=== PATIENT | male | born 1940 | race Caucasian/White ===

== ENCOUNTER 2017-04-09 17:08 | Inpatient (IN) | payer MEDICARE, OTHER ==
[~2017-04-09] VITALS: Ht 165.1 cm; Wt 52.4 kg
[~2017-04-09 17:08] MED LIST: ASPI1TAB7 PO; DONE10TA14 PO; NAME10SO PO; OMEP40CA2 PO; PRAV10 PO; TAMS0.4C4 PO
--- NOTE | 2017-04-09 17:52 | PD ---
HPI Chief Complaint: Thompson Act Time Seen by Provider: 17:32 Travel History International Travel<30 days: No Contact w/Intl Traveler<30days: No Traveled to known affect area: No History of Present Illness HPI This is a 76-year-old male with a history of dementia with acute agitation and aggressive behavior, who presents under Thompson act from the detention facility. Per daughter is at the bedside, the facility has been trying to increase his antipsychotic meds to no avail. He continues to have episodes of acute agitation and violence towards the fellow patients and staff. Patient's daughter states that they called her to the facility to help calm him down. She states that when she got there, he was much more calm and not his aggressive. He presents here today under the Thompson act with the above complaints. PFSH Past Medical History High Cholesterol: Yes Social History Alcohol Use: No Tobacco Use: No Substance Use: No Allergies-Medications (Allergen,Severity, Reaction): Coded Allergies: No Known Allergies (Unverified , 05/10/16) Reported Meds & Prescriptions Reported Meds & Active Scripts Active Review of Systems ROS Limitations: Clinical Condition, Other: (dementia) Except as stated in HPI: all other systems reviewed are Neg (review of systems Limited secondary to patient's demented status.) General / Constitutional: No: Fever, Chills HENT: No: Headaches, Neck Pain Cardiovascular: No: Chest Pain or Discomfort, Palpitations Respiratory: No: Cough, Shortness of Breath Gastrointestinal: No: Nausea, Vomiting, Abdominal Pain Musculoskeletal: No: Weakness, Pain Neurologic: Positive: Other (agitation and aggressive behavior), No: Headache Physical Exam Narrative GENERAL: Well-developed well-nourished gentleman in no acute respiratory distress. SKIN: Focused skin assessment warm/dry. HEAD: Atraumatic. Normocephalic. EYES: No scleral icterus. No injection or drainage. ENT: No nasal bleeding or discharge. Mucous membranes pink and moist. NECK: Trachea midline. No JVD. CARDIOVASCULAR: Regular rate and rhythm. No murmur appreciated. RESPIRATORY: No accessory muscle use. Clear to auscultation. Breath sounds equal bilaterally. GASTROINTESTINAL: Abdomen soft, non-tender, nondistended. Hepatic and splenic margins not palpable. MUSCULOSKELETAL: No obvious deformities. No clubbing. No cyanosis. No edema. NEUROLOGICAL: Awake and alert. No obvious cranial nerve deficits. Motor grossly within normal limits. Normal speech. PSYCHIATRIC: Appropriate mood and affect; insight and judgment normal. Data Data Last Documented VS Vital Signs Date Time Temp Pulse Resp B/P Pulse Ox O2 Delivery O2 Flow Rate FiO2 04/09/17 17:56 97.9 88 18 134/75 98 Orders Complete Blood Count With Diff (04/09/17 17:33) Comprehensive Metabolic Panel (04/09/17 17:33) Thyroid Stimulating Hormone (04/09/17 17:33) Urinalysis - C+S If Indicated (04/09/17 17:33) Psych Screen (04/09/17 17:33) Drug Screen, Random Urine (04/09/17 17:33) Ct Brain W/O Iv Contrast(Rout) (04/09/17 17:33) Chest, Single Ap (04/09/17 17:33) Labs Laboratory Tests Test 04/09/17 04/09/17 17:45 18:30 White Blood Count 9.8 TH/MM3 Red Blood Count 5.38 MIL/MM3 Hemoglobin 15.1 GM/DL Hematocrit 44.9 % Mean Corpuscular Volume 83.4 FL Mean Corpuscular Hemoglobin 28.0 PG Mean Corpuscular Hemoglobin 33.5 % Concent Red Cell Distribution Width 14.1 % Platelet Count 137 TH/MM3 Mean Platelet Volume 9.6 FL Neutrophils (%) (Auto) 80.5 % Lymphocytes (%) (Auto) 12.6 % Monocytes (%) (Auto) 5.9 % Eosinophils (%) (Auto) 0.3 % Basophils (%) (Auto) 0.7 % Neutrophils # (Auto) 7.9 TH/MM3 Lymphocytes # (Auto) 1.2 TH/MM3 Monocytes # (Auto) 0.6 TH/MM3 Eosinophils # (Auto) 0.0 TH/MM3 Basophils # (Auto) 0.1 TH/MM3 CBC Comment DIFF FINAL Differential Comment Sodium Level 142 MEQ/L Potassium Level 3.7 MEQ/L Chloride Level 109 MEQ/L Carbon Dioxide Level 24.2 MEQ/L Anion Gap 9 MEQ/L Blood Urea Nitrogen 34 MG/DL Creatinine 1.15 MG/DL Estimat Glomerular Filtration 62 ML/MIN Rate Random Glucose 113 MG/DL Calcium Level 9.1 MG/DL Total Bilirubin 0.8 MG/DL Aspartate Amino Transf 22 U/L (AST/SGOT) Alanine Aminotransferase 24 U/L (ALT/SGPT) Alkaline Phosphatase 99 U/L Total Protein 7.4 GM/DL Albumin 4.2 GM/DL Thyroid Stimulating Hormone 0.938 uIU/ML 3rd Gen Urine Color YELLOW Urine Turbidity CLEAR Urine pH 6.5 Urine Specific [place] 1.027 Urine Protein TRACE mg/dL Urine Glucose (UA) NEG mg/dL Urine Ketones TRACE mg/dL Urine Occult Blood NEG Urine Nitrite NEG Urine Bilirubin NEG Urine Urobilinogen 2.0 MG/DL Urine Leukocyte Esterase NEG Urine RBC 1 /hpf Urine WBC 1 /hpf Urine Mucus FEW /lpf Microscopic Urinalysis Comment CULT NOT INDICATED MDM Medical Decision Making Medical Screen Exam Complete: Yes Emergency Medical Condition: Yes Differential Diagnosis Psychosis versus metabolic derangement versus worsening dementia. Narrative Course 76-year-old male brought in under a Thompson act for psychotic behavior at his correction. The patient has a history of dementia. Apparently according to the daughter, they've been trying to stabilize his mood with Seroquel. They've been unsuccessful and had a Thompson acted. The patient is awake and cooperative here. Daughter states that he can get psychotic at any time. He is cooperative and in no acute distress. He'll be medically clear for psychiatric admission. He does have some mild ketones in his urine. He'll also be given by mouth fluids. Diagnosis Primary Impression: paroxysmal psychoses. Additional Impressions: Mild dehydration History of dementia medically cleared Franklyn Joy MD Apr 09, 2017 17:52
[2017-04-09 17:56] VITALS: BP 134/75; PULSE 88; RESP 18; TEMP 97.9; O2SAT 98
[2017-04-09 17:59] LABS: AUTOMATED NEUTROPHIL # 7.9 TH/MM3 (1.8-7.7); BASOPHIL # 0.1 TH/MM3 (0-0.2); BASOPHIL % 0.7 % (0.0-2.0); EOSINOPHIL % 0.3 % (0.0-4.0); HEMATOCRIT 44.9 % (39.0-51.0); HEMO FLAGS DIFF FINAL; LYMPH % 12.6 % (9.0-44.0); LYMPHOCYTE # 1.2 TH/MM3 (1.0-4.8); MEAN CELL VOLUME 83.4 FL (80.0-100.0); MEAN CORPUSCULAR HGB CONC 33.5 % (32.0-36.0); MONO % 5.9 % (0.0-8.0); NEUT % 80.5 % (16.0-70.0); PLATELET COUNT 137 TH/MM3 (150-450); RED BLOOD COUNT 5.38 MIL/MM3 (4.50-5.90); RED CELL DISTRIBUTION WIDTH 14.1 % (11.6-17.2); WHITE BLOOD COUNT 9.8 TH/MM3 (4.0-11.0)
--- NOTE | 2017-04-09 18:02 | RADRPT ---
EXAM DATE/TIME: 04/09/2017 17:42 [facility] COMPARISON: No previous studies available for comparison. INDICATIONS : Altered mental status. MEDICAL HISTORY : None. SURGICAL HISTORY : None. ENCOUNTER: Initial ACUITY: 1 day PAIN SCORE: 0/10 LOCATION: chest FINDINGS: A single view of the chest demonstrates the lungs to be symmetrically aerated without evidence of mas s, infiltrate or effusion. Calcifications are present in the aorta. The cardiomediastinal contours a re unremarkable. Osseous structures are intact. CONCLUSION: No acute disease. Chago Jara MD on April 09, 2017 at 17:59 Board Certified Radiologist. This report was verified electronically.
[2017-04-09 18:08] LABS: ANION GAP 9 MEQ/L (5-15); BICARBONATE 24.2 MEQ/L (21.0-32.0); BLOOD UREA NITROGEN 34 MG/DL (7-18); CHLORIDE 109 MEQ/L (98-107); GLOMERULAR FILTRATION RATE 62 ML/MIN (>89); POTASSIUM 3.7 MEQ/L (3.5-5.1); SODIUM (NA) 142 MEQ/L (136-145)
[2017-04-09 18:09] LABS: ALT (GPT) 24 U/L (12-78); AST (GOT) 22 U/L (15-37)
[2017-04-09 18:19] LABS: ALKALINE PHOSPHATASE 99 U/L (45-117); TOTAL BILIRUBIN ADULT 0.8 MG/DL (0.2-1.0)
--- NOTE | 2017-04-09 18:32 | RADRPT ---
EXAM DATE/TIME: 04/09/2017 18:11 [facility] COMPARISON: No previous studies available for comparison. INDICATIONS : Altered mental status. RADIATION DOSE: 49.86 CTDIvol (mGy) MEDICAL HISTORY : Non-responsive. SURGICAL HISTORY : Non-responsive. ENCOUNTER: Initial ACUITY: 1 day PAIN SCALE: 0/10 LOCATION: cranial TECHNIQUE: Multiple contiguous axial images were obtained of the head. Using automated exposure control and adj ustment of the mA and/or kV according to patient size, radiation dose was kept as low as reasonably a chievable to obtain optimal diagnostic quality images. DICOM format image data is available electro nically for review and comparison. FINDINGS: CEREBRUM: The ventricles are normal for age. No evidence of midline shift, mass lesion, hemorrhage or acute in farction. No extra-axial fluid collections are seen. POSTERIOR FOSSA: The cerebellum and brainstem are intact. The 4th ventricle is midline. The cerebellopontine angle i s unremarkable. EXTRACRANIAL: The visualized portion of the orbits is intact. SKULL: The calvaria is intact. No evidence of skull fracture. CONCLUSION: Negative noncontrast CT. Chago Jara MD on April 09, 2017 at 18:29 Board Certified Radiologist. This report was verified electronically.
[2017-04-09 18:41] LABS: BLOOD, URINE NEG (NEG); COMMENT (UR) CULT NOT INDICATED; CULTURE IF INDICATED CULT NOT INDICATED; GLUCOSE,URINE NEG (NEG); KETONE, URINE TRACE mg/dL (NEG); MUCUS URINE FEW /lpf (OCC); NITRITE,URINE NEG (NEG); PH, URINE 6.5 (5.0-8.5); URINE COLOR YELLOW (YELLW/STRAW)
[2017-04-09 19:11] VITALS: BP 123/59; PULSE 57; RESP 18; O2SAT 97
[2017-04-09] MEDS ORDERED: ABH GEL TOPICAL (19:23)
[2017-04-09] MEDS ORDERED: MEMA28CA PO (19:25)
[2017-04-09] MEDS ORDERED: TRAZ50TA12 PO (19:27)
[2017-04-09] MEDS ORDERED: TRAM50TA PO (19:36)
[2017-04-09] MEDS ORDERED: ATEN100T PO (19:36)
[2017-04-09] MEDS ORDERED: LORA1TAB12 PO ×2 (19:36)
[2017-04-09] MEDS ORDERED: PRAV20TA2 PO (19:36)
[2017-04-09] MEDS ORDERED: OMEP20TA PO (19:36)
[2017-04-09] MEDS ORDERED: TAMS0.4C4 PO (19:36)
[2017-04-09] MEDS ORDERED: ASPI-110 PO (19:36)
[2017-04-09] MEDS ORDERED: DONE10TA7 PO (19:36)
[2017-04-09] MEDS ORDERED: SERO300T PO (19:36)
[2017-04-09 21:42] LABS: AMPHETAMINE, URINE NEG (NEG); BARBITURATES, URINE NEG (NEG); COCAINE, URINE NEG (NEG)
[2017-04-10] VITALS (9 sets, daily range): BP systolic 109–187; BP diastolic 62–110; PULSE 53–88; RESP 18–20; TEMP 96.5–98.7; O2SAT 93–100
[2017-04-10] MEDS ORDERED: LORazepam 2 MG/ML VIAL IM ONE ×4 (05:30→18:30)
[2017-04-10] MEDS: HALOPERIDOL LACTATE 5 MG/ML AMP ONE ×2 (11:23→18:18)
--- NOTE | 2017-04-10 11:40 | PD ---
History of Present Illness Chief Complaint: Psychiatric Symptoms Time Seen by Provider: 11:00 Travel History International Travel<30 Days: No Contact w/Intl Traveler<30days: No Known affected area: No Legal Status Legal Status: Donna Act Thompson Act Signed By: Donna Act Comment: Dr. Aleks Ma History of Present Illness: History of Present Illness HPI This is a 76-year-old male with a history of dementia, resident of [facility] a [facility] who is under a BA .The reports states that " patient believes he is 16 years old. Seeing and talking to people. Undressing in hallways . Physically abusive with staff and other patient's." Per daughter who was at the bedside when the patient arrived to ED , the facility has been trying to increase his antipsychotic medications to no avail over the past 2 weeks and he continues to have episodes of acute agitation and violence towards the fellow patients and staff. EMR is reviewed. The patient was last evaluated by psychiatry in 2016. The patient has required ETO since he has been in Ed due to agitation, wandering behavior, not accepting verbal redirection. Patient is seen in J pod. Sitter is present. He is wandering, attempting to grab at staff, grabbing at housekeeping equipment as well. He responds to his name. demonstrates poor attention, poor concentration. Unable to focus and unable to answer questions posed to him. He tells me " You don 't like to work. You like to stay home and have sex". No other clinical information is obtained due to his degree of cognitive impairment [facility] Past Medical History High Cholesterol: Yes Diminished Hearing: No Tetanus Vaccination: < 5 Years Influenza Vaccination: Yes Psychiatric History Psychiatric History Hx Psychiatric Treatment: HX: ALZHEIMER'S DEMENTIA History of Inpatient Treatment: No Guns or firearms in home: No Social History Resident of [facility]. Born in [place] Hx Alcohol Use: No Hx Tobacco Use: No Hx Substance Use: No Hx of Substance Use Treatment: No Family Psychiatric History Unknown Allergies-Medications (Allergen,Severity, Reaction): Coded Allergies: No Known Allergies (Unverified , 05/10/16) Reported Meds & Prescriptions Reported Meds & Active Scripts Active Reported Aspirin 81 (Aspirin) 81 Mg Tabdr 81 Mg PO DAILY Atenolol 100 Mg Tab 100 Mg PO DAILY Tamsulosin (Tamsulosin HCl) 0.4 Mg Cap 0.4 Mg PO HS Donepezil 10 Mg Tab 10 Mg PO HS Pravastatin 20 Mg Tab 20 Mg PO HS Tramadol (Tramadol HCl) 50 Mg Tab 50 Mg PO TID Seroquel (Quetiapine Fumarate) 300 Mg Tab 150 Mg PO BID Lorazepam 1 Mg Tab 1 Mg PO Q6H PRN Lorazepam 1 Mg Tab 1 Mg PO BID Omeprazole 20 Mg Tab 20 Mg PO DAILY Trazodone (Trazodone HCl) 50 Mg Tab 25 Mg PO HS Namenda Xr (Memantine) 28 Mg Caper 28 Mg PO DAILY [Abh Gel ] 1 Ml TOPICAL Q4HR Review of Systems ROS Limitations: Combative, Poor Historian Exam Alert: Yes [place]: Person (only) Mood: Agitated Affect: Other (labile) Speech: Clear, Illogical Eye Contact: Normal Memory Intact: Comment (poor/ Impaired) Hallucinations: Other (does not appear to be responding tointernal s timuli) Delusions: No Suicidal: Ideation (unable to determine) Homicidal: Ideation (unable to determine) Insight/Judgement Poor. Impaired. MDM Medical Decision Making Medical Record Reviewed: Yes Assessment/Plan 76 year old male with hx of dementia who has increase in agitation, aggression as well as other behaviors for the past 2 weeks. Recent medication changes have been ineffective and the patient requires inpatient treatment in order to maintain his safety as well as the safety of others and to adjust medications in a safe and controlled environment. Admit to inpatient unit Orders Complete Blood Count With Diff (04/09/17 17:33) Comprehensive Metabolic Panel (04/09/17 17:33) Thyroid Stimulating Hormone (04/09/17 17:33) Urinalysis - C+S If Indicated (04/09/17 17:33) Psych Screen (04/09/17 17:33) Drug Screen, Random Urine (04/09/17 17:33) Ct Brain W/O Iv Contrast(Rout) (04/09/17 17:33) Chest, Single Ap (04/09/17 17:33) Haloperidol Inj (Haldol Inj) (04/10/17 00:00) Lorazepam Inj (Ativan Inj) (04/10/17 00:00) Restraints Non-Violent RAMA.Q3H (04/09/17 23:53) Lorazepam Inj (Ativan Inj) (04/10/17 05:30) Diet Regular Basic (04/10/17 Breakfast) Diet Regular Basic (04/10/17 Lunch) Haloperidol Inj (Haldol Inj) (04/10/17 11:23) Results Vital Signs Date Time Temp Pulse Resp B/P Pulse Ox O2 Delivery O2 Flow Rate FiO2 04/10/17 10:05 75 18 145/84 Room Air 04/10/17 06:00 80 20 117/62 93 Room Air 04/10/17 04:20 55 18 160/72 04/10/17 00:07 88 18 187/110 100 Room Air 04/09/17 19:11 57 18 123/59 97 Room Air 04/09/17 17:56 97.9 88 18 134/75 98 Laboratory Tests Test 04/09/17 04/09/17 17:45 18:30 White Blood Count 9.8 Red Blood Count 5.38 Hemoglobin 15.1 Hematocrit 44.9 Mean Corpuscular Volume 83.4 Mean Corpuscular Hemoglobin 28.0 Mean Corpuscular Hemoglobin 33.5 Concent Red Cell Distribution Width 14.1 Platelet Count 137 Mean Platelet Volume 9.6 Neutrophils (%) (Auto) 80.5 Lymphocytes (%) (Auto) 12.6 Monocytes (%) (Auto) 5.9 Eosinophils (%) (Auto) 0.3 Basophils (%) (Auto) 0.7 Neutrophils # (Auto) 7.9 Lymphocytes # (Auto) 1.2 Monocytes # (Auto) 0.6 Eosinophils # (Auto) 0.0 Basophils # (Auto) 0.1 CBC Comment DIFF FINAL Differential Comment Sodium Level 142 Potassium Level 3.7 Chloride Level 109 Carbon Dioxide Level 24.2 Anion Gap 9 Blood Urea Nitrogen 34 Creatinine 1.15 Estimat Glomerular Filtration 62 Rate Random Glucose 113 Calcium Level 9.1 Total Bilirubin 0.8 Aspartate Amino Transf 22 (AST/SGOT) Alanine Aminotransferase 24 (ALT/SGPT) Alkaline Phosphatase 99 Total Protein 7.4 Albumin 4.2 Thyroid Stimulating Hormone 0.938 3rd Gen Urine Color YELLOW Urine Turbidity CLEAR Urine pH 6.5 Urine Specific [place] 1.027 Urine Protein TRACE Urine Glucose (UA) NEG Urine Ketones TRACE Urine Occult Blood NEG Urine Nitrite NEG Urine Bilirubin NEG Urine Urobilinogen 2.0 Urine Leukocyte Esterase NEG Urine RBC 1 Urine WBC 1 Urine Mucus FEW Microscopic Urinalysis Comment CULT NOT INDICATED Urine Opiates Screen NEG Urine Barbiturates Screen NEG Urine Amphetamines Screen NEG Urine Benzodiazepines Screen NEG Urine Cocaine Screen NEG Urine Cannabinoids Screen NEG Diagnosis Primary Impression: Dementia with behavioral disturbance Additional Impression: Mild dehydration Admitting Information Admitting Physician Requests: Admit Problem Qualifiers Primary Impression: Dementia with behavioral disturbance Qualified Code: G30.8 - Alzheimer's dementia with behavioral disturbance, unspecified timing of dementia onset Chiara Bond [facility] Apr 10, 2017 11:40
[2017-04-10] MEDS ORDERED: ALUMINUM/MAGNESIUM/SIMETH 30 ML CUP PO PRN (11:45)
[2017-04-10] MEDS ORDERED: HALOPERIDOL LACTATE 5 MG/ML AMP IM ONE ×3 (11:45→18:00)
[2017-04-10] MEDS ORDERED: MAGNESIUM HYDROXIDE SUSP 30 ML CUP PO PRN (11:45)
[2017-04-10] MEDS ORDERED: ACETAMINOPHEN 325 MG TAB PO PRN (11:45)
[2017-04-11 06:00] VITALS: BP 133/80; PULSE 79; RESP 16; TEMP 97.8; O2SAT 94
[2017-04-11 10:53] LABS: ANION GAP 5 MEQ/L (5-15); BICARBONATE 29.6 MEQ/L (21.0-32.0); BLOOD UREA NITROGEN 32 MG/DL (7-18); CHLORIDE 109 MEQ/L (98-107); GLOMERULAR FILTRATION RATE 68 ML/MIN (>89); POTASSIUM 4.1 MEQ/L (3.5-5.1); SODIUM (NA) 144 MEQ/L (136-145)
[2017-04-11 10:56] LABS: HDL CHOLESTEROL 53.7 MG/DL (40.0-60.0); LDL CHOLESTEROL 113 MG/DL (0-99)
[2017-04-11] MEDS: MEMANTINE HCL 10 MG TAB PO SCH ×2 (11:00→21:32)
[2017-04-11] MEDS: ASPIRIN EC 81 MG TABEC PO SCH (11:00)
[2017-04-11] MEDS: PANTOPRAZOLE SOD 20 MG DELAYED RELEASE TAB PO SCH (11:00)
[2017-04-11] MEDS: QUEtiapine FUMARATE 300 MG TAB PO SCH ×2 (11:00→21:00)
--- NOTE | 2017-04-11 11:10 | HHI.HP ---
Provisional Diagnosis Admission Date Apr 10, 2017 at 11:33 [place] I. Dementia with behavioral disturbances [place] II. Deferred [place] III. BPH, HTN [place] IV. Advanced dementia [place] V. 35 Certification of Person's Competence To Provide Express and Informed Consent I have personally examined Arturo GarnettJr , a person being served at [facility] on, Apr 11, 2017 10:45. Express and informed consent means consent voluntarily given in writing, by a competent person, after sufficient explanation and disclosure of the subject matter involved to enable the person to make a knowing and willful decision without any element of force, fraud, deceit, duress, or other form of constraint or coercion. This person is 18 years of age or older, is not now known to be incompetent to consent to treatment with a guardian advocate, and does not have a health care surrogate or proxy currently making medical treatment decisions. I have found this person to be one of the following: [] Competent to provide express and informed consent, as defined above, for voluntary admission to this facility and is competent to provide express and informed consent for treatment. He/she has the consistent capacity to make well reasoned, willful, and knowing decisions concerning his or her medical or mental health treatment. The person fully and consistently understands the purpose of the admission for examination/placement and is fully capable of personally exercising all rights assured [place] [X] Incompetent to provide express and informed consent to voluntary admission, and this is incompetent to provide express and informed consent to treatment. The person must be transferred to involuntary status and a petition for a guardian advocate filed with the Circuit Court. [] Refusing to provide express and informed consent to voluntary admission but is competent to provide express and informed consent for treatment. The person must be discharged or transferred to involuntary status. Form shall be completed within 24 hours of a person's arrival at the receiving facility and filed in the clinical record of each person: 1. Admitted on a voluntary basis 2. Permitted to provide express and informed consent to his/her own treatment 3. Allowed to transfer from involuntary to voluntary status 4. Prior to permitting a person to consent to his or her own treatment after having been previously found incompetent to consent to treatment. History of Present Illness Capacity: Lacks Capacity HPI The patient is a is a 76-year-old man resident of [facility] a SNF, with psychiatric history of dementia, he is on Aricept 10 mg, Namenda 10 mg , Seroquel 150 minute 2 twice a day, trazodone 50 mg, medical history of BPH, HTN, who came to the ER under a BA . The reports states that "patient believes he is 16 years old. Seeing and talking to people. Undressing in hallways. Physically abusive with staff and other patient's." Per daughter on initial evaluation in the ER was at the bedside when the patient arrived to ED , she says that the facility has been trying to increase his antipsychotic medications over the past 2 weeks and he continues to have episodes of acute agitation and violence towards the fellow patients and staff. As per EMR is reviewed. The patient was last evaluated by psychiatry in 2016. The patient has required ETO since he has been in Ed due to agitation, wandering behavior, not accepting verbal redirection. As per Chiara Bond assessment yesterday Patient is seen in J pod. Sitter is present. He is wandering, attempting to grab at staff, grabbing at housekeeping equipment as well. He responds to his name. Demonstrates poor attention, poor concentration. Unable to focus and unable to answer questions posed to him. He tells me You dont like to work. You like to stay home and have sex". No other clinical information is obtained due to his degree of cognitive impairment. Today on psychiatric evaluation patient is found eating his breakfast, he seems to be calm, superficially cooperative, he is definitely confused and disorganized, he says that he is happy to be "here in this hotel". He described his mood as "very happy", he says that he lives somewhere in [place], but is unable to specify. He says that we are in September 1991, the cosmetics counter manager is Suman Brice. Patient does not know the reason of his hospitalization. He denies suicidal ideation, homicidal ideation, he denies visual and auditory hallucinations. Nurse in charge, Radha, is states that the patient has been on and off agitated in the unit, this morning he was running naked in the hallway, difficult to de-escalate verbally, hostile, alternating with periods of tranquility and good behavior. Review of Systems Constitutional: DENIES: Diaphoretic episodes, Fatigue, Fever, Weight gain, Weight loss, Chills, Dizziness, Change in appetite, Night Sweats Endocrine: DENIES: Heat/cold intolerance, Polydipsia, Polyuria, Polyphagia Eyes: DENIES: Blurred vision, Diplopia, Eye inflammation, Eye pain, Vision loss , Photosensitivity, Double Vision Respiratory: DENIES: Apneas, Cough, Snoring, Wheezing, Hemoptysis, Sputum production, Shortness of breath Cardiovascular: DENIES: Chest pain, Palpitations, Syncope, Dyspnea on Exertion , PND, Lower Extremity Edema, Orthopnea, Claudication Gastrointestinal: DENIES: Abdominal pain, Black stools, Bloody stools, Constipation, Diarrhea, Nausea, Vomiting, Difficulty Swallowing, Anorexia Genitourinary: DENIES: Sexual dysfunction, Urinary frequency, Urinary incontinence, Urgency, Hematuria, Dysuria, Nocturia, Penile Discharge, Testicular Pain, Testicular Swelling Musculoskeletal: DENIES: Joint pain, Muscle aches, Stiffness, Joint Swelling, Back pain, Neck pain Integumentary: DENIES: Abnormal pigmentation, Nail changes, Pruritus, Rash Hematologic/lymphatic: DENIES: Bruising, Lymphadenopathy Neurologic: COMPLAINS OF: Tremor Psychiatric: COMPLAINS OF: Agitation, Delusions Past Psych History Violence risk - others (6 mos) Increased Substance Abuse History Drugs/Alcohol past 12 months Unknown history of alcohol and drugs Past Family Social History Coded Allergies: No Known Allergies (Unverified , 05/10/16) Reported Medications Aspirin DR (Aspirin 81)81 Mg Tabdr81 Mg PO DAILY Ref 0 04/09/17 Atenolol 100 Mg Gaw717 Mg PO DAILY #60 TAB Ref 0 04/09/17 Tamsulosin 0.4 Mg Cap0.4 Mg PO HS #30 CAP Ref 0 04/09/17 Donepezil 10 Mg Tab10 Mg PO HS #30 TAB Ref 0 04/09/17 Pravastatin 20 Mg Tab20 Mg PO HS #30 TAB Ref 0 04/09/17 Tramadol 50 Mg Tab50 Mg PO TID Ref 0 04/09/17 Quetiapine (Seroquel)300 Mg [id number] Mg PO BID #60 TAB Ref 0 04/09/17 Lorazepam 1 Mg Tab1 Mg PO Q6H PRN (ANXIETY) Ref 0 04/09/17 Lorazepam 1 Mg Tab1 Mg PO BID Ref 0 04/09/17 Omeprazole 20 Mg Tab20 Mg PO DAILY #30 TAB Ref 0 04/09/17 Trazodone 50 Mg Tab25 Mg PO HS #30 TAB Ref 0 04/09/17 Memantine Er (Namenda Xr)28 Mg Caper28 Mg PO DAILY #30 CAP Ref 0 04/09/17 [Abh Gel ] No Conflict Check1 Ml TOPICAL Q4HR 04/09/17 Current Medications Medications (Trade) Dose Ordered Sig/Janine Route Start Time Stop Time Status Last Admin (Tylenol) 650 mg Q4H PRN PO 04/10/17 11:45 (Milk Of Magnesia Liq) 30 ml DAILY PRN PO 04/10/17 11:45 (Mag-Al Plus Susp Liq) 30 ml Q6H PRN PO 04/10/17 11:45 (Ecotrin Ec) 81 mg DAILY PO 04/11/17 11:00 (Tenormin) 100 mg DAILY PO 04/11/17 12:00 (Aricept) 10 mg HS PO 04/11/17 21:00 (Pravachol) 20 mg HS PO 04/11/17 21:00 UNV (SEROquel) 150 mg BID PO 04/11/17 10:30 UNV (Flomax) 0.4 mg HS PO 04/11/17 21:00 (Desyrel) 25 mg HS PO 04/11/17 21:00 Non-Formulary Medication 28 mg DAILY PO 04/11/17 10:30 UNV (Protonix) 20 mg DAILY PO 04/11/17 11:00 Family History Patient denies family psychiatric history Social History Patient lives in a LONGTERM. Physical Exam On physical examination patient has bilateral intention tremor, but no EPS, no withdrawal, not stiffness, present, no significant gait disturbance, Vital Signs Vital Signs Date Time Temp Pulse Resp B/P Pulse Ox O2 Delivery O2 Flow Rate FiO2 04/11/17 06:00 97.8 79 16 133/80 94 04/10/17 12:30 Room Air I/O 04/10/17 04/10/17 04/11/17 08:00 16:00 00:00 Intake Total 240 ml Balance 240 ml Lab Results Laboratory Tests Test 04/09/17 04/09/17 17:45 18:30 White Blood Count 9.8 Red Blood Count 5.38 Hemoglobin 15.1 Hematocrit 44.9 Mean Corpuscular Volume 83.4 Mean Corpuscular Hemoglobin 28.0 Mean Corpuscular Hemoglobin 33.5 Concent Red Cell Distribution Width 14.1 Platelet Count 137 Mean Platelet Volume 9.6 Neutrophils (%) (Auto) 80.5 Lymphocytes (%) (Auto) 12.6 Monocytes (%) (Auto) 5.9 Eosinophils (%) (Auto) 0.3 Basophils (%) (Auto) 0.7 Neutrophils # (Auto) 7.9 Lymphocytes # (Auto) 1.2 Monocytes # (Auto) 0.6 Eosinophils # (Auto) 0.0 Basophils # (Auto) 0.1 CBC Comment DIFF FINAL Differential Comment Sodium Level 142 Potassium Level 3.7 Chloride Level 109 Carbon Dioxide Level 24.2 Anion Gap 9 Blood Urea Nitrogen 34 Creatinine 1.15 Estimat Glomerular Filtration 62 Rate Random Glucose 113 Calcium Level 9.1 Total Bilirubin 0.8 Aspartate Amino Transf 22 (AST/SGOT) Alanine Aminotransferase 24 (ALT/SGPT) Alkaline Phosphatase 99 Total Protein 7.4 Albumin 4.2 Thyroid Stimulating Hormone 0.938 3rd Gen Urine Color YELLOW Urine Turbidity CLEAR Urine pH 6.5 Urine Specific [place] 1.027 Urine Protein TRACE Urine Glucose (UA) NEG Urine Ketones TRACE Urine Occult Blood NEG Urine Nitrite NEG Urine Bilirubin NEG Urine Urobilinogen 2.0 Urine Leukocyte Esterase NEG Urine RBC 1 Urine WBC 1 Urine Mucus FEW Microscopic Urinalysis Comment CULT NOT INDICATED Urine Opiates Screen NEG Urine Barbiturates Screen NEG Urine Amphetamines Screen NEG Urine Benzodiazepines Screen NEG Urine Cocaine Screen NEG Urine Cannabinoids Screen NEG Mental Status Examination Appearance Elderly man, in hospital [facility], age appearing, he is now calm, superficially cooperative Speech: Hesitant Orientation: Person Memory: Impaired (describe) Thought Process: Loose Association, Tangential Thought Content: Derealization Hallucination Type: None Attention and Concentration: Abnormal Suicidal Ideation: No Previous Suicide Attempts: No Homicidal Ideation: No Previous Homicide Attempts: No Insight: Poor Judgment: Poor Affect: Irritable Mood: Appropriate Motor Activity: Normal gait Assessment & Plan Problem List: (1) Dementia with behavioral disturbance Assessment & Plan: Patient with severe dementia, presents with periods of agitation, aggressive behavior, hostility, disorganization that has been difficult to manage in a LONGTERM with current psychotropic regimen. When patient is agitated and aggressive he seems to be difficult to be verbally de-escalate periods, patient can become a potential risk of danger to self and others. Patient needs continue psychiatric hospitalization for stabilization. Will restart his psychotropic and medical medications: Aspirin 81 (Aspirin) 81 Mg Tabdr 81 Mg PO DAILYAtenolol 100 Mg Tab 100 Mg PO DAILY Tamsulosin (Tamsulosin HCl) 0.4 Mg Cap 0.4 Mg PO HS Donepezil 10 Mg Tab 10 Mg PO HS Pravastatin 20 Mg Tab 20 Mg PO HS Tramadol (Tramadol HCl) 50 Mg Tab 50 Mg PO TID Seroquel ( Quetiapine Fumarate) 300 Mg Tab 150 Mg PO BID Omeprazole 20 Mg Tab 20 Mg PO DAILY Trazodone (Trazodone HCl) 50 Mg Tab 25 Mg PO HS Namenda Xr (Memantine) 28 Mg Caper 28 Mg PO DAILY. Will consult psychiatric for second opinion, will consult hospitalist for management of underlying medical conditions. Will place patient in one-to-one observation for safety. hand worker intervention for collateral information, also for psychosocial assessment, discharge planning , individual and group therapy. ICD Code: F03.91 Assessment & Plan Estimated LOS: days Problem Qualifiers (1) Dementia with behavioral disturbance: Qualified Code: G30.8 - Alzheimer's dementia with behavioral disturbance, unspecified timing of dementia onset Pepe Coto MD Apr 11, 2017 11:10
[2017-04-11] MEDS: ATENOLOL 100 MG TAB PO SCH (12:00)
[2017-04-11 18:00] VITALS: BP 92/63; PULSE 73; TEMP 98.6; O2SAT 97
[2017-04-11] MEDS: traZODone HCL 50 MG TAB PO SCH (21:30)
[2017-04-11] MEDS: DONEPEZIL HCL 5 MG TAB PO SCH (21:30)
[2017-04-11] MEDS: TAMSULOSIN HCL 0.4 MG CAP PO SCH (21:30)
[2017-04-11] MEDS: PRAVASTATIN SOD 20 MG TAB PO SCH (21:31)
[2017-04-12 05:39] VITALS: BP 127/57; PULSE 56; RESP 18; TEMP 97.4
[2017-04-12] MEDS: QUEtiapine FUMARATE 300 MG TAB PO SCH ×2 (09:00→22:03)
[2017-04-12] MEDS: ASPIRIN EC 81 MG TABEC PO SCH (10:27)
[2017-04-12] MEDS: ATENOLOL 100 MG TAB PO SCH (10:27)
[2017-04-12] MEDS: PANTOPRAZOLE SOD 20 MG DELAYED RELEASE TAB PO SCH (10:27)
[2017-04-12] MEDS: MEMANTINE HCL 10 MG TAB PO SCH ×2 (10:27→22:02)
--- NOTE | 2017-04-12 10:48 | PD.CONS ---
Provisional Diagnosis Admission Date Apr 10, 2017 at 11:33 [place] I. Dementia with behavioral disturbances [place] II. Deferred [place] III. BPH, HTN [place] IV. Advanced dementia [place] V. 35 History of Present Illness Service Psychiatry Consult Requested By Psychiatry Reason for Consult 2nd Opinion Primary Care Physician Aleks Bruce MD HPI Pt seen and discussed [facility] staff. Chart reviewed. Pt is a 76 YOWM with a hx of dementia who was admitted to [facility] under a BA due to aggressive behavior at the intermediate that he resides. Staff state that pt required two ETOs since admission due to aggression and dangerous behavior. He is now on a 1:1 for safety. He stated to the RN that his father was talking to him. Staff state that he wanders and exit seeks and is impulsive, but has been cooperative with medications. Pt is pleasant during interview. He is oriented to self only. He reports year as 1971 and the POTUS as "Eisenhower". Past Family Social History Coded Allergies: No Known Allergies (Unverified , 05/10/16) Past Medical History previous admission to [facility] for dementia Reported Medications Aspirin DR (Aspirin 81)81 Mg Tabdr81 Mg PO DAILY Ref 0 04/09/17 Atenolol 100 Mg Pyo281 Mg PO DAILY #60 TAB Ref 0 04/09/17 Tamsulosin 0.4 Mg Cap0.4 Mg PO HS #30 CAP Ref 0 04/09/17 Donepezil 10 Mg Tab10 Mg PO HS #30 TAB Ref 0 04/09/17 Pravastatin 20 Mg Tab20 Mg PO HS #30 TAB Ref 0 04/09/17 Tramadol 50 Mg Tab50 Mg PO TID Ref 0 04/09/17 Quetiapine (Seroquel)300 Mg Epo123 Mg PO BID #60 TAB Ref 0 04/09/17 Lorazepam 1 Mg Tab1 Mg PO Q6H PRN (ANXIETY) Ref 0 04/09/17 Lorazepam 1 Mg Tab1 Mg PO BID Ref 0 04/09/17 Omeprazole 20 Mg Tab20 Mg PO DAILY #30 TAB Ref 0 04/09/17 Trazodone 50 Mg Tab25 Mg PO HS #30 TAB Ref 0 04/09/17 Memantine Er (Namenda Xr)28 Mg Caper28 Mg PO DAILY #30 CAP Ref 0 04/09/17 [Abh Gel ] No Conflict Check1 Ml TOPICAL Q4HR 04/09/17 Current Medications Medications (Trade) Dose Ordered Sig/Janine Route Start Time Stop Time Status Last Admin (Tylenol) 650 mg Q4H PRN PO 04/10/17 11:45 (Milk Of Magnesia Liq) 30 ml DAILY PRN PO 04/10/17 11:45 (Mag-Al Plus Susp Liq) 30 ml Q6H PRN PO 04/10/17 11:45 (Ecotrin Ec) 81 mg DAILY PO 04/11/17 11:00 04/12/17 10:27 (Tenormin) 100 mg DAILY PO 04/11/17 12:00 04/12/17 10:27 (Aricept) 10 mg HS PO 04/11/17 21:00 04/11/17 21:30 (Pravachol) 20 mg HS PO 04/11/17 21:00 04/11/17 21:31 (SEROquel) 150 mg BID PO 04/11/17 11:00 04/12/17 09:00 (Flomax) 0.4 mg HS PO 04/11/17 21:00 04/11/17 21:30 (Desyrel) 25 mg HS PO 04/11/17 21:00 04/11/17 21:30 (Namenda) 10 mg BID PO 04/11/17 11:00 04/12/17 10:27 (Protonix) 20 mg DAILY PO 04/11/17 11:00 04/12/17 10:27 Family History unable to give Social History Has adult daughter and son-in-law who are involved in care. Daughter is POA. Lives at [facility]. Patient's Strengths (min. 2) verbal, access to care, family support Physical Exam Vital Signs Vital Signs Date Time Temp Pulse Resp B/P Pulse Ox O2 Delivery O2 Flow Rate FiO2 04/12/17 05:39 97.4 56 18 127/57 04/11/17 18:00 97 04/10/17 12:30 Room Air I/O 04/11/17 04/11/17 04/12/17 08:00 16:00 00:00 Intake Total 360 ml 240 ml Balance 360 ml 240 ml Mental Status Examination Speech: Hesitant Orientation: Person Memory: Impaired (describe) Thought Process: Loose Association Thought Content: Paranoid Hallucination Type: None Attention and Concentration: Easily Distracted Suicidal Ideation: No Previous Suicide Attempts: No Homicidal Ideation: No Previous Homicide Attempts: No Insight: Poor Judgment: Poor Affect if Inappropriate: Flat Mood: Appropriate Motor Activity: Normal gait Assessment & Plan Problem List: (1) Dementia with behavioral disturbance ICD Code: F03.91 Assessment & Plan I agree that pt meets involuntary hospitalization criteria due severe cognitive impairments and agitation. 2nd opinion paperwork completed. Estimated LOS: days Problem Qualifiers (1) Dementia with behavioral disturbance: Qualified Code: G30.8 - Alzheimer's dementia with behavioral disturbance, unspecified timing of dementia onset Jennifer Durham MD Apr 12, 2017 10:48
[2017-04-12 13:31] LABS: HEMOGLOBIN A1a 0.9 %; HEMOGLOBIN A1b 1.6 %; HEMOGLOBIN Ao 85.9 %; HEMOGLOBIN LA1C 2.1 %; HEMOGLOBIN P3 3.6 %
[2017-04-12] MEDS: traZODone HCL 50 MG TAB PO SCH (22:02)
[2017-04-12] MEDS: DONEPEZIL HCL 5 MG TAB PO SCH (22:02)
[2017-04-12] MEDS: PRAVASTATIN SOD 20 MG TAB PO SCH (22:03)
[2017-04-12] MEDS: TAMSULOSIN HCL 0.4 MG CAP PO SCH (22:03)
[2017-04-13 05:34] VITALS: BP 109/56; PULSE 56; RESP 16; TEMP 97.8; O2SAT 95
[2017-04-13] MEDS: ASPIRIN EC 81 MG TABEC PO SCH (09:14)
[2017-04-13] MEDS: PANTOPRAZOLE SOD 20 MG DELAYED RELEASE TAB PO SCH (09:14)
[2017-04-13] MEDS: ATENOLOL 100 MG TAB PO SCH (09:14)
[2017-04-13] MEDS: QUEtiapine FUMARATE 300 MG TAB PO SCH ×2 (09:14→22:18)
[2017-04-13] MEDS: MEMANTINE HCL 10 MG TAB PO SCH ×2 (09:14→22:17)
--- NOTE | 2017-04-13 12:28 | HHI.PYPN ---
Subjective Remarks Patient discussed with treatment team, patient seen on unit with medical student Yunior, chart reviewed. Patient continues with a one-to-one due to his recent history of aggressive behavior and exits seeking. However the patient did have 2 doses of Haldol on 04/10 this appears to have benefited him. It appears he has been otherwise on scheduled Seroquel 150 mg twice a day. Patient continues calm with the one-to-one though somewhat wandering and mildly exits seeking. For now we will consolidate the Seroquel to 30 mg at at bedtime starting tomorrow night, add Haldol 1 mg twice a day 8 AM and 4 PM, and discontinue the trazodone. Will attempt to talk with patient's family to discuss further treatment options and perhaps placement issues. At this time I feel patient does not have capacity deciphered medications will order a health care surrogate and a guardian advocate Review of Systems Except as stated in HPI: all other systems reviewed are Neg Objective Alert: Yes [place]: Person (only) Mood: Agitated Affect: Other (labile) Memory Intact: Comment (poor/ Impaired) Hallucinations: Other (does not appear to be responding tointernal s timuli) Delusions: No Delusion Type: Other (somewhat vigilant) Suicidal: Ideation (unable to determine) Homicidal: Ideation (unable to determine) Insight/Judgment Very poor Vitals/IOs Vital Signs Date Time Temp Pulse Resp B/P Pulse Ox O2 Delivery O2 Flow Rate FiO2 04/13/17 05:34 97.8 56 16 109/56 95 04/10/17 12:30 Room Air Intake and Output 04/12/17 04/12/17 04/13/17 08:00 16:00 00:00 Intake Total 720 ml 240 ml Balance 720 ml 240 ml Assessment & Plan Problem List: (1) Dementia with behavioral disturbance ICD Code: F03.91 Assessment & Plan Estimated LOS: days patient continues demented and confused, that appears his behavior started to come under control. She medication adjustments above Justification for Cont. Inpt. At this time patient will decompensate then placed in a lower level of care Discharge Planning To be determined Request HC Surrog/Guard Advoc?: Yes Problem Qualifiers (1) Dementia with behavioral disturbance: Qualified Code: G30.8 - Alzheimer's dementia with behavioral disturbance, unspecified timing of dementia onset Peter Fang MD 26, 2017 12:28
[2017-04-13] MEDS ORDERED: LORazepam 2 MG/ML VIAL IM STA (13:00)
[2017-04-13] MEDS ORDERED: HALOPERIDOL LACTATE 5 MG/ML AMP IM STA (13:00)
[2017-04-13] MEDS: HALOPERIDOL 1 MG TAB PO SCH (16:41)
[2017-04-13 18:00] VITALS: BP 99/55; PULSE 55; RESP 18; TEMP 97.5; O2SAT 95
[2017-04-13] MEDS: PRAVASTATIN SOD 20 MG TAB PO SCH (22:17)
[2017-04-13] MEDS: DONEPEZIL HCL 5 MG TAB PO SCH (22:17)
[2017-04-13] MEDS: TAMSULOSIN HCL 0.4 MG CAP PO SCH (22:18)
[2017-04-14 06:00] VITALS: BP 137/67; PULSE 54; RESP 16; O2SAT 97
[2017-04-14] MEDS: HALOPERIDOL 1 MG TAB PO SCH ×2 (08:00→15:55)
[2017-04-14] MEDS: ATENOLOL 100 MG TAB PO SCH (09:00)
[2017-04-14] MEDS: MEMANTINE HCL 10 MG TAB PO SCH ×2 (09:00→21:45)
[2017-04-14] MEDS: PANTOPRAZOLE SOD 20 MG DELAYED RELEASE TAB PO SCH (09:00)
[2017-04-14] MEDS: ASPIRIN EC 81 MG TABEC PO SCH (09:00)
--- NOTE | 2017-04-14 13:08 | HHI.PYPN ---
Subjective Remarks Patient seen in dayroom with medical student Yunior, chart reviewed, patient compliant medication. Patient continues diffusely confused and demented, though not as intrusive or labile. He is calmer more directable is ambulatory. We'll discontinue the one-to-one sitter place patient on close observation with off unit privileges Review of Systems Except as stated in HPI: all other systems reviewed are Neg Objective Alert: Yes [place]: Person (only) Mood: Agitated Affect: Other (labile) Memory Intact: Comment (poor/ Impaired) Hallucinations: Other (does not appear to be responding tointernal s timuli) Delusions: No Delusion Type: Other (somewhat vigilant) Suicidal: Ideation (unable to determine) Homicidal: Ideation (unable to determine) Insight/Judgment Poor Vitals/IOs Vital Signs Date Time Temp Pulse Resp B/P Pulse Ox O2 Delivery O2 Flow Rate FiO2 04/14/17 06:00 54 16 137/67 97 04/13/17 18:00 97.5 04/10/17 12:30 Room Air Intake and Output 04/13/17 04/13/17 04/14/17 08:00 16:00 00:00 Intake Total 0 ml 120 ml 600 ml Balance 0 ml 120 ml 600 ml Assessment & Plan Problem List: (1) Dementia with behavioral disturbance ICD Code: F03.91 Assessment & Plan Estimated LOS: days patient continues confused and demented, though behaviors, will discontinue one-to-one place patient on close observations off unit privileges. Justification for Cont. Inpt. At this time patient will decompensate then placed in the lower level of care Discharge Planning To be determined Request HC Surrog/Guard Advoc?: Yes Problem Qualifiers (1) Dementia with behavioral disturbance: Qualified Code: G30.8 - Alzheimer's dementia with behavioral disturbance, unspecified timing of dementia onset Peter Fang MD Apr 14, 2017 13:08
[2017-04-14 17:45] VITALS: BP 124/58; PULSE 47; TEMP 97.6
[2017-04-14] MEDS: TAMSULOSIN HCL 0.4 MG CAP PO SCH (21:45)
[2017-04-14] MEDS: QUEtiapine FUMARATE 300 MG TAB PO SCH (21:45)
[2017-04-14] MEDS: PRAVASTATIN SOD 20 MG TAB PO SCH (21:46)
[2017-04-14] MEDS: DONEPEZIL HCL 5 MG TAB PO SCH (21:46)
[2017-04-15 06:28] VITALS: BP 94/57; PULSE 100; RESP 18; TEMP 97.7; O2SAT 98
[2017-04-15] MEDS: HALOPERIDOL 1 MG TAB PO SCH ×2 (08:00→16:00)
[2017-04-15] MEDS: MEMANTINE HCL 10 MG TAB PO SCH ×2 (09:00→21:18)
[2017-04-15] MEDS: ASPIRIN EC 81 MG TABEC PO SCH (09:00)
[2017-04-15] MEDS: PANTOPRAZOLE SOD 20 MG DELAYED RELEASE TAB PO SCH (09:00)
[2017-04-15] MEDS: ATENOLOL 100 MG TAB PO SCH (09:00)
[2017-04-15 10:19] VITALS: BP 126/68; PULSE 80
--- NOTE | 2017-04-15 11:14 | HHI.PYPN ---
Subjective Remarks Patient seen in his room with nurse Carmenza chart review, patient calm cooperative though continues diffusely confused and disoriented. No significant behavioral problems. Compliant medication Review of Systems Except as stated in HPI: all other systems reviewed are Neg Objective Alert: Yes [place]: Person (only) Mood: Agitated Affect: Other (labile) Memory Intact: Comment (poor/ Impaired) Hallucinations: Other (does not appear to be responding tointernal s timuli) Delusions: No Delusion Type: Other (somewhat vigilant) Suicidal: Ideation (unable to determine) Homicidal: Ideation (unable to determine) Insight/Judgment Poor Vitals/IOs Vital Signs Date Time Temp Pulse Resp B/P Pulse Ox O2 Delivery O2 Flow Rate FiO2 04/15/17 10:19 80 126/68 04/15/17 06:28 97.7 18 98 Intake and Output 04/14/17 04/14/17 04/15/17 08:00 16:00 00:00 Intake Total 720 ml 1900 ml Balance 720 ml 1900 ml Assessment & Plan Problem List: (1) Dementia with behavioral disturbance ICD Code: F03.91 Assessment & Plan Estimated LOS: days patient continues diffusely confused and demented, but no significant behavioral problems. Compliant medication. Justification for Cont. Inpt. At this time patient will decompensate and placed in the lower level of care Discharge Planning To be determined Request HC Surrog/Guard Advoc?: Yes Problem Qualifiers (1) Dementia with behavioral disturbance: Qualified Code: G30.8 - Alzheimer's dementia with behavioral disturbance, unspecified timing of dementia onset Peter Fang MD Apr 15, 2017 11:14
[2017-04-15 18:00] VITALS: BP 115/58; PULSE 57; RESP 19; TEMP 92.5; O2SAT 96
[2017-04-15] MEDS: PRAVASTATIN SOD 20 MG TAB PO SCH (21:18)
[2017-04-15] MEDS: TAMSULOSIN HCL 0.4 MG CAP PO SCH (21:18)
[2017-04-15] MEDS: DONEPEZIL HCL 5 MG TAB PO SCH (21:18)
[2017-04-15] MEDS: QUEtiapine FUMARATE 300 MG TAB PO SCH (21:18)
[2017-04-16 06:04] VITALS: BP 114/55; PULSE 58; RESP 18; TEMP 98; O2SAT 97
[2017-04-16] MEDS: HALOPERIDOL 1 MG TAB PO SCH ×2 (08:00→16:00)
[2017-04-16] MEDS: ASPIRIN EC 81 MG TABEC PO SCH (09:00)
[2017-04-16] MEDS: MEMANTINE HCL 10 MG TAB PO SCH ×2 (09:00→21:03)
[2017-04-16] MEDS: ATENOLOL 100 MG TAB PO SCH (09:00)
[2017-04-16] MEDS: PANTOPRAZOLE SOD 20 MG DELAYED RELEASE TAB PO SCH (09:00)
--- NOTE | 2017-04-16 10:07 | HHI.PYPN ---
Subjective Remarks Patient seen in [address], with medical student Yunior, chart reviewed, patient compliant medication. Patient retained by Hand Shoe Cutter [place]. Patient continues confused demented though no significant behavioral problems, overall cooperative with staff. For now continue treatment Review of Systems Except as stated in HPI: all other systems reviewed are Neg Objective Alert: Yes [place]: Person (only) Mood: Agitated Affect: Other (labile) Memory Intact: Comment (poor/ Impaired) Hallucinations: Other (does not appear to be responding tointernal s timuli) Delusions: No Delusion Type: Other (somewhat vigilant) Suicidal: Ideation (unable to determine) Homicidal: Ideation (unable to determine) Insight/Judgment Very poor Vitals/IOs Vital Signs Date Time Temp Pulse Resp B/P Pulse Ox O2 Delivery O2 Flow Rate FiO2 04/16/17 06:04 98.0 58 18 114/55 97 Intake and Output 04/15/17 04/15/17 04/16/17 08:00 16:00 00:00 Intake Total 240 ml 240 ml 720 ml Balance 240 ml 240 ml 720 ml Assessment & Plan Problem List: (1) Dementia with behavioral disturbance ICD Code: F03.91 Assessment & Plan Estimated LOS: days patient retained in [place] [address] by Hand Shoe Cutter [place], patient continues confused demented though no significant behavioral problems Justification for Cont. Inpt. At this time patient will decompensate if placed in a lower level of care Discharge Planning To be determined Request HC Surrog/Guard Advoc?: Yes Problem Qualifiers (1) Dementia with behavioral disturbance: Qualified Code: G30.8 - Alzheimer's dementia with behavioral disturbance, unspecified timing of dementia onset Peter Fang MD Apr 16, 2017 10:07
--- NOTE | 2017-04-16 17:56 | PD.CONS ---
[facility] By [facility]iatry team Reason for Consult Medical management, patient's evidence of bites Primary Care Physician Aleks Bruce MD Diagnoses: History of Present Illness Written by Laura De La Vega, acting as scribe for Dr. Oswald on 04/16/17 at 17: 38. Patient is a 76-year-old male with primary medical history of hyperlipidemia, dementia, Alzheimer's with aggressive behavior who came in under [place] act [facility] secondary to being violent towards fellow patients and staff. He is now admitted to inpatient psychiatry unit for further evaluation. Consulted for medical management, and insect bites. Patient seen and examined today. Reports he doesn't know why he is in the facility. He states that he is in a alf home unable to tell the year, ordered a place location where he is at. States he just woke up to the place and he is looking for Savita and her . Patient is unable to provide information on this past medical history, denies any surgical histories. States that he has tooth problems and that's all he knows. He is also unable to tell where he got the lesions on his left arm and bilateral thigh. States it doesn't itch or bother him. Denies pain and discomfort. Denies SOB/ dyspnea. Denies chest pain, palpitations, headaches, dizziness. Denies fevers, chills, n/ v/d. Denies dysuria. Review of Systems ROS Limitations: Poor Historian Past Family Social History Allergies: Coded Allergies: No Known Allergies (Unverified , 05/10/16) Past Medical History As per review of records Hyperlipidemia Dementia Alzheimer's disease Past Surgical History As per patient, None except for tooth extractions Reported Medications Reported Meds & Active Scripts Active Reported Aspirin 81 (Aspirin) 81 Mg Tabdr 81 Mg PO DAILY Atenolol 100 Mg Tab 100 Mg PO DAILY Tamsulosin (Tamsulosin HCl) 0.4 Mg Cap 0.4 Mg PO HS Donepezil 10 Mg Tab 10 Mg PO HS Pravastatin 20 Mg Tab 20 Mg PO HS Tramadol (Tramadol HCl) 50 Mg Tab 50 Mg PO TID Seroquel (Quetiapine Fumarate) 300 Mg Tab 150 Mg PO BID Lorazepam 1 Mg Tab 1 Mg PO Q6H PRN Lorazepam 1 Mg Tab 1 Mg PO BID Omeprazole 20 Mg Tab 20 Mg PO DAILY Trazodone (Trazodone HCl) 50 Mg Tab 25 Mg PO HS Namenda Xr (Memantine) 28 Mg Caper 28 Mg PO DAILY [Abh Gel ] 1 Ml TOPICAL Q4HR Active Ordered Medications Current Medications Medications (Trade) Dose Ordered Sig/Janine Route Start Time Stop Time Status Last Admin (Tylenol) 650 mg Q4H PRN PO 04/10/17 11:45 (Milk Of Magnesia Liq) 30 ml DAILY PRN PO 04/10/17 11:45 (Mag-Al Plus Susp Liq) 30 ml Q6H PRN PO 04/10/17 11:45 (Ecotrin Ec) 81 mg DAILY PO 04/11/17 11:00 04/16/17 09:00 (Tenormin) 100 mg DAILY PO 04/11/17 12:00 04/16/17 09:00 (Aricept) 10 mg HS PO 04/11/17 21:00 04/15/17 21:18 (Pravachol) 20 mg HS PO 04/11/17 21:00 04/15/17 21:18 (Flomax) 0.4 mg HS PO 04/11/17 21:00 04/15/17 21:18 (Namenda) 10 mg BID PO 04/11/17 11:00 04/16/17 09:00 (Protonix) 20 mg DAILY PO 04/11/17 11:00 04/16/17 09:00 (SEROquel) 300 mg HS PO 04/14/17 21:00 04/15/17 21:18 (Haldol) 1 mg BID@08,16 PO 04/13/17 16:00 04/16/17 16:00 (Hibiclens 4% Top Soln) 1 applic DAILY TOPICAL 04/17/17 09:00 04/27/17 08:59 (Baciguent Oint) 1 applic DAILY TOPICAL 04/17/17 09:00 Family History Patient states nothing but teeth problems Social History 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 Denies tobacco use Denies alcohol use Denies illicit drug use Physical Exam Vital Signs Vital Signs Date Time Temp Pulse Resp B/P Pulse Ox O2 Delivery O2 Flow Rate FiO2 04/16/17 06:04 98.0 58 18 114/55 97 04/15/17 18:00 92.5 57 19 115/58 96 Physical Exam GENERAL: This is a well-nourished, well-developed patient, in no apparent distress. SKIN: Cool and dry. Left arm lesion open wound, positive erythema, no edema, no drainage noted. Bilateral thigh area open lesion, positive erythema, no edema, no drainage noted. HEAD: Atraumatic. Normocephalic. No temporal or scalp tenderness. EYES: Pupils equal round and reactive. Extraocular motions intact. No scleral icterus. No injection or drainage. ENT: Nose without bleeding. Throat without erythema. Uvula midline. Airway patent. NECK: Trachea midline. No JVD or lymphadenopathy. Supple, nontender, no meningeal signs. CARDIOVASCULAR: Regular rate and rhythm without murmurs, gallops, or rubs. RESPIRATORY: Clear to auscultation. Breath sounds equal bilaterally. No wheezes , rales, or rhonchi. GASTROINTESTINAL: Abdomen soft, non-tender, nondistended. MUSCULOSKELETAL: Extremities without clubbing, cyanosis, or edema. Left arm tremors NEUROLOGICAL: Awake and alert. Oriented to self. Motor and sensory grossly within normal limits. Normal speech. Assessment and Plan Problem List: (1) History of dementia ICD Code: Z86.59 Status: Acute (2) Dementia with behavioral disturbance ICD Code: F03.91 Status: Acute (3) Mild dehydration ICD Code: E86.0 Status: Acute (4) Insect bite ICD Code: W57.XXXA Status: Acute Assessment and Plan Patient is a 76-year-old male with primary medical history of hyperlipidemia, dementia, Alzheimer's with aggressive behavior who came in under [place] act from [facility] secondary to being violent towards fellow patients and staff. He is now admitted to inpatient psychiatry unit for further evaluation. Consulted for medical management, and insect bites. Dementia, Alzheimer's disease with agitation and aggressive behavior - Managed by psychiatry team Skin lesions - Chlorhexidine wash daily - Apply bacitracin to the area covered with dry dressing - Benadryl for urticaria/pruritus - Wound care Hyperlipidemia - May benefit with atorvastatin 20 mg - Check lipid panel in 3 months as an outpatient Left arm tremors, possible generalized tremors - On atenolol 100 mg daily DVT prop ambulatory Code Status Full code Discussed Condition With Patient, nursing This note was transcribed by zackery De La Vega. I, Dr. Chago Oswald personally performed the history, physical exam, and medical decision making; and confirmed the accuracy of the information in the transcribed note. Authenticated by Dr. Chago Oswald on 04/16/17 at 17:38. Problem Qualifiers (1) Dementia with behavioral disturbance: Qualified Code: G30.8 - Alzheimer's dementia with behavioral disturbance, unspecified timing of dementia onset Laura Clayton Apr 16, 2017 17:56 Chago Oswald DO Apr 16, 2017 17:57
[2017-04-16 20:49] VITALS: BP 106/66; PULSE 59; RESP 18; TEMP 97.6; O2SAT 93
[2017-04-16] MEDS: QUEtiapine FUMARATE 300 MG TAB PO SCH (21:02)
[2017-04-16] MEDS: TAMSULOSIN HCL 0.4 MG CAP PO SCH (21:03)
[2017-04-16] MEDS: DONEPEZIL HCL 5 MG TAB PO SCH (21:03)
[2017-04-16] MEDS: PRAVASTATIN SOD 20 MG TAB PO SCH (21:03)
[2017-04-17 04:41] VITALS: BP 92/54; PULSE 61; RESP 18; TEMP 98; O2SAT 99
[2017-04-17 06:08] VITALS: BP 92/59; PULSE 61; RESP 18; TEMP 98; O2SAT 99
[2017-04-17] MEDS: CHLORHEXIDINE GLUCONATE 4% SOLN 120 ML BTL TOPICAL SCH (09:00)
[2017-04-17] MEDS: ATENOLOL 100 MG TAB PO SCH (09:18)
[2017-04-17] MEDS: ASPIRIN EC 81 MG TABEC PO SCH (09:18)
[2017-04-17] MEDS: HALOPERIDOL 1 MG TAB PO SCH ×2 (09:18→16:23)
[2017-04-17] MEDS: MEMANTINE HCL 10 MG TAB PO SCH ×2 (09:18→21:55)
[2017-04-17] MEDS: PANTOPRAZOLE SOD 20 MG DELAYED RELEASE TAB PO SCH (09:18)
[2017-04-17] MEDS: BACITRACIN TOP OINT 15 GM TUBE TOPICAL SCH (09:19)
[2017-04-17 10:28] VITALS: BP 113/65; PULSE 59
--- NOTE | 2017-04-17 12:00 | HHI.PYPN ---
Subjective Remarks Patient seen in day room with nurse Yue and medical student Yunior. Patient calm cooperative eating lunch independently. He continues diffusely confused though no behavioral problems, compliant medications. Review of Systems Except as stated in HPI: all other systems reviewed are Neg Objective Alert: Yes [place]: Person (only) Mood: Agitated Affect: Other (labile) Memory Intact: Comment (poor/ Impaired) Hallucinations: Other (does not appear to be responding tointernal s timuli) Delusions: No Delusion Type: Other (somewhat vigilant) Suicidal: Ideation (unable to determine) Homicidal: Ideation (unable to determine) Insight/Judgment Poor Vitals/IOs Vital Signs Date Time Temp Pulse Resp B/P Pulse Ox O2 Delivery O2 Flow Rate FiO2 04/17/17 10:28 59 113/65 04/17/17 06:08 98.0 18 99 Intake and Output 04/16/17 04/16/17 04/17/17 08:00 16:00 00:00 Intake Total 240 ml 360 ml 1200 ml Balance 240 ml 360 ml 1200 ml Assessment & Plan Problem List: (1) Dementia with behavioral disturbance ICD Code: F03.91 Assessment & Plan Estimated LOS: days patient continues diffusely confused disoriented though no significant behavioral problems. Compliant medications. For now continue treatment Justification for Cont. Inpt. At this time patient will decompensate if placed in a lower level of care Discharge Planning To be determined Request HC Surrog/Guard Advoc?: Yes Problem Qualifiers (1) Dementia with behavioral disturbance: Qualified Code: G30.8 - Alzheimer's dementia with behavioral disturbance, unspecified timing of dementia onset Peter Fang MD Apr 17, 2017 12:00
--- NOTE | 2017-04-17 14:59 | HHI.PR ---
Subjective Remarks Follow-up visit lesions, insect bites, hyperlipidemia. Patient seen and examined today. Patient is very calm and able to respond to all questions and commands. Periods of confusion. Otherwise, states that lesions are not itchy. Denies pain and discomfort. Denies SOB/ dyspnea. Denies chest pain, palpitations, headaches, dizziness. Denies fevers, chills, n/v/d. Objective Vitals Vital Signs Date Time Temp Pulse Resp B/P Pulse Ox O2 Delivery O2 Flow Rate FiO2 04/17/17 10:28 59 113/65 04/17/17 06:08 98.0 61 18 92/59 99 04/17/17 04:41 98.0 61 18 92/54 99 04/16/17 20:49 97.6 59 18 106/66 93 I/O 04/16/17 04/16/17 04/16/17 04/17/17 04/17/17 04/17/17 07:00 15:00 23:00 07:00 15:00 23:00 Intake Total 240 ml 360 ml 1200 ml 2360 ml Balance 240 ml 360 ml 1200 ml 2360 ml Intake Oral 240 ml 360 ml 240 ml 2360 ml Oral Supplement 480 ml Tube Feeding 480 ml # Voids 1 1 2 Imaging Last Impressions Head CT 04/09/171732 Signed Impressions: Service Date/Time: March 18:11 - CONCLUSION: Negative noncontrast CT. Chago Jara MD Chest X-Ray 04/09/171732 Signed Impressions: Service Date/Time: March 17:42 - CONCLUSION: No acute disease. Chago Jara MD Objective Remarks GENERAL: This is a well-nourished, well-developed patient, in no apparent distress. SKIN: Cool and dry. Left arm lesion open wound, positive erythema, no edema, no drainage noted. Bilateral thigh area open lesion, positive erythema, no edema, no drainage noted. HEAD: Atraumatic. Normocephalic. No temporal or scalp tenderness. EYES: Pupils equal round and reactive. Extraocular motions intact. No scleral icterus. No injection or drainage. ENT: Nose without bleeding. Throat without erythema. Uvula midline. Airway patent. NECK: Trachea midline. No JVD or lymphadenopathy. Supple, nontender, no meningeal signs. CARDIOVASCULAR: Regular rate and rhythm without murmurs, gallops, or rubs. RESPIRATORY: Clear to auscultation. Breath sounds equal bilaterally. No wheezes , rales, or rhonchi. GASTROINTESTINAL: Abdomen soft, non-tender, nondistended. MUSCULOSKELETAL: Extremities without clubbing, cyanosis, or edema. Left arm tremors. NEUROLOGICAL: Awake and alert. Oriented to self. Motor and sensory grossly within normal limits. Normal speech. A/P Problem List: (1) History of dementia ICD Code: Z86.59 Status: Acute (2) Dementia with behavioral disturbance ICD Code: F03.91 Status: Acute (3) Mild dehydration ICD Code: E86.0 Status: Acute (4) Insect bite ICD Code: W57.XXXA Status: Acute Assessment and Plan Patient is a 76-year-old male with primary medical history of hyperlipidemia, dementia, Alzheimer's with aggressive behavior who came in under Thompson act from [facility] secondary to being violent towards fellow patients and staff. He is now admitted to inpatient psychiatry unit for further evaluation. Consulted for medical management, and insect bites. Dementia, Alzheimer's disease with agitation and aggressive behavior - Managed by psychiatry team Skin lesions - Chlorhexidine wash daily - Apply bacitracin to the area covered with dry dressing - Benadryl for urticaria/pruritus - Wound care Hyperlipidemia - Continue pravastatin - Check lipid panel in 3 months as an outpatient Left arm tremors, possible generalized tremors - On atenolol 100 mg daily, will decrease dose Atenol 50mg daily with parameters BP decreased with higher dose DVT prop ambulatory Full code Discussed with patient, nursing, Dr. Darek Chris from Hospitalist standpoint. We will sign off. Reconsult as needed. Problem Qualifiers (1) Dementia with behavioral disturbance: Qualified Code: G30.8 - Alzheimer's dementia with behavioral disturbance, unspecified timing of dementia onset Laura Clayton Apr 17, 2017 14:59
[2017-04-17 17:53] VITALS: BP 118/65; PULSE 54; RESP 16; TEMP 97.7; O2SAT 97
[2017-04-17] MEDS: TAMSULOSIN HCL 0.4 MG CAP PO SCH (21:55)
[2017-04-17] MEDS: PRAVASTATIN SOD 20 MG TAB PO SCH (21:56)
[2017-04-17] MEDS: DONEPEZIL HCL 5 MG TAB PO SCH (21:56)
[2017-04-17] MEDS: QUEtiapine FUMARATE 300 MG TAB PO SCH (21:56)
[2017-04-18 05:54] VITALS: BP 144/75; PULSE 64; RESP 18; TEMP 98.3; O2SAT 94
[2017-04-18] MEDS: MEMANTINE HCL 10 MG TAB PO SCH ×2 (09:00→20:19)
[2017-04-18] MEDS: CHLORHEXIDINE GLUCONATE 4% SOLN 120 ML BTL TOPICAL SCH (09:00)
[2017-04-18] MEDS: ATENOLOL 50 MG TAB PO SCH (09:55)
[2017-04-18] MEDS: BACITRACIN TOP OINT 15 GM TUBE TOPICAL SCH (09:55)
[2017-04-18] MEDS: ASPIRIN EC 81 MG TABEC PO SCH (09:56)
[2017-04-18] MEDS: HALOPERIDOL 1 MG TAB PO SCH ×2 (09:56→15:30)
[2017-04-18] MEDS: PANTOPRAZOLE SOD 20 MG DELAYED RELEASE TAB PO SCH (09:56)
--- NOTE | 2017-04-18 12:19 | HHI.PYPN ---
Subjective Remarks Patient was seen and case discussed with nursing. Patient is friendly and cooperative during the exam. Alert and oriented 1. Says he hears a dog barking nursing confirms there are no dogs the premises or outside. Is compliant with his medications. There is a resting left hand tremor. Denies suicidal ideation intent or plan Objective Alert: Yes [place]: Person (only) Mood: Calm Affect: Blunted Memory Intact: Comment (poor/ Impaired) Hallucinations: Auditory (dog barking) Delusions: No Delusion Type: Other (somewhat vigilant) Suicidal: Ideation (unable to determine) Homicidal: Ideation (unable to determine) Insight/Judgment Poor Vitals/IOs Vital Signs Date Time Temp Pulse Resp B/P Pulse Ox O2 Delivery O2 Flow Rate FiO2 04/18/17 05:54 98.3 64 18 144/75 94 Intake and Output 04/17/17 04/17/17 04/18/17 08:00 16:00 00:00 Intake Total 2360 ml 840 ml Balance 2360 ml 840 ml Assessment & Plan Problem List: (1) Dementia with behavioral disturbance ICD Code: F03.91 Assessment & Plan Continue current treatment plan Justification for Cont. Inpt. Patient will decompensate in a less restrictive setting Request HC Surrog/Guard Advoc?: Yes Problem Qualifiers (1) Dementia with behavioral disturbance: Qualified Code: G30.8 - Alzheimer's dementia with behavioral disturbance, unspecified timing of dementia onset Remi Brandt DO Apr 18, 2017 12:19
[2017-04-18 18:27] VITALS: BP 131/68; PULSE 58; RESP 17; TEMP 97.9; O2SAT 98
[2017-04-18] MEDS: DONEPEZIL HCL 5 MG TAB PO SCH (20:19)
[2017-04-18] MEDS: PRAVASTATIN SOD 20 MG TAB PO SCH (20:19)
[2017-04-18] MEDS: QUEtiapine FUMARATE 300 MG TAB PO SCH (20:19)
[2017-04-18] MEDS: TAMSULOSIN HCL 0.4 MG CAP PO SCH (20:19)
[2017-04-19] MEDS: LORazepam 1 MG TAB PO PRN (01:11)
[2017-04-19] MEDS ORDERED: LORazepam 2 MG/ML VIAL IM PRN (01:15)
[2017-04-19 06:15] VITALS: BP 114/63; PULSE 63; RESP 18; TEMP 97.8; O2SAT 97
[2017-04-19] MEDS: PANTOPRAZOLE SOD 20 MG DELAYED RELEASE TAB PO SCH (08:38)
[2017-04-19] MEDS: MEMANTINE HCL 10 MG TAB PO SCH ×2 (08:38→21:00)
[2017-04-19] MEDS: HALOPERIDOL 1 MG TAB PO SCH ×2 (08:38→16:20)
[2017-04-19] MEDS: ATENOLOL 50 MG TAB PO SCH (08:38)
[2017-04-19] MEDS: ASPIRIN EC 81 MG TABEC PO SCH (08:39)
[2017-04-19] MEDS: BACITRACIN TOP OINT 15 GM TUBE TOPICAL SCH (08:39)
[2017-04-19] MEDS: CHLORHEXIDINE GLUCONATE 4% SOLN 120 ML BTL TOPICAL SCH (08:40)
--- NOTE | 2017-04-19 12:48 | HHI.PYPN ---
Subjective Remarks Patient was seen and case discussed with nursing. Patient is pleasant and cooperative with exam. Per nursing he is restless throughout the day and pacing the halls. For my interview sitting calmly in his chair. Nursing says he only slept 2 hours patient says he slept well. Behaving well on the unit. Compliant with his medications. Denies auditory visual hallucinations Objective Alert: Yes [place]: Person (only) Mood: Calm Affect: Restricted Memory Intact: Comment (poor/ Impaired) Hallucinations: Auditory (dog barking) Delusions: No Delusion Type: Other (somewhat vigilant) Suicidal: Ideation (unable to determine) Homicidal: Ideation (unable to determine) Insight/Judgment Poor Vitals/IOs Vital Signs Date Time Temp Pulse Resp B/P Pulse Ox O2 Delivery O2 Flow Rate FiO2 04/19/17 06:15 97.8 63 18 114/63 97 Intake and Output 04/18/17 04/18/17 04/19/17 08:00 16:00 00:00 Intake Total 480 ml 600 ml Balance 480 ml 600 ml Assessment & Plan Problem List: (1) Dementia with behavioral disturbance ICD Code: F03.91 Assessment & Plan Continue current treatment plan Justification for Cont. Inpt. Patient will decompensate in a less restrictive setting Request HC Surrog/Guard Advoc?: Yes Problem Qualifiers (1) Dementia with behavioral disturbance: Qualified Code: G30.8 - Alzheimer's dementia with behavioral disturbance, unspecified timing of dementia onset Remi Brandt DO Apr 19, 2017 12:48
[2017-04-19 18:18] VITALS: BP 109/73; PULSE 55; RESP 16; TEMP 97.9; O2SAT 99
[2017-04-19] MEDS: TAMSULOSIN HCL 0.4 MG CAP PO SCH (21:00)
[2017-04-19] MEDS: PRAVASTATIN SOD 20 MG TAB PO SCH (21:00)
[2017-04-19] MEDS: DONEPEZIL HCL 5 MG TAB PO SCH (21:00)
[2017-04-19] MEDS: QUEtiapine FUMARATE 300 MG TAB PO SCH (21:00)
[2017-04-20 05:39] VITALS: BP 129/79; PULSE 57; RESP 16; TEMP 96.8; O2SAT 96
[2017-04-20] MEDS: HALOPERIDOL 1 MG TAB PO SCH ×2 (08:00→16:00)
--- NOTE | 2017-04-20 08:11 | HHI.PYPN ---
Subjective Remarks Patient seen in day room with nurse Serenity, chart reviewed, patient compliant medications. Patient continues calm pleasant, pleasantly confused. No behavioral problems. For now continue treatment Review of Systems Except as stated in HPI: all other systems reviewed are Neg Objective Alert: Yes [place]: Person (only) Mood: Calm Affect: Restricted Memory Intact: Comment (poor/ Impaired) Hallucinations: Auditory (dog barking) Delusions: No Delusion Type: Other (somewhat vigilant) Suicidal: Ideation (unable to determine) Homicidal: Ideation (unable to determine) Insight/Judgment Very poor Vitals/IOs Vital Signs Date Time Temp Pulse Resp B/P Pulse Ox O2 Delivery O2 Flow Rate FiO2 04/20/17 05:39 96.8 57 16 129/79 96 Intake and Output 04/19/17 04/19/17 04/20/17 08:00 16:00 00:00 Intake Total 0 ml 600 ml Balance 0 ml 600 ml Assessment & Plan Problem List: (1) Dementia with behavioral disturbance ICD Code: F03.91 Assessment & Plan Estimated LOS: days patient continues confused and demented, though no behavioral problems, compliant medications. Justification for Cont. Inpt. At this time patient will decompensate placed in a lower level of care Discharge Planning To be determined Request HC Surrog/Guard Advoc?: Yes Problem Qualifiers (1) Dementia with behavioral disturbance: Qualified Code: G30.8 - Alzheimer's dementia with behavioral disturbance, unspecified timing of dementia onset Peter Fang MD Apr 20, 2017 08:11
[2017-04-20] MEDS: ATENOLOL 50 MG TAB PO SCH (09:00)
[2017-04-20] MEDS: PANTOPRAZOLE SOD 20 MG DELAYED RELEASE TAB PO SCH (09:00)
[2017-04-20] MEDS: CHLORHEXIDINE GLUCONATE 4% SOLN 120 ML BTL TOPICAL SCH (09:00)
[2017-04-20] MEDS: MEMANTINE HCL 10 MG TAB PO SCH ×2 (09:00→20:32)
[2017-04-20] MEDS: ASPIRIN EC 81 MG TABEC PO SCH (09:00)
[2017-04-20] MEDS: BACITRACIN TOP OINT 15 GM TUBE TOPICAL SCH (09:00)
--- NOTE | 2017-04-20 11:43 | PD.TTN ---
Present for Treatment Team Treatment Team Staff: Provider, Psych Therapist, Occupational Therapist Patient Problems 1. Discharge planning 2. Medication compliance 3. Knowledge deficit 4. Lack of coping skills Progress Toward Goals Provider Input: Medication adjustment taking Haldol, sleeping with no behavior Nurse Input: Patient is pleasantly confused per nurse no behavioral, taking medication and eating meals Psych Therapist Input: Counselor will call [place] to assess for return; patient is pleasantly confused per nurse no behavioral. Occupational Therapist Input: Patient lacks insight or ability to appropriately participate with on and off patient activities. Documentation Scribe: Rosalinda Pleitez Rosalinda Mckay [facility] Apr 20, 2017 11:43
[2017-04-20 18:00] VITALS: BP 130/66; PULSE 64; RESP 18; TEMP 97.8; O2SAT 97
[2017-04-20] MEDS: DONEPEZIL HCL 5 MG TAB PO SCH (20:31)
[2017-04-20] MEDS: PRAVASTATIN SOD 20 MG TAB PO SCH (20:32)
[2017-04-20] MEDS: TAMSULOSIN HCL 0.4 MG CAP PO SCH (20:32)
[2017-04-20] MEDS: QUEtiapine FUMARATE 300 MG TAB PO SCH (20:32)
[2017-04-21 05:48] VITALS: BP 138/70; PULSE 62; RESP 17; O2SAT 98
--- NOTE | 2017-04-21 08:05 | HHI.PYPN ---
Subjective Remarks Patient seen in the day room with nurse Mark, and medical student Yunior, chart reviewed, patient compliant medications. Patient continues calm and pleasant, pleasantly confused. There are no behavioral problems. For now continue treatment Review of Systems Except as stated in HPI: all other systems reviewed are Neg Objective Alert: Yes [place]: Person (only) Mood: Calm Affect: Restricted Memory Intact: Comment (poor/ Impaired) Hallucinations: Auditory (dog barking) Delusions: No Delusion Type: Other (somewhat vigilant) Suicidal: Ideation (unable to determine) Homicidal: Ideation (unable to determine) Insight/Judgment Very poor Vitals/IOs Vital Signs Date Time Temp Pulse Resp B/P Pulse Ox O2 Delivery O2 Flow Rate FiO2 04/21/17 05:48 62 17 138/70 98 04/20/17 18:00 97.8 Intake and Output 04/20/17 04/20/17 04/21/17 08:00 16:00 00:00 Intake Total 720 ml 2520 ml Balance 720 ml 2520 ml Assessment & Plan Problem List: (1) Dementia with behavioral disturbance ICD Code: F03.91 Assessment & Plan Estimated LOS: days patient continues confused and demented, but no behavioral problems. Compliant medications. For now continue treatment Justification for Cont. Inpt. At this time patient will decompensate if placed at a lower level of care Discharge Planning To be determined Request HC Surrog/Guard Advoc?: Yes Problem Qualifiers (1) Dementia with behavioral disturbance: Qualified Code: G30.8 - Alzheimer's dementia with behavioral disturbance, unspecified timing of dementia onset Peter Fang MD Apr 21, 2017 08:05
[2017-04-21] MEDS: ASPIRIN EC 81 MG TABEC PO SCH (08:33)
[2017-04-21] MEDS: MEMANTINE HCL 10 MG TAB PO SCH ×2 (08:33→21:15)
[2017-04-21] MEDS: PANTOPRAZOLE SOD 20 MG DELAYED RELEASE TAB PO SCH (08:33)
[2017-04-21] MEDS: HALOPERIDOL 1 MG TAB PO SCH ×2 (08:33→17:13)
[2017-04-21] MEDS: CHLORHEXIDINE GLUCONATE 4% SOLN 120 ML BTL TOPICAL SCH (08:35)
[2017-04-21] MEDS: ATENOLOL 50 MG TAB PO SCH (08:35)
[2017-04-21] MEDS: BACITRACIN TOP OINT 15 GM TUBE TOPICAL SCH (08:35)
[2017-04-21 18:37] VITALS: BP 123/58; PULSE 50; RESP 16; O2SAT 98
[2017-04-21] MEDS: QUEtiapine FUMARATE 300 MG TAB PO SCH (21:14)
[2017-04-21] MEDS: DONEPEZIL HCL 5 MG TAB PO SCH (21:14)
[2017-04-21] MEDS: TAMSULOSIN HCL 0.4 MG CAP PO SCH (21:15)
[2017-04-21] MEDS: PRAVASTATIN SOD 20 MG TAB PO SCH (21:15)
[2017-04-22 04:52] VITALS: BP 118/79; PULSE 79; RESP 18; TEMP 97.6; O2SAT 95
[2017-04-22] MEDS: HALOPERIDOL 1 MG TAB PO SCH ×2 (08:00→16:00)
[2017-04-22] MEDS: ASPIRIN EC 81 MG TABEC PO SCH (09:00)
[2017-04-22] MEDS: BACITRACIN TOP OINT 15 GM TUBE TOPICAL SCH (09:00)
[2017-04-22] MEDS: MEMANTINE HCL 10 MG TAB PO SCH ×2 (09:00→22:34)
[2017-04-22] MEDS: CHLORHEXIDINE GLUCONATE 4% SOLN 120 ML BTL TOPICAL SCH (09:00)
[2017-04-22] MEDS: ATENOLOL 50 MG TAB PO SCH (09:00)
[2017-04-22] MEDS: PANTOPRAZOLE SOD 20 MG DELAYED RELEASE TAB PO SCH (09:00)
--- NOTE | 2017-04-22 10:09 | HHI.PYPN ---
Subjective Remarks Patient seen in his room with nurse Aleshia and counselor Serena. Chart reviewed. Patient overall remains quite calm pleasant, pleasantly confused. Did discuss this with counselor feeling and appears ready for a trial and placement again. However when I discussed this with the patient, the possibility of returning to his shelter he became quite angry refusing to leave here saying that this is his home and this is where he wants to live. This showing a remarkable switch in his affect and his mood. For now continue treatment no change since she is shown no other behavioral issues. Need to consider possibility of transfer and we'll also work with the family related to this Review of Systems Except as stated in HPI: all other systems reviewed are Neg Objective Alert: Yes [place]: Person (only) Mood: Calm Affect: Restricted Memory Intact: Comment (poor/ Impaired) Hallucinations: Auditory (dog barking) Delusions: No Delusion Type: Other (somewhat vigilant) Suicidal: Ideation (unable to determine) Homicidal: Ideation (unable to determine) Insight/Judgment Very poor Vitals/IOs Vital Signs Date Time Temp Pulse Resp B/P Pulse Ox O2 Delivery O2 Flow Rate FiO2 04/22/17 04:52 97.6 79 18 118/79 95 Intake and Output 04/21/17 04/21/17 04/22/17 08:00 16:00 00:00 Intake Total 360 ml 1560 ml Balance 360 ml 1560 ml Assessment & Plan Problem List: (1) Dementia with behavioral disturbance ICD Code: F03.91 Assessment & Plan Estimated LOS: days patient continues to mentate confused, thus pleasant behavior changed dramatically when we are talking about discharge and possible placement back in his shelter Justification for Cont. Inpt. At this time patient will decompensate placed on the lower level of care Discharge Planning To be determined Request HC Surrog/Guard Advoc?: Yes Problem Qualifiers (1) Dementia with behavioral disturbance: Qualified Code: G30.8 - Alzheimer's dementia with behavioral disturbance, unspecified timing of dementia onset Peter Fang MD Apr 22, 2017 10:09
[2017-04-22 18:00] VITALS: BP 105/63; PULSE 54; RESP 19; TEMP 97.5; O2SAT 98
[2017-04-22] MEDS: QUEtiapine FUMARATE 300 MG TAB PO SCH (22:34)
[2017-04-22] MEDS: DONEPEZIL HCL 5 MG TAB PO SCH (22:34)
[2017-04-22] MEDS: TAMSULOSIN HCL 0.4 MG CAP PO SCH (22:35)
[2017-04-22] MEDS: PRAVASTATIN SOD 20 MG TAB PO SCH (22:35)
[2017-04-23 06:23] VITALS: BP 111/59; PULSE 60; RESP 18; TEMP 97.8; O2SAT 96
[2017-04-23] MEDS: CHLORHEXIDINE GLUCONATE 4% SOLN 120 ML BTL TOPICAL SCH (09:00)
[2017-04-23] MEDS: PANTOPRAZOLE SOD 20 MG DELAYED RELEASE TAB PO SCH (09:04)
[2017-04-23] MEDS: MEMANTINE HCL 10 MG TAB PO SCH ×2 (09:05→20:55)
[2017-04-23] MEDS: HALOPERIDOL 1 MG TAB PO SCH ×2 (09:05→16:00)
[2017-04-23] MEDS: ASPIRIN EC 81 MG TABEC PO SCH (09:05)
[2017-04-23] MEDS: ATENOLOL 50 MG TAB PO SCH (09:05)
[2017-04-23] MEDS: BACITRACIN TOP OINT 15 GM TUBE TOPICAL SCH (09:14)
--- NOTE | 2017-04-23 10:11 | HHI.PYPN ---
Subjective Remarks Patient seen today in his room with nurse Isael and medical student Yunior, chart review, patient compliant medications. Continues diffusely confused and disorganized though is more pleasant today than yesterday appears more willing to return his custodial when the proposal is made softer and more generalized. For now continue treatment Review of Systems Except as stated in HPI: all other systems reviewed are Neg Objective Alert: Yes [place]: Person (only) Mood: Calm Affect: Restricted Memory Intact: Comment (poor/ Impaired) Hallucinations: Auditory (dog barking) Delusions: No Delusion Type: Other (somewhat vigilant) Suicidal: Ideation (unable to determine) Homicidal: Ideation (unable to determine) Insight/Judgment Poor Vitals/IOs Vital Signs Date Time Temp Pulse Resp B/P Pulse Ox O2 Delivery O2 Flow Rate FiO2 04/23/17 06:23 97.8 60 18 111/59 96 Intake and Output 04/22/17 04/22/17 04/23/17 08:00 16:00 00:00 Intake Total 480 ml 120 ml Balance 480 ml 120 ml Assessment & Plan Problem List: (1) Dementia with behavioral disturbance ICD Code: F03.91 Assessment & Plan Estimated LOS: days patient continues demented confused but was calmer and more pleasant today. Compliant medications. For now continue treatment Justification for Cont. Inpt. At this time patient will decompensate if placed in a lower level of care Discharge Planning To be determined Request HC Surrog/Guard Advoc?: Yes Problem Qualifiers (1) Dementia with behavioral disturbance: Qualified Code: G30.8 - Alzheimer's dementia with behavioral disturbance, unspecified timing of dementia onset Peter Fang MD Apr 23, 2017 10:11
[2017-04-23 19:33] VITALS: BP 110/62; PULSE 62; RESP 18; TEMP 98; O2SAT 96
[2017-04-23] MEDS: PRAVASTATIN SOD 20 MG TAB PO SCH (20:55)
[2017-04-23] MEDS: TAMSULOSIN HCL 0.4 MG CAP PO SCH (20:55)
[2017-04-23] MEDS: DONEPEZIL HCL 5 MG TAB PO SCH (20:55)
[2017-04-23] MEDS: QUEtiapine FUMARATE 300 MG TAB PO SCH (20:55)
[2017-04-24 04:00] VITALS: BP 122/70; PULSE 75; RESP 18; TEMP 98; O2SAT 96
[2017-04-24] MEDS: LORazepam 1 MG TAB PO PRN (05:11)
[2017-04-24] MEDS: ASPIRIN EC 81 MG TABEC PO SCH (08:21)
[2017-04-24] MEDS: HALOPERIDOL 1 MG TAB PO SCH ×2 (08:21→16:00)
[2017-04-24] MEDS: ATENOLOL 50 MG TAB PO SCH (08:21)
[2017-04-24] MEDS: PANTOPRAZOLE SOD 20 MG DELAYED RELEASE TAB PO SCH (08:21)
[2017-04-24] MEDS: CHLORHEXIDINE GLUCONATE 4% SOLN 120 ML BTL TOPICAL SCH (08:22)
[2017-04-24] MEDS: BACITRACIN TOP OINT 15 GM TUBE TOPICAL SCH (08:22)
[2017-04-24] MEDS: MEMANTINE HCL 10 MG TAB PO SCH ×2 (08:22→20:55)
--- NOTE | 2017-04-24 15:59 | HHI.PYPN ---
Subjective Remarks Patient seen in the day room with nurse javad, chart reviewed, patient compliant medications. Patient continues confused though pleasant. Continue somewhat ambiguous about placement issues for now continue treatment Review of Systems Except as stated in HPI: all other systems reviewed are Neg Objective Alert: Yes [place]: Person (only) Mood: Calm Affect: Restricted Memory Intact: Comment (poor/ Impaired) Hallucinations: Auditory (dog barking) Delusions: No Delusion Type: Other (somewhat vigilant) Suicidal: Ideation (unable to determine) Homicidal: Ideation (unable to determine) Insight/Judgment Poor Vitals/IOs Vital Signs Date Time Temp Pulse Resp B/P Pulse Ox O2 Delivery O2 Flow Rate FiO2 04/24/17 04:00 98.0 75 18 122/70 96 Intake and Output 04/23/17 04/23/17 04/24/17 08:00 16:00 00:00 Intake Total 240 ml Balance 240 ml Assessment & Plan Problem List: (1) Dementia with behavioral disturbance ICD Code: F03.91 Assessment & Plan Estimated LOS: days continues demented confused but no behavior problem at this time Justification for Cont. Inpt. At this time patient decompensate the placed in a lower level of care Discharge Planning To be determined Request HC Surrog/Guard Advoc?: Yes Problem Qualifiers (1) Dementia with behavioral disturbance: Qualified Code: G30.8 - Alzheimer's dementia with behavioral disturbance, unspecified timing of dementia onset Peter Fang MD Apr 24, 2017 15:59
[2017-04-24 16:27] VITALS: BP 110/60; PULSE 57; RESP 18; TEMP 97.4; O2SAT 95
[2017-04-24] MEDS: DONEPEZIL HCL 5 MG TAB PO SCH (20:55)
[2017-04-24] MEDS: QUEtiapine FUMARATE 300 MG TAB PO SCH (20:55)
[2017-04-24] MEDS: PRAVASTATIN SOD 20 MG TAB PO SCH (20:55)
[2017-04-24] MEDS: TAMSULOSIN HCL 0.4 MG CAP PO SCH (20:55)
[2017-04-25 04:00] VITALS: BP 108/52; PULSE 78; RESP 15; TEMP 98.4; O2SAT 96
[2017-04-25] MEDS: HALOPERIDOL 1 MG TAB PO SCH ×2 (08:00→16:00)
[2017-04-25] MEDS: CHLORHEXIDINE GLUCONATE 4% SOLN 120 ML BTL TOPICAL SCH (09:00)
[2017-04-25] MEDS: ASPIRIN EC 81 MG TABEC PO SCH (09:00)
[2017-04-25] MEDS: PANTOPRAZOLE SOD 20 MG DELAYED RELEASE TAB PO SCH (09:00)
[2017-04-25] MEDS: ATENOLOL 50 MG TAB PO SCH (09:00)
[2017-04-25] MEDS: BACITRACIN TOP OINT 15 GM TUBE TOPICAL SCH (09:00)
[2017-04-25] MEDS: MEMANTINE HCL 10 MG TAB PO SCH ×2 (09:00→21:34)
[2017-04-25 18:00] VITALS: BP 105/52; PULSE 100; RESP 18; TEMP 98.8; O2SAT 98
--- NOTE | 2017-04-25 18:27 | HHI.PYPN ---
Subjective Remarks Pt seen and discussed with staff. He has been calm and cooperative with care. No behavioral problems on unit. Compliant with medications. Objective Alert: Yes [place]: Person Mood: Calm Affect: Restricted Memory Intact: Comment (poor) Hallucinations: Other (none) Delusions: No Delusion Type: Other (none) Suicidal: Ideation (unable to determine) Homicidal: Ideation (unable to determine) Insight/Judgment poor Vitals/IOs Vital Signs Date Time Temp Pulse Resp B/P Pulse Ox O2 Delivery O2 Flow Rate FiO2 04/25/17 04:00 98.4 78 15 108/52 96 Intake and Output 04/24/17 04/24/17 04/25/17 08:00 16:00 00:00 Intake Total 360 ml 240 ml 600 ml Balance 360 ml 240 ml 600 ml Assessment & Plan Problem List: (1) Dementia with behavioral disturbance ICD Code: F03.91 Assessment & Plan Continue current tx plan. Estimated LOS: days Justification for Cont. Inpt. risk of decompensation Request HC Surrog/Guard Advoc?: Yes Problem Qualifiers (1) Dementia with behavioral disturbance: Qualified Code: G30.8 - Alzheimer's dementia with behavioral disturbance, unspecified timing of dementia onset Jennifer Durham MD Apr 25, 2017 18:27
[2017-04-25] MEDS: DONEPEZIL HCL 5 MG TAB PO SCH (21:34)
[2017-04-25] MEDS: PRAVASTATIN SOD 20 MG TAB PO SCH (21:34)
[2017-04-25] MEDS: TAMSULOSIN HCL 0.4 MG CAP PO SCH (21:34)
[2017-04-25] MEDS: QUEtiapine FUMARATE 300 MG TAB PO SCH (21:34)
[2017-04-26 06:06] VITALS: BP 94/55; PULSE 62; RESP 18; TEMP 97.2; O2SAT 96
[2017-04-26] MEDS: HALOPERIDOL 1 MG TAB PO SCH ×2 (08:00→16:00)
[2017-04-26] MEDS: MEMANTINE HCL 10 MG TAB PO SCH ×2 (09:00→21:00)
[2017-04-26] MEDS: ASPIRIN EC 81 MG TABEC PO SCH (09:00)
[2017-04-26] MEDS: PANTOPRAZOLE SOD 20 MG DELAYED RELEASE TAB PO SCH (09:00)
[2017-04-26] MEDS: CHLORHEXIDINE GLUCONATE 4% SOLN 120 ML BTL TOPICAL SCH (09:00)
[2017-04-26] MEDS: BACITRACIN TOP OINT 15 GM TUBE TOPICAL SCH (09:00)
[2017-04-26] MEDS: ATENOLOL 50 MG TAB PO SCH (09:00)
--- NOTE | 2017-04-26 14:16 | HHI.PYPN ---
Subjective Remarks Pt seen and discussed with staff. He is cooperative with care and compliant with medications. He has been coming out of room and spending time in day room. No behavioral disturbances on unit. Objective Alert: Yes [place]: Person Mood: Calm Affect: Restricted Memory Intact: Comment (poor) Hallucinations: Other (none) Delusions: No Delusion Type: Other (none) Suicidal: Ideation (unable to determine) Homicidal: Ideation (unable to determine) Insight/Judgment poor Vitals/IOs Vital Signs Date Time Temp Pulse Resp B/P Pulse Ox O2 Delivery O2 Flow Rate FiO2 04/26/17 06:06 97.2 62 18 94/55 96 Intake and Output 04/25/17 04/25/17 04/26/17 08:00 16:00 00:00 Intake Total 480 ml 240 ml Balance 480 ml 240 ml Assessment & Plan Problem List: (1) Dementia with behavioral disturbance ICD Code: F03.91 Assessment & Plan Continue current tx plan. Estimated LOS: days Justification for Cont. Inpt. risk of decompensation Request HC Surrog/Guard Advoc?: Yes Problem Qualifiers (1) Dementia with behavioral disturbance: Qualified Code: G30.8 - Alzheimer's dementia with behavioral disturbance, unspecified timing of dementia onset Jennifer Durham MD Apr 26, 2017 14:16
[2017-04-26] MEDS: TAMSULOSIN HCL 0.4 MG CAP PO SCH (21:00)
[2017-04-26] MEDS: DONEPEZIL HCL 5 MG TAB PO SCH (21:00)
[2017-04-26] MEDS: QUEtiapine FUMARATE 300 MG TAB PO SCH (21:00)
[2017-04-26] MEDS: PRAVASTATIN SOD 20 MG TAB PO SCH (21:01)
[2017-04-27 06:25] VITALS: BP 92/50; PULSE 91; RESP 16; TEMP 97.3; O2SAT 94
[2017-04-27] MEDS: ATENOLOL 50 MG TAB PO SCH (07:24)
[2017-04-27] MEDS: BACITRACIN TOP OINT 15 GM TUBE TOPICAL SCH (08:11)
[2017-04-27] MEDS: PANTOPRAZOLE SOD 20 MG DELAYED RELEASE TAB PO SCH (08:11)
[2017-04-27] MEDS: HALOPERIDOL 1 MG TAB PO SCH ×2 (08:11→15:10)
[2017-04-27] MEDS: MEMANTINE HCL 10 MG TAB PO SCH ×2 (08:11→21:37)
[2017-04-27] MEDS: ASPIRIN EC 81 MG TABEC PO SCH (08:11)
--- NOTE | 2017-04-27 12:15 | PD.TTN ---
Present for Treatment Team Treatment Team Staff: Provider (Dr. Fang), Psych Therapist ([facility] Ancillary Staff (Rec. [facility]) Patient Problems 1. Discharge planning 2. Medication compliance 3. Knowledge deficit 4. Lack of coping skills Progress Toward Goals Provider Input: Dr. Fang reported the patient will be discharged today to [facility]. Psych Therapist Input: Counselor reported the patient remains compliant withmedications and in good behavioral control. Patient appears to be rather comfortable on the unit as evidenced by his desire to remain on the unit. Counselor spoke to Amelie, from [facility], , who reported she will evaluate patient's medical notes and accept the patient back today. Ancillary Staff Input: Jd jj the patient is not attending recreational therapy groups. Documentation Scribe: [facility] Date Resolved: Apr 27, 2017 [facility] Apr 27, 2017 12:15
[2017-04-27] MEDS ORDERED: ATEN50TA PO (13:47)
[2017-04-27] MEDS ORDERED: PANT20 PO (13:47)
[2017-04-27] MEDS ORDERED: HALO1TAB PO (13:47)
[2017-04-27] MEDS ORDERED: ASPI-99 PO (13:47)
[2017-04-27] MEDS ORDERED: TAMS5CAP PO (13:47)
[2017-04-27] MEDS ORDERED: BACI500O2 TOPICAL (13:47)
[2017-04-27] MEDS ORDERED: PRAV20TA PO (13:47)
[2017-04-27] MEDS ORDERED: NAME10TA PO (13:47)
[2017-04-27] MEDS ORDERED: ARIC5TAB2 PO (13:47)
[2017-04-27] MEDS ORDERED: QUET1TAB10 PO (13:47)
--- NOTE | 2017-04-27 13:54 | HHI.DS ---
Psychiatry Discharge Summary Inpatient Psychiatric care?: Yes Advance Directive: No Mental Health AdvanceDirective: No Health Care Proxy: Yes Admission Admission Date Apr 10, 2017 at 11:33 Admission Diagnosis: (1) Dementia with behavioral disturbance ICD Code: F03.91 Brief History Pt seen and discussed wi staff. Chart reviewed. Pt is a 76 YOWM with a hx of dementia who was admitted to [facility] under a BA due to aggressive behavior at the longterm that he resides. Staff state that pt required two ETOs since admission due to aggression and dangerous behavior. He is now on a 1:1 for safety. He stated to the RN that his father was talking to him. Staff state that he wanders and exit seeks and is impulsive, but has been cooperative with medications. Pt is pleasant during interview. He is oriented to self only. He reports year as 1971 and the POTUS as "Eisenhower". Tobacco Use In Past 30 Days: No Tobacco Past 30 Days Alcohol Use: Monthly or Less Hospital Course Patient's initial agitation and aggressive behavior quickly resolved on the unit patient showed cooperation with medication in the adjustment of his medication. Continue can confused and demented. However he was pleasant able to work with the staff with their assistance with ADLs and care. At this time patient reached maximum benefit of this hospitalization. Remains demented though behaviors have improved is a bed available for the patient to pursue center patient to be discharged today Rx times a month the follow-up services through that facility Results Blood Pressure 92 / 50 Vital Signs Date Time Temp Pulse Resp B/P Pulse Ox O2 Delivery O2 Flow Rate FiO2 04/27/17 06:25 97.3 91 16 92/50 94 And toxicology negative Summary of Procedures None done Imaging Last Impressions Head CT 04/09/171732 Signed Impressions: Service Date/Time: March 18:11 - CONCLUSION: Negative noncontrast CT. Chago Jara MD Chest X-Ray 04/09/171732 Signed Impressions: Service Date/Time: March 17:42 - CONCLUSION: No acute disease. Chago Jara MD Pending results at discharge: No Medications # of Antipsychotic meds at D/C: 2 Appropriate >1 Antipsych meds?: 2 (would recommend clinician consider slow taper waiting off the scheduled Haldol as patient's behavior stabilizes) Approp Antipsych med options 1 - Minimum of three failed multiple trials of monotherapy. 2 - Documented plan to taper to monotherapy due to previous use of multiple meds OR cross-taper in progress at D/C. 3 - Documentation of augmentation of Clozapine. 4 - Justification other than those listed in allowable values 1-3, document here : Discharge Discharge Date: Apr 27, 2017 Discharge Diagnosis: (1) Dementia with behavioral disturbance Diagnosis: Principal ICD Code: F03.91 Mental Status Exam at Disch Alert thin slender white male diffusely denies alcohol or spheres. Is normoactive. This is euthymic to somewhat restricted with slight decrease range of motion intensity of affect. Speech is mixed with primary Serbian diffusely confused is quite tangential and circumstantial internal auditory or visual hallucinations loaded no delusions noted and surgery is very poor Pt Condition on Discharge: Stable Discharge Disposition: Discharge to SNF Discharge Instructions Diet Instructions: As Tolerated, No Restrictions Activities you can perform: Regular-No Restrictions Scheduled Appointment: follow-up services through Discharge Time > 30 minutes Discharge/Advance Care Plan Health Problems: (1) Dementia with behavioral disturbance Goals to promote your health * To prevent worsening of your condition and complications * To maintain your health at the optimal level Directions to meet your goals Take your medications as prescribed Follow your dietary instruction Follow activity as directed Keep your appointments as scheduled Take your immunizations and boosters as scheduled If your symptoms worsen call your PCP, if no PCP go to Urgent Care Center or Emergency Room For 24/ questions related to your inpatient stay or results of tests pending at discharge, please contact Dr. Peter Fang at Smoking is Dangerous to Your Health. Avoid second hand smoking Problem Qualifiers (1) Dementia with behavioral disturbance: Qualified Code: G30.8 - Alzheimer's dementia with behavioral disturbance, unspecified timing of dementia onset Peter Fang MD Apr 27, 2017 13:53
[2017-04-27 18:00] VITALS: BP 125/70; PULSE 85; RESP 16; O2SAT 95
[2017-04-27] MEDS: QUEtiapine FUMARATE 300 MG TAB PO SCH (21:37)
[2017-04-27] MEDS: TAMSULOSIN HCL 0.4 MG CAP PO SCH (21:37)
[2017-04-27] MEDS: DONEPEZIL HCL 5 MG TAB PO SCH (21:37)
[2017-04-27] MEDS: PRAVASTATIN SOD 20 MG TAB PO SCH (21:37)
[2017-04-28 06:00] VITALS: BP 130/68; PULSE 65; RESP 18; TEMP 98.3; O2SAT 96
[2017-04-28] MEDS: ATENOLOL 50 MG TAB PO SCH (09:00)
[2017-04-28] MEDS: BACITRACIN TOP OINT 15 GM TUBE TOPICAL SCH (09:00)
[2017-04-28] MEDS: MEMANTINE HCL 10 MG TAB PO SCH ×2 (09:01→22:15)
[2017-04-28] MEDS: PANTOPRAZOLE SOD 20 MG DELAYED RELEASE TAB PO SCH (09:02)
[2017-04-28] MEDS: HALOPERIDOL 1 MG TAB PO SCH ×2 (09:02→16:55)
[2017-04-28] MEDS: ASPIRIN EC 81 MG TABEC PO SCH (09:02)
--- NOTE | 2017-04-28 11:24 | HHI.PYPN ---
Subjective Remarks Patient seen today on unit with nurse Jocelynn, chart reviewed. It appears patient 's placement facility appropriately refuse for except patient because he was prescribed Haldol. Patient discharge was canceled patient today is sitting quietly in the day room he is calm cooperative diffusely confused. No behavioral problems. For now continue treatment. We need to consider alternative medication. This may help with placement issues. The medication, Haldol, appears to be doing quite well with patient Review of Systems Except as stated in HPI: all other systems reviewed are Neg Objective Alert: Yes [place]: Person Mood: Calm Affect: Restricted Memory Intact: Comment (poor) Hallucinations: Other (none) Delusions: No Delusion Type: Other (none) Suicidal: Ideation (unable to determine) Homicidal: Ideation (unable to determine) Insight/Judgment Very poor Vitals/IOs Vital Signs Date Time Temp Pulse Resp B/P Pulse Ox O2 Delivery O2 Flow Rate FiO2 04/28/17 06:00 98.3 65 18 130/68 96 Intake and Output 04/27/17 04/27/17 04/28/17 08:00 16:00 00:00 Intake Total 240 ml 1920 ml 750 ml Balance 240 ml 1920 ml 750 ml Assessment & Plan Problem List: (1) Dementia with behavioral disturbance ICD Code: F03.91 Assessment & Plan Estimated LOS: days we had to cancel discharge due to recent facilities refusal to take a patient who is being prescribed Haldol. Patient coping with these issues well there is no behavior problems she continues pleasantly confused Justification for Cont. Inpt. At this time patient will decompensate then placed in a lower level of care Discharge Planning To be determined Request HC Surrog/Guard Advoc?: Yes Problem Qualifiers (1) Dementia with behavioral disturbance: Qualified Code: G30.8 - Alzheimer's dementia with behavioral disturbance, unspecified timing of dementia onset Peter Fang MD Apr 28, 2017 11:24
[2017-04-28 16:07] VITALS: BP 130/58; PULSE 51; RESP 18; TEMP 96.6; O2SAT 96
[2017-04-28] MEDS: TAMSULOSIN HCL 0.4 MG CAP PO SCH (22:15)
[2017-04-28] MEDS: DONEPEZIL HCL 5 MG TAB PO SCH (22:15)
[2017-04-28] MEDS: QUEtiapine FUMARATE 300 MG TAB PO SCH (22:15)
[2017-04-28] MEDS: PRAVASTATIN SOD 20 MG TAB PO SCH (22:15)
[2017-04-29 06:57] VITALS: BP 122/79; PULSE 58; RESP 18; TEMP 97.1; O2SAT 97
[2017-04-29] MEDS: HALOPERIDOL 1 MG TAB PO SCH ×2 (08:00→16:00)
[2017-04-29] MEDS: ATENOLOL 50 MG TAB PO SCH (09:00)
[2017-04-29] MEDS: BACITRACIN TOP OINT 15 GM TUBE TOPICAL SCH (09:00)
[2017-04-29] MEDS: ASPIRIN EC 81 MG TABEC PO SCH (09:00)
[2017-04-29] MEDS: PANTOPRAZOLE SOD 20 MG DELAYED RELEASE TAB PO SCH (09:00)
[2017-04-29] MEDS: MEMANTINE HCL 10 MG TAB PO SCH ×2 (09:00→21:38)
--- NOTE | 2017-04-29 14:47 | HHI.PYPN ---
Subjective Remarks Patient seen in his room with nurse Carmenza, chart reviewed. Patient compliant medication. Patient is pleasantly confused and disoriented though no behavior problems at this time. Patient scheduled for Cicer[facility]s tomorrow placement remains problematic Review of Systems Except as stated in HPI: all other systems reviewed are Neg Objective Alert: Yes [place]: Person Mood: Calm Affect: Restricted Memory Intact: Comment (poor) Hallucinations: Other (none) Delusions: No Delusion Type: Other (none) Suicidal: Ideation (unable to determine) Homicidal: Ideation (unable to determine) Insight/Judgment Very poor Vitals/IOs Vital Signs Date Time Temp Pulse Resp B/P Pulse Ox O2 Delivery O2 Flow Rate FiO2 04/29/17 06:57 97.1 58 18 122/79 97 Intake and Output 04/28/17 04/28/17 04/29/17 08:00 16:00 00:00 Intake Total 360 ml 1710 ml Balance 360 ml 1710 ml Assessment & Plan Problem List: (1) Dementia with behavioral disturbance ICD Code: F03.91 Assessment & Plan Estimated LOS: days patient continues confused demented though most significant behavioral problems at this time patient scheduled for Cicer[facility]s tomorrow Justification for Cont. Inpt. At this time patient decompensate have placed a lower level of care Discharge Planning To be determined Request HC Surrog/Guard Advoc?: Yes Problem Qualifiers (1) Dementia with behavioral disturbance: Qualified Code: G30.8 - Alzheimer's dementia with behavioral disturbance, unspecified timing of dementia onset Peter Fang MD Apr 29, 2017 14:47
[2017-04-29 18:00] VITALS: BP 141/64; PULSE 50; RESP 18; TEMP 97.5; O2SAT 95
[2017-04-29] MEDS: PRAVASTATIN SOD 20 MG TAB PO SCH (21:37)
[2017-04-29] MEDS: TAMSULOSIN HCL 0.4 MG CAP PO SCH (21:38)
[2017-04-29] MEDS: DONEPEZIL HCL 5 MG TAB PO SCH (21:38)
[2017-04-29] MEDS: QUEtiapine FUMARATE 300 MG TAB PO SCH (21:38)
[2017-04-30 06:07] VITALS: BP 111/59; PULSE 54; RESP 16; TEMP 97.3; O2SAT 97
[2017-04-30] MEDS: ATENOLOL 50 MG TAB PO SCH (09:00)
[2017-04-30] MEDS: HALOPERIDOL 1 MG TAB PO SCH (09:03)
[2017-04-30] MEDS: PANTOPRAZOLE SOD 20 MG DELAYED RELEASE TAB PO SCH (09:03)
[2017-04-30] MEDS: ASPIRIN EC 81 MG TABEC PO SCH (09:03)
[2017-04-30] MEDS: MEMANTINE HCL 10 MG TAB PO SCH ×2 (09:03→20:52)
[2017-04-30 09:04] VITALS: BP 92/52; PULSE 109
--- NOTE | 2017-04-30 10:25 | HHI.PYPN ---
Subjective Remarks Patient seen in [place] [address], chart review, patient retained by Log Getter [place], patient continues no significant behavioral problems though also continues diffusely confused and disoriented. Placement remains significantly an issue. For now continue treatment Review of Systems Except as stated in HPI: all other systems reviewed are Neg Objective Alert: Yes [place]: Person Mood: Calm Affect: Restricted Memory Intact: Comment (poor) Hallucinations: Other (none) Delusions: No Delusion Type: Other (none) Suicidal: Ideation (unable to determine) Homicidal: Ideation (unable to determine) Insight/Judgment poor Vitals/IOs Vital Signs Date Time Temp Pulse Resp B/P Pulse Ox O2 Delivery O2 Flow Rate FiO2 04/30/17 09:04 109 92/52 04/30/17 06:07 97.3 16 97 Intake and Output 04/29/17 04/29/17 04/30/17 08:00 16:00 00:00 Intake Total 1300 ml 480 ml Balance 1300 ml 480 ml Assessment & Plan Problem List: (1) Dementia with behavioral disturbance ICD Code: F03.91 Assessment & Plan Estimated LOS: days patient continues confused and demented, though no significant behavioral problems. Placement remains problematic Justification for Cont. Inpt. This time patient will decompensate if not placed in an appropriate level of care Discharge Planning To be determined Request HC Surrog/Guard Advoc?: Yes Problem Qualifiers (1) Dementia with behavioral disturbance: Qualified Code: G30.8 - Alzheimer's dementia with behavioral disturbance, unspecified timing of dementia onset Peter Fang MD Apr 30, 2017 10:25
[2017-04-30] MEDS: risperiDONE 1 MG TAB PO SCH (17:48)
[2017-04-30 18:00] VITALS: BP 131/62; PULSE 65; RESP 17; TEMP 97.8; O2SAT 96
[2017-04-30] MEDS: QUEtiapine FUMARATE 300 MG TAB PO SCH (20:52)
[2017-04-30] MEDS: DONEPEZIL HCL 5 MG TAB PO SCH (20:52)
[2017-04-30] MEDS: PRAVASTATIN SOD 20 MG TAB PO SCH (20:52)
[2017-04-30] MEDS: TAMSULOSIN HCL 0.4 MG CAP PO SCH (20:53)
[2017-05-01 06:00] VITALS: BP 124/76; PULSE 79; RESP 18; TEMP 97.2
[2017-05-01] MEDS: ATENOLOL 50 MG TAB PO SCH (09:00)
[2017-05-01] MEDS: ASPIRIN EC 81 MG TABEC PO SCH ×2 (09:00→09:35)
[2017-05-01] MEDS: PANTOPRAZOLE SOD 20 MG DELAYED RELEASE TAB PO SCH ×2 (09:35→16:42)
[2017-05-01] MEDS: MEMANTINE HCL 10 MG TAB PO SCH ×3 (09:35→20:27)
[2017-05-01] MEDS: risperiDONE 1 MG TAB PO SCH ×3 (09:42→16:45)
--- NOTE | 2017-05-01 15:16 | HHI.PYPN ---
Subjective Remarks Patient seen in his room with nurse Mark, patient calm pleasant, continues pleasantly confused, but no behavioral problems. For now continue treatment no change Review of Systems Except as stated in HPI: all other systems reviewed are Neg Objective Alert: Yes [place]: Person Mood: Calm Affect: Restricted Memory Intact: Comment (poor) Hallucinations: Other (none) Delusions: No Delusion Type: Other (none) Suicidal: Ideation (unable to determine) Homicidal: Ideation (unable to determine) Insight/Judgment Very poor Vitals/IOs Vital Signs Date Time Temp Pulse Resp B/P Pulse Ox O2 Delivery O2 Flow Rate FiO2 05/01/17 06:00 97.2 79 18 124/76 04/30/17 18:00 96 Intake and Output 04/30/17 04/30/17 04/30/17 07:59 15:59 23:59 Intake Total 1440 ml 720 ml Balance 1440 ml 720 ml Assessment & Plan Problem List: (1) Dementia with behavioral disturbance ICD Code: F03.91 Assessment & Plan Patient continues demented confuse no significant behavioral problems, compliant medication Justification for Cont. Inpt. At this time patient made decompensate if not placed in an appropriate level of care Discharge Planning To be determined Request HC Surrog/Guard Advoc?: Yes Problem Qualifiers (1) Dementia with behavioral disturbance: Qualified Code: G30.8 - Alzheimer's dementia with behavioral disturbance, unspecified timing of dementia onset Peter Fang MD May 01, 2017 15:16
[2017-05-01 18:00] VITALS: BP 107/70; PULSE 88; RESP 19; TEMP 97.2; O2SAT 98
[2017-05-01] MEDS: TAMSULOSIN HCL 0.4 MG CAP PO SCH (20:27)
[2017-05-01] MEDS: QUEtiapine FUMARATE 300 MG TAB PO SCH (20:27)
[2017-05-01] MEDS: PRAVASTATIN SOD 20 MG TAB PO SCH (20:27)
[2017-05-01] MEDS: DONEPEZIL HCL 5 MG TAB PO SCH (20:27)
[2017-05-02 05:44] VITALS: BP 122/66; PULSE 57; RESP 16; TEMP 98.7; O2SAT 98
[2017-05-02] MEDS: risperiDONE 1 MG TAB PO SCH ×2 (08:00→16:59)
[2017-05-02] MEDS: ATENOLOL 50 MG TAB PO SCH (09:00)
[2017-05-02] MEDS: ASPIRIN EC 81 MG TABEC PO SCH (09:00)
[2017-05-02] MEDS: MEMANTINE HCL 10 MG TAB PO SCH ×2 (09:00→20:26)
[2017-05-02] MEDS: PANTOPRAZOLE SOD 20 MG DELAYED RELEASE TAB PO SCH (09:00)
--- NOTE | 2017-05-02 10:28 | HHI.PYPN ---
Subjective Remarks Patient was seen and case discussed with nursing. Patient is calm and cooperative and pleasant during the exam. Per nursing he pooped in the trashcan last night. Patient is grossly confused, alert and oriented 1. Behaving well on the unit compliant with his medications. Objective Alert: Yes [place]: Person Mood: Calm Affect: Restricted Memory Intact: Comment (poor) Hallucinations: Other (none) Delusions: No Delusion Type: Other (none) Suicidal: Ideation (unable to determine) Homicidal: Ideation (unable to determine) Insight/Judgment Poor Vitals/IOs Vital Signs Date Time Temp Pulse Resp B/P Pulse Ox O2 Delivery O2 Flow Rate FiO2 05/02/17 05:44 98.7 57 16 122/66 98 Intake and Output 05/01/17 05/01/17 05/02/17 08:00 16:00 00:00 Intake Total 240 ml 960 ml 460 ml Balance 240 ml 960 ml 460 ml Assessment & Plan Problem List: (1) Dementia with behavioral disturbance ICD Code: F03.91 Assessment & Plan Continue current treatment plan Justification for Cont. Inpt. Patient will decompensate in a less restrictive setting Request HC Surrog/Guard Advoc?: Yes Problem Qualifiers (1) Dementia with behavioral disturbance: Qualified Code: G30.8 - Alzheimer's dementia with behavioral disturbance, unspecified timing of dementia onset Remi Brandt DO May 02, 2017 10:28
[2017-05-02] MEDS: DONEPEZIL HCL 5 MG TAB PO SCH (20:25)
[2017-05-02] MEDS: TAMSULOSIN HCL 0.4 MG CAP PO SCH (20:26)
[2017-05-02] MEDS: QUEtiapine FUMARATE 300 MG TAB PO SCH (20:26)
[2017-05-02] MEDS: PRAVASTATIN SOD 20 MG TAB PO SCH (20:26)
[2017-05-03 06:00] VITALS: BP 92/54; PULSE 70; RESP 17; TEMP 97.8; O2SAT 96
[2017-05-03] MEDS: ATENOLOL 50 MG TAB PO SCH (09:00)
[2017-05-03] MEDS: MEMANTINE HCL 10 MG TAB PO SCH ×2 (10:27→21:00)
[2017-05-03] MEDS: PANTOPRAZOLE SOD 20 MG DELAYED RELEASE TAB PO SCH (10:27)
[2017-05-03] MEDS: ASPIRIN EC 81 MG TABEC PO SCH (10:28)
[2017-05-03] MEDS: risperiDONE 1 MG TAB PO SCH ×2 (10:32→17:38)
--- NOTE | 2017-05-03 13:01 | HHI.PYPN ---
Subjective Remarks Patient was seen and case discussed with nursing. Patient is pleasant and cooperative with exam. Behaving well on the unit. One low blood pressure reading this morning and will be repeated. Remains grossly disorganized continuously going to the wrong room. Denies auditory or visual hallucinations. Compliant with his medications and tolerating them well Objective Alert: Yes [place]: Person Mood: Calm Affect: Blunted Memory Intact: Comment (poor) Hallucinations: Other (none) Delusions: No Delusion Type: Other (none) Suicidal: Ideation (unable to determine) Homicidal: Ideation (unable to determine) Insight/Judgment Poor Vitals/IOs Vital Signs Date Time Temp Pulse Resp B/P Pulse Ox O2 Delivery O2 Flow Rate FiO2 05/03/17 06:00 97.8 70 17 92/54 96 Intake and Output 05/02/17 05/02/17 05/02/17 07:59 15:59 23:59 Intake Total 240 ml 480 ml Balance 240 ml 480 ml Assessment & Plan Problem List: (1) Dementia with behavioral disturbance ICD Code: F03.91 Assessment & Plan Continue current treatment plan Justification for Cont. Inpt. Patient will decompensate in a less restrictive setting Request HC Surrog/Guard Advoc?: Yes Problem Qualifiers (1) Dementia with behavioral disturbance: Qualified Code: G30.8 - Alzheimer's dementia with behavioral disturbance, unspecified timing of dementia onset Remi Brandt DO May 03, 2017 13:01
[2017-05-03] MEDS: TAMSULOSIN HCL 0.4 MG CAP PO SCH (21:00)
[2017-05-03] MEDS: PRAVASTATIN SOD 20 MG TAB PO SCH (21:00)
[2017-05-03] MEDS: DONEPEZIL HCL 5 MG TAB PO SCH (21:00)
[2017-05-03] MEDS: QUEtiapine FUMARATE 300 MG TAB PO SCH (21:00)
[2017-05-03] MEDS: LORazepam 1 MG TAB PO PRN (23:13)
[2017-05-04 05:29] VITALS: BP 125/72; PULSE 89; RESP 17; TEMP 97.5; O2SAT 98
[2017-05-04] MEDS: ATENOLOL 50 MG TAB PO SCH (08:54)
[2017-05-04] MEDS: ASPIRIN EC 81 MG TABEC PO SCH (08:54)
[2017-05-04] MEDS: PANTOPRAZOLE SOD 20 MG DELAYED RELEASE TAB PO SCH (08:54)
[2017-05-04] MEDS: MEMANTINE HCL 10 MG TAB PO SCH ×2 (08:54→20:31)
[2017-05-04] MEDS: risperiDONE 1 MG TAB PO SCH ×2 (08:56→17:43)
--- NOTE | 2017-05-04 15:12 | HHI.PYPN ---
Subjective Remarks Patient seen in day room staff and Dr. Yang. Chart reviewed. It appears patient is having more difficulty sleeping up late at night becoming somewhat more irritable. Also related today patient attempted to elope when I was leaving the unit. Otherwise patient no significant behavioral problems except for some diffuse increased irritability. For now will increase at bedtime Seroquel to 400 mg Review of Systems Except as stated in HPI: all other systems reviewed are Neg Objective Alert: Yes [place]: Person Mood: Calm Affect: Blunted Memory Intact: Comment (poor) Hallucinations: Other (none) Delusions: No Delusion Type: Other (none) Suicidal: Ideation (unable to determine) Homicidal: Ideation (unable to determine) Insight/Judgment Very poor Vitals/IOs Vital Signs Date Time Temp Pulse Resp B/P Pulse Ox O2 Delivery O2 Flow Rate FiO2 05/04/17 05:29 97.5 89 17 125/72 98 Intake and Output 05/03/17 05/03/17 05/04/17 08:00 16:00 00:00 Intake Total 2440 ml Balance 2440 ml Assessment & Plan Problem List: (1) Dementia with behavioral disturbance ICD Code: F03.91 Assessment & Plan Estimated LOS: days patient continues demented with some increased exits seeking and some increased insomnia and irritability. Will increase at bedtime Seroquel to 400 mg Justification for Cont. Inpt. At this time patient will decompensate if placed in a lower level of care Discharge Planning To be determined Request HC Surrog/Guard Advoc?: Yes Problem Qualifiers (1) Dementia with behavioral disturbance: Qualified Code: G30.8 - Alzheimer's dementia with behavioral disturbance, unspecified timing of dementia onset Peter Fang MD May 04, 2017 15:12
[2017-05-04 16:43] VITALS: BP 123/71; PULSE 60; RESP 18; TEMP 98.5; O2SAT 92
[2017-05-04] MEDS: QUEtiapine FUMARATE 200 MG TAB PO SCH (20:31)
[2017-05-04] MEDS: PRAVASTATIN SOD 20 MG TAB PO SCH (20:31)
[2017-05-04] MEDS: TAMSULOSIN HCL 0.4 MG CAP PO SCH (20:31)
[2017-05-04] MEDS: DONEPEZIL HCL 5 MG TAB PO SCH (20:33)
[2017-05-05 06:05] VITALS: BP 122/64; PULSE 60; RESP 18; TEMP 97.9; O2SAT 97
[2017-05-05] MEDS: ASPIRIN EC 81 MG TABEC PO SCH (09:15)
[2017-05-05] MEDS: ATENOLOL 50 MG TAB PO SCH (09:15)
[2017-05-05] MEDS: PANTOPRAZOLE SOD 20 MG DELAYED RELEASE TAB PO SCH (09:15)
[2017-05-05] MEDS: MEMANTINE HCL 10 MG TAB PO SCH ×2 (09:15→21:23)
[2017-05-05] MEDS: risperiDONE 1 MG TAB PO SCH ×2 (09:17→17:35)
--- NOTE | 2017-05-05 10:24 | HHI.PYPN ---
Subjective Remarks Patient seen in his room with nurse Serenity, chart review, patient compliant medications. Patient laying in bed napping though arousable to calm friendly and diffusely confused. For now continue treatment Review of Systems Except as stated in HPI: all other systems reviewed are Neg Objective Alert: Yes [place]: Person Mood: Calm Affect: Blunted Memory Intact: Comment (poor) Hallucinations: Other (none) Delusions: No Delusion Type: Other (none) Suicidal: Ideation (unable to determine) Homicidal: Ideation (unable to determine) Insight/Judgment Very poor Vitals/IOs Vital Signs Date Time Temp Pulse Resp B/P Pulse Ox O2 Delivery O2 Flow Rate FiO2 05/05/17 06:05 97.9 60 18 122/64 97 Intake and Output 05/04/17 05/04/17 05/05/17 08:00 16:00 00:00 Intake Total 1920 ml Balance 1920 ml Assessment & Plan Problem List: (1) Dementia with behavioral disturbance ICD Code: F03.91 Assessment & Plan Estimated LOS: days patient continues confused and demented though compliant with medications. Justification for Cont. Inpt. At this time patient will decompensate if not placed in an appropriate level of care Discharge Planning To be determined Request HC Surrog/Guard Advoc?: Yes Problem Qualifiers (1) Dementia with behavioral disturbance: Qualified Code: G30.8 - Alzheimer's dementia with behavioral disturbance, unspecified timing of dementia onset Peter Fang MD May 05, 2017 10:24
--- NOTE | 2017-05-05 13:14 | PD.TTN ---
Present for Treatment Team Treatment Team Staff: Provider (Dr. Medel), Nurse (Mark), Psych Therapist Patient Problems 1. Discharge planning 2. Medication compliance 3. Knowledge deficit 4. Lack of coping skills Progress Toward Goals Provider Input: Dr. Medel inquired regarding patient's medication comlpiance and mental status. Dr. medel reported the patient's Haldol has been discontinued and patient is now taking Risperdal. Nurse Input: Mark reported the patient was pacing all night, has raw bites on his left ankle, restless,responding to internal stimuli. Psych Therapist Input: Counselor reported the patient remains compliant with medications and placement remains an issue. Counselor will continue search for placement. Documentation Scribe: Modesta Ornelas Date Resolved: May 04, 2017 Serena Harris May 05, 2017 13:14
[2017-05-05 17:53] VITALS: BP 119/59; PULSE 62; RESP 18; O2SAT 98
[2017-05-05] MEDS: DONEPEZIL HCL 5 MG TAB PO SCH (21:00)
[2017-05-05] MEDS: QUEtiapine FUMARATE 200 MG TAB PO SCH (21:23)
[2017-05-05] MEDS: PRAVASTATIN SOD 20 MG TAB PO SCH (21:24)
[2017-05-05] MEDS: TAMSULOSIN HCL 0.4 MG CAP PO SCH (21:24)
[2017-05-06 06:00] VITALS: BP 94/55; PULSE 87; RESP 16; TEMP 97.5
[2017-05-06] MEDS: ATENOLOL 50 MG TAB PO SCH (09:00)
[2017-05-06] MEDS: PANTOPRAZOLE SOD 20 MG DELAYED RELEASE TAB PO SCH (09:23)
[2017-05-06] MEDS: ASPIRIN EC 81 MG TABEC PO SCH (09:23)
[2017-05-06] MEDS: MEMANTINE HCL 10 MG TAB PO SCH ×2 (09:23→22:04)
[2017-05-06 09:31] VITALS: BP 98/60
[2017-05-06] MEDS: risperiDONE 1 MG TAB PO SCH ×2 (09:31→18:16)
--- NOTE | 2017-05-06 10:44 | HHI.PYPN ---
Subjective Remarks Patient seen in his room with floor staff, chart reviewed, patient compliant medications. He continues pleasantly confused disoriented though no behavioral problems. Review of Systems Except as stated in HPI: all other systems reviewed are Neg Objective Alert: Yes [place]: Person Mood: Calm Affect: Blunted Memory Intact: Comment (poor) Hallucinations: Other (none) Delusions: No Delusion Type: Other (none) Suicidal: Ideation (unable to determine) Homicidal: Ideation (unable to determine) Insight/Judgment Very poor Vitals/IOs Vital Signs Date Time Temp Pulse Resp B/P Pulse Ox O2 Delivery O2 Flow Rate FiO2 05/06/17 09:31 98/60 05/06/17 06:00 97.5 87 16 05/05/17 17:53 98 Intake and Output 05/05/17 05/05/17 05/06/17 08:00 16:00 00:00 Intake Total 600 ml 840 ml Balance 600 ml 840 ml Assessment & Plan Problem List: (1) Dementia with behavioral disturbance ICD Code: F03.91 Assessment & Plan Estimated LOS: days patient continues diffusely confused disoriented though no significant behavior problems. Compliant medications Justification for Cont. Inpt. At this time patient may decompensate if not placed in an appropriate level of care Discharge Planning To be determined Request HC Surrog/Guard Advoc?: Yes Problem Qualifiers (1) Dementia with behavioral disturbance: Qualified Code: G30.8 - Alzheimer's dementia with behavioral disturbance, unspecified timing of dementia onset Peter Fang MD May 06, 2017 10:44
[2017-05-06 18:00] VITALS: BP 138/60; PULSE 74; RESP 20; TEMP 97.5; O2SAT 96
[2017-05-06] MEDS: QUEtiapine FUMARATE 200 MG TAB PO SCH (22:04)
[2017-05-06] MEDS: TAMSULOSIN HCL 0.4 MG CAP PO SCH (22:04)
[2017-05-06] MEDS: PRAVASTATIN SOD 20 MG TAB PO SCH (22:04)
[2017-05-06] MEDS: DONEPEZIL HCL 5 MG TAB PO SCH (22:04)
[2017-05-07 05:58] VITALS: BP 113/59; PULSE 71; RESP 16; TEMP 97.9
[2017-05-07] MEDS: PANTOPRAZOLE SOD 20 MG DELAYED RELEASE TAB PO SCH (08:29)
[2017-05-07] MEDS: ASPIRIN EC 81 MG TABEC PO SCH (08:30)
[2017-05-07] MEDS: MEMANTINE HCL 10 MG TAB PO SCH ×2 (08:30→21:32)
[2017-05-07] MEDS: ATENOLOL 50 MG TAB PO SCH (08:30)
[2017-05-07] MEDS: risperiDONE 1 MG TAB PO SCH ×2 (08:33→18:06)
--- NOTE | 2017-05-07 10:38 | HHI.PYPN ---
Subjective Remarks Patient seen in his room with nurse Pam, chart review, patient laying quietly in bed. The remains Shelley confused. At times though his slightly more irritable than the past few days. Compliant medications Review of Systems Except as stated in HPI: all other systems reviewed are Neg Objective Alert: Yes [place]: Person Mood: Calm Affect: Blunted Memory Intact: Comment (poor) Hallucinations: Other (none) Delusions: No Delusion Type: Other (none) Suicidal: Ideation (unable to determine) Homicidal: Ideation (unable to determine) Insight/Judgment Very poor Vitals/IOs Vital Signs Date Time Temp Pulse Resp B/P Pulse Ox O2 Delivery O2 Flow Rate FiO2 05/07/17 05:58 97.9 71 16 113/59 05/06/17 18:00 96 Intake and Output 05/06/17 05/06/17 05/07/17 08:00 16:00 00:00 Intake Total 240 ml 240 ml 840 ml Balance 240 ml 240 ml 840 ml Assessment & Plan Problem List: (1) Dementia with behavioral disturbance ICD Code: F03.91 Assessment & Plan Estimated LOS: days patient continues demented and confused with no behavioral problems. For now continue treatment Justification for Cont. Inpt. At this time patient may decompensate if not placed at an appropriate level of care Discharge Planning To be determined Request HC Surrog/Guard Advoc?: Yes Problem Qualifiers (1) Dementia with behavioral disturbance: Qualified Code: G30.8 - Alzheimer's dementia with behavioral disturbance, unspecified timing of dementia onset Peter Fang MD May 07, 2017 10:38
[2017-05-07 17:28] VITALS: BP 101/59; PULSE 64; RESP 16; TEMP 97.4; O2SAT 100
[2017-05-07] MEDS: TAMSULOSIN HCL 0.4 MG CAP PO SCH (21:32)
[2017-05-07] MEDS: DONEPEZIL HCL 5 MG TAB PO SCH (21:32)
[2017-05-07] MEDS: PRAVASTATIN SOD 20 MG TAB PO SCH (21:32)
[2017-05-07] MEDS: QUEtiapine FUMARATE 200 MG TAB PO SCH (21:33)
[2017-05-08 06:56] VITALS: BP 124/60; PULSE 57; RESP 17; TEMP 98.2
[2017-05-08] MEDS: ATENOLOL 50 MG TAB PO SCH (09:00)
[2017-05-08] MEDS: PANTOPRAZOLE SOD 20 MG DELAYED RELEASE TAB PO SCH (09:56)
[2017-05-08] MEDS: MEMANTINE HCL 10 MG TAB PO SCH ×2 (09:56→21:54)
[2017-05-08] MEDS: ASPIRIN EC 81 MG TABEC PO SCH (09:56)
[2017-05-08] MEDS: risperiDONE 1 MG TAB PO SCH ×2 (09:59→17:26)
--- NOTE | 2017-05-08 12:25 | HHI.PYPN ---
Subjective Remarks Patient seen in day room with nurse Tanya, chart reviewed. Patient compliant medications. Patient no behavioral problems at this time, continues pleasantly confused. Review of Systems Except as stated in HPI: all other systems reviewed are Neg Objective Alert: Yes [place]: Person Mood: Calm Affect: Blunted Memory Intact: Comment (poor) Hallucinations: Other (none) Delusions: No Delusion Type: Other (none) Suicidal: Ideation (unable to determine) Homicidal: Ideation (unable to determine) Insight/Judgment Very poor Vitals/IOs Vital Signs Date Time Temp Pulse Resp B/P Pulse Ox O2 Delivery O2 Flow Rate FiO2 05/08/17 06:56 98.2 57 17 124/60 05/07/17 17:28 100 Intake and Output 05/07/17 05/07/17 05/08/17 08:00 16:00 00:00 Intake Total 240 ml 120 ml 480 ml Balance 240 ml 120 ml 480 ml Assessment & Plan Problem List: (1) Dementia with behavioral disturbance ICD Code: F03.91 Assessment & Plan Estimated LOS: days patient continues diffusely confused disoriented, though safer behavioral problems. Compliant medications. Placement remains problematic Justification for Cont. Inpt. At this time patient will decompensate if not placed an appropriate level of care Discharge Planning To be determined Request HC Surrog/Guard Advoc?: Yes Problem Qualifiers (1) Dementia with behavioral disturbance: Qualified Code: G30.8 - Alzheimer's dementia with behavioral disturbance, unspecified timing of dementia onset Peter Fang MD May 08, 2017 12:25
[2017-05-08 16:09] VITALS: BP 132/72; PULSE 52; RESP 18; TEMP 97.9; O2SAT 92
[2017-05-08] MEDS: DONEPEZIL HCL 5 MG TAB PO SCH (21:53)
[2017-05-08] MEDS: PRAVASTATIN SOD 20 MG TAB PO SCH (21:53)
[2017-05-08] MEDS: QUEtiapine FUMARATE 200 MG TAB PO SCH (21:53)
[2017-05-08] MEDS: TAMSULOSIN HCL 0.4 MG CAP PO SCH (21:53)
[2017-05-09 06:00] VITALS: BP 129/65; PULSE 57; RESP 17; TEMP 98.9; O2SAT 98
[2017-05-09] MEDS: ATENOLOL 50 MG TAB PO SCH (09:00)
[2017-05-09] MEDS: PANTOPRAZOLE SOD 20 MG DELAYED RELEASE TAB PO SCH (09:45)
[2017-05-09] MEDS: risperiDONE 1 MG TAB PO SCH ×2 (09:45→18:00)
[2017-05-09] MEDS: ASPIRIN EC 81 MG TABEC PO SCH (09:45)
[2017-05-09] MEDS: MEMANTINE HCL 10 MG TAB PO SCH ×2 (09:45→20:10)
--- NOTE | 2017-05-09 12:19 | HHI.PYPN ---
Subjective Remarks Patient was seen and case discussed with nursing. Patient is pleasant and polite with the interview. Eating and sleeping well. No verbal or physical outbursts. Compliant with his medications. Alert and oriented 2. Objective Alert: Yes [place]: Person, Place Mood: Calm Affect: Restricted Memory Intact: Comment (poor) Hallucinations: Other (none) Delusions: No Delusion Type: Other (none) Suicidal: Ideation (unable to determine) Homicidal: Ideation (unable to determine) Insight/Judgment Poor Vitals/IOs Vital Signs Date Time Temp Pulse Resp B/P Pulse Ox O2 Delivery O2 Flow Rate FiO2 05/09/17 06:00 98.9 57 17 129/65 98 Intake and Output 05/08/17 05/08/17 05/09/17 08:00 16:00 00:00 Intake Total 480 ml 920 ml Balance 480 ml 920 ml Assessment & Plan Problem List: (1) Dementia with behavioral disturbance ICD Code: F03.91 Assessment & Plan Continue current treatment plan Justification for Cont. Inpt. Patient will decompensate in a less restrictive setting Request HC Surrog/Guard Advoc?: Yes Problem Qualifiers (1) Dementia with behavioral disturbance: Qualified Code: G30.8 - Alzheimer's dementia with behavioral disturbance, unspecified timing of dementia onset Remi Brandt DO May 09, 2017 12:19
[2017-05-09] MEDS: QUEtiapine FUMARATE 200 MG TAB PO SCH (20:10)
[2017-05-09] MEDS: DONEPEZIL HCL 5 MG TAB PO SCH (20:10)
[2017-05-09] MEDS: TAMSULOSIN HCL 0.4 MG CAP PO SCH (20:10)
[2017-05-09] MEDS: PRAVASTATIN SOD 20 MG TAB PO SCH (20:10)
[2017-05-10 06:00] VITALS: BP 123/55; PULSE 77; RESP 20; TEMP 97.7; O2SAT 97
[2017-05-10] MEDS: PANTOPRAZOLE SOD 20 MG DELAYED RELEASE TAB PO SCH (09:28)
[2017-05-10] MEDS: MEMANTINE HCL 10 MG TAB PO SCH ×2 (09:28→20:01)
[2017-05-10] MEDS: ASPIRIN EC 81 MG TABEC PO SCH (09:28)
[2017-05-10] MEDS: ATENOLOL 50 MG TAB PO SCH (09:29)
[2017-05-10] MEDS: risperiDONE 1 MG TAB PO SCH ×2 (09:31→17:07)
--- NOTE | 2017-05-10 10:59 | HHI.PYPN ---
Subjective Remarks Patient was seen and case discussed with nursing. Patient is pleasant and cooperative with exam. Eating and sleeping well per nursing. No verbal or physical outbursts. His compliant with his medications and tolerating it well. Denies auditory visual hallucinations Objective Alert: Yes [place]: Person, Place Mood: Calm Affect: Restricted Memory Intact: Comment (poor) Hallucinations: Other (none) Delusions: No Delusion Type: Other (none) Suicidal: Ideation (unable to determine) Homicidal: Ideation (unable to determine) Insight/Judgment Poor Vitals/IOs Vital Signs Date Time Temp Pulse Resp B/P Pulse Ox O2 Delivery O2 Flow Rate FiO2 05/10/17 06:00 97.7 77 20 123/55 97 Intake and Output 05/09/17 05/09/17 05/10/17 08:00 16:00 00:00 Intake Total 240 ml 240 ml 720 ml Balance 240 ml 240 ml 720 ml Assessment & Plan Problem List: (1) Dementia with behavioral disturbance ICD Code: F03.91 Assessment & Plan Continue current treatment plan Justification for Cont. Inpt. Patient would decompensate in a less restrictive setting Request HC Surrog/Guard Advoc?: Yes Problem Qualifiers (1) Dementia with behavioral disturbance: Qualified Code: G30.8 - Alzheimer's dementia with behavioral disturbance, unspecified timing of dementia onset Remi Brandt DO May 10, 2017 10:59
[2017-05-10 18:40] VITALS: BP 89/51; PULSE 81; RESP 18; TEMP 97.3; O2SAT 98
[2017-05-10] MEDS: TAMSULOSIN HCL 0.4 MG CAP PO SCH (20:00)
[2017-05-10] MEDS: QUEtiapine FUMARATE 200 MG TAB PO SCH (20:00)
[2017-05-10] MEDS: DONEPEZIL HCL 5 MG TAB PO SCH (20:00)
[2017-05-10] MEDS: PRAVASTATIN SOD 20 MG TAB PO SCH (20:01)
[2017-05-11 06:13] VITALS: BP 119/58; PULSE 67; RESP 15; TEMP 98.4; O2SAT 95
[2017-05-11] MEDS: risperiDONE 1 MG TAB PO SCH ×2 (08:00→17:22)
[2017-05-11] MEDS: ATENOLOL 50 MG TAB PO SCH (08:47)
[2017-05-11] MEDS: PANTOPRAZOLE SOD 20 MG DELAYED RELEASE TAB PO SCH (08:47)
[2017-05-11] MEDS: ASPIRIN EC 81 MG TABEC PO SCH (08:48)
[2017-05-11] MEDS: MEMANTINE HCL 10 MG TAB PO SCH ×2 (08:48→21:34)
--- NOTE | 2017-05-11 11:50 | PD.TTN ---
Present for Treatment Team Treatment Team Staff: Provider (Dr. Fang), Nurse (Katherine), Psych Therapist ( BOBBY Ornelas), Other Clinician (Zoraida. rec. therapy), Other Patient Problems 1. Discharge planning 2. Medication compliance 3. Knowledge deficit 4. Lack of coping skills Progress Toward Goals Provider Input: Dr. Fang requested an update regarding patient's progress, medication management, treatment plan, and discharge plan. Nurse Input: Katherine reported the patient remains medication compliant, paces the anita and at times attempts to assist with the care of his peers, but is easily rediredted. Psych Therapist Input: Counselor reported the patient remains a placement issue. Other Clinican Input: rec. Zoraida therapy, reported the patient does participate in recreational groups. Documentation Scribe: BOBBY Ornelas Date Resolved: May 11, 2017 Serena Harris May 11, 2017 11:50
--- NOTE | 2017-05-11 17:00 | HHI.PYPN ---
Subjective Remarks Patient seen in [place] of floor staff, it appears patient has a fine rash noted over his trunk and some extremities will have hospitalist assess and treat. Otherwise patient no significant behavior problems continues diffusely confused but overall pleasant Review of Systems Except as stated in HPI: all other systems reviewed are Neg Integumentary: COMPLAINS OF: Pruritus, Rash Objective Alert: Yes [place]: Person, Place Mood: Calm Affect: Restricted Memory Intact: Comment (poor) Hallucinations: Other (none) Delusions: No Delusion Type: Other (none) Suicidal: Ideation (unable to determine) Homicidal: Ideation (unable to determine) Insight/Judgment Poor Vitals/IOs Vital Signs Date Time Temp Pulse Resp B/P Pulse Ox O2 Delivery O2 Flow Rate FiO2 05/11/17 06:13 98.4 67 15 119/58 95 Intake and Output 05/10/17 05/10/17 05/11/17 08:00 16:00 00:00 Intake Total 0 ml 660 ml Balance 0 ml 660 ml Assessment & Plan Problem List: (1) Dementia with behavioral disturbance ICD Code: F03.91 Assessment & Plan Estimated LOS: days patient continues demented confused than no significant behavioral problem. Blood hospitalist assess rationalize been noted on his torso and extremities Justification for Cont. Inpt. At this time patient will decompensate if placed a lower level of care Discharge Planning To be determined Request HC Surrog/Guard Advoc?: Yes Problem Qualifiers (1) Dementia with behavioral disturbance: Qualified Code: G30.8 - Alzheimer's dementia with behavioral disturbance, unspecified timing of dementia onset Peter Fang MD May 11, 2017 17:00
[2017-05-11 18:00] VITALS: BP 128/91; PULSE 68; RESP 16; TEMP 97.6; O2SAT 97
[2017-05-11] MEDS: QUEtiapine FUMARATE 200 MG TAB PO SCH (21:34)
[2017-05-11] MEDS: PRAVASTATIN SOD 20 MG TAB PO SCH (21:34)
[2017-05-11] MEDS: DONEPEZIL HCL 5 MG TAB PO SCH (21:34)
[2017-05-11] MEDS: LORazepam 1 MG TAB PO PRN (21:34)
[2017-05-11] MEDS: TAMSULOSIN HCL 0.4 MG CAP PO SCH (21:34)
[2017-05-12 06:00] VITALS: BP 91/63; PULSE 80; RESP 17; TEMP 98; O2SAT 96
[2017-05-12] MEDS: risperiDONE 1 MG TAB PO SCH ×2 (08:00→17:15)
[2017-05-12] MEDS: ASPIRIN EC 81 MG TABEC PO SCH (09:00)
[2017-05-12] MEDS: PANTOPRAZOLE SOD 20 MG DELAYED RELEASE TAB PO SCH (09:00)
[2017-05-12] MEDS: ATENOLOL 50 MG TAB PO SCH (09:00)
[2017-05-12] MEDS: MEMANTINE HCL 10 MG TAB PO SCH ×2 (09:00→20:30)
--- NOTE | 2017-05-12 10:06 | HHI.PYPN ---
Subjective Remarks Patient seen in day room with floor staff, chart review, patient showing no significant behavioral problems. Continue somewhat isolated the pleasant with me. For now continue treatment Review of Systems Except as stated in HPI: all other systems reviewed are Neg Objective Alert: Yes [place]: Person, Place Mood: Calm Affect: Restricted Memory Intact: Comment (poor) Hallucinations: Other (none) Delusions: No Delusion Type: Other (none) Suicidal: Ideation (unable to determine) Homicidal: Ideation (unable to determine) Insight/Judgment Very poor Vitals/IOs Vital Signs Date Time Temp Pulse Resp B/P Pulse Ox O2 Delivery O2 Flow Rate FiO2 05/12/17 06:00 98.0 80 17 91/63 96 Intake and Output 05/11/17 05/11/17 05/12/17 08:00 16:00 00:00 Intake Total 240 ml 240 ml 240 ml Balance 240 ml 240 ml 240 ml Assessment & Plan Problem List: (1) Dementia with behavioral disturbance ICD Code: F03.91 Assessment & Plan Estimated LOS: days patient continues demented confused though no behavior problem. Compliant medications. Justification for Cont. Inpt. At this time patient will decompensate if not placed in an appropriate level of care Discharge Planning To be determined Request HC Surrog/Guard Advoc?: Yes Problem Qualifiers (1) Dementia with behavioral disturbance: Qualified Code: G30.8 - Alzheimer's dementia with behavioral disturbance, unspecified timing of dementia onset Peter Fang MD May 12, 2017 10:06
[2017-05-12 15:40] VITALS: BP 145/64; PULSE 86; RESP 18; TEMP 98.2; O2SAT 95
[2017-05-12] MEDS: TAMSULOSIN HCL 0.4 MG CAP PO SCH (20:29)
[2017-05-12] MEDS: DONEPEZIL HCL 5 MG TAB PO SCH (20:29)
[2017-05-12] MEDS: LORazepam 1 MG TAB PO PRN (20:29)
[2017-05-12] MEDS: QUEtiapine FUMARATE 200 MG TAB PO SCH (20:30)
[2017-05-12] MEDS: PRAVASTATIN SOD 20 MG TAB PO SCH (20:30)
[2017-05-13 06:00] VITALS: BP 96/63; PULSE 95; RESP 18; TEMP 98.3; O2SAT 96
[2017-05-13] MEDS: risperiDONE 1 MG TAB PO SCH ×2 (08:00→17:53)
[2017-05-13] MEDS: PANTOPRAZOLE SOD 20 MG DELAYED RELEASE TAB PO SCH (09:00)
[2017-05-13] MEDS: ATENOLOL 50 MG TAB PO SCH (09:00)
[2017-05-13] MEDS: MEMANTINE HCL 10 MG TAB PO SCH ×2 (09:00→20:03)
[2017-05-13] MEDS: ASPIRIN EC 81 MG TABEC PO SCH (09:00)
[2017-05-13 12:00] VITALS: BP 119/63; PULSE 59
--- NOTE | 2017-05-13 15:14 | HHI.PYPN ---
Subjective Remarks Patient seen in his room with staff, chart review. Patient is pleasantly confused though is showing more more scratching behaviors with a rash and pruritus. We will have hospitalist reconsult with us to assess whether this is more and obsessive compulsive behavior or something medical Review of Systems Except as stated in HPI: all other systems reviewed are Neg Objective Alert: Yes [place]: Person, Place Mood: Calm Affect: Restricted Memory Intact: Comment (poor) Hallucinations: Other (none) Delusions: No Delusion Type: Other (none) Suicidal: Ideation (unable to determine) Homicidal: Ideation (unable to determine) Insight/Judgment Very poor Vitals/IOs Vital Signs Date Time Temp Pulse Resp B/P Pulse Ox O2 Delivery O2 Flow Rate FiO2 05/13/17 12:00 59 119/63 05/13/17 06:00 98.3 18 96 Intake and Output 05/12/17 05/12/17 05/12/17 07:59 15:59 23:59 Intake Total 1200 ml Balance 1200 ml Assessment & Plan Problem List: (1) Dementia with behavioral disturbance ICD Code: F03.91 Assessment & Plan Estimated LOS: days patient continues demented confused though no significant behavior problems. Of hospitalist reconsult us related to patient's rash and pruritus Justification for Cont. Inpt. At this time patient will decompensate in place to the lower level of care Discharge Planning To be determined Request HC Surrog/Guard Advoc?: Yes Problem Qualifiers (1) Dementia with behavioral disturbance: Qualified Code: G30.8 - Alzheimer's dementia with behavioral disturbance, unspecified timing of dementia onset Peter Fang MD May 13, 2017 15:13
[2017-05-13 18:00] VITALS: BP 151/77; PULSE 103; RESP 16; TEMP 98.2; O2SAT 97
[2017-05-13] MEDS: DONEPEZIL HCL 5 MG TAB PO SCH (20:03)
[2017-05-13] MEDS: PRAVASTATIN SOD 20 MG TAB PO SCH (20:03)
[2017-05-13] MEDS: QUEtiapine FUMARATE 200 MG TAB PO SCH (20:03)
[2017-05-13] MEDS: TAMSULOSIN HCL 0.4 MG CAP PO SCH (20:03)
[2017-05-14 05:18] VITALS: BP 116/73; PULSE 85; RESP 18; TEMP 98.9; O2SAT 98
[2017-05-14] MEDS ORDERED: hydrOXYzine HCL 25 MG TAB PO PRN (07:45)
[2017-05-14] MEDS: HYDROCORTISONE 1% LOTN 120 ML BTL TOPICAL SCH ×3 (07:45→22:00)
[2017-05-14] MEDS: PANTOPRAZOLE SOD 20 MG DELAYED RELEASE TAB PO SCH (09:32)
[2017-05-14] MEDS: ASPIRIN EC 81 MG TABEC PO SCH (09:32)
[2017-05-14] MEDS: risperiDONE 1 MG TAB PO SCH ×2 (09:32→18:00)
[2017-05-14] MEDS: MEMANTINE HCL 10 MG TAB PO SCH ×2 (09:32→21:00)
[2017-05-14] MEDS: ATENOLOL 50 MG TAB PO SCH (09:32)
--- NOTE | 2017-05-14 10:11 | HHI.PYPN ---
Subjective Remarks Patient seen in his room with floor staff, chart review, patient compliant medication. Patient continues to isolate, though no behavioral problem. He continues calm pleasant with me diffusely confused. For now continue treatment Review of Systems Except as stated in HPI: all other systems reviewed are Neg Objective Alert: Yes [place]: Person, Place Mood: Calm Affect: Restricted Memory Intact: Comment (poor) Hallucinations: Other (none) Delusions: No Delusion Type: Other (none) Suicidal: Ideation (unable to determine) Homicidal: Ideation (unable to determine) Insight/Judgment Poor Vitals/IOs Vital Signs Date Time Temp Pulse Resp B/P Pulse Ox O2 Delivery O2 Flow Rate FiO2 05/14/17 05:18 98.9 85 18 116/73 98 Intake and Output 05/13/17 05/13/17 05/14/17 08:00 16:00 00:00 Intake Total 240 ml 840 ml Output Total 0 ml Balance 240 ml 840 ml Assessment & Plan Problem List: (1) Dementia with behavioral disturbance ICD Code: F03.91 Assessment & Plan Estimated LOS: days patient continues to mentate confused though no significant behavioral problem Justification for Cont. Inpt. This 10 patient may decompensate if not placed in an appropriate level of care Discharge Planning To be determined Request HC Surrog/Guard Advoc?: Yes Problem Qualifiers (1) Dementia with behavioral disturbance: Qualified Code: G30.8 - Alzheimer's dementia with behavioral disturbance, unspecified timing of dementia onset Peter Fang MD May 14, 2017 10:11
--- NOTE | 2017-05-14 16:33 | HHI.PR ---
Subjective Remarks Consulted for bilateral lower extremity rash. Patient says he has itchy skin. He has burrows appearing rash on lower extremities. Patient develops excoriation due to scratching excessively on his left inner thigh. He denies any fever or chills. No nausea or vomiting. No diarrhea or constipation. Objective Vitals Vital Signs Date Time Temp Pulse Resp B/P Pulse Ox O2 Delivery O2 Flow Rate FiO2 05/14/17 05:18 98.9 85 18 116/73 98 05/13/17 18:00 98.2 103 16 151/77 97 I/O 05/13/17 05/13/17 05/13/17 05/14/17 05/14/17 05/14/17 07:00 15:00 23:00 07:00 15:00 23:00 Intake Total 240 ml 840 ml 600 ml Output Total 0 ml Balance 240 ml 840 ml 600 ml Intake Oral 240 ml 840 ml 600 ml Output Urine Total 0 ml # Voids 1 1 Imaging Last Impressions Head CT 04/09/171732 Signed Impressions: Service Date/Time: March 18:11 - CONCLUSION: Negative noncontrast CT. Chago Jara MD Chest X-Ray 04/09/171732 Signed Impressions: Service Date/Time: March 17:42 - CONCLUSION: No acute disease. Chago Jara MD Objective Remarks GENERAL: This is a well-nourished, well-developed patient, in no apparent distress. SKIN: Dry itchy skin. Rash on BL LE up to thighs, appears like burros, extremely itchy. Left inner thigh area open lesion, positive erythema, no edema, no drainage noted. CARDIOVASCULAR: Regular rate and rhythm without murmurs, gallops, or rubs. RESPIRATORY: Clear to auscultation. Breath sounds equal bilaterally. No wheezes , rales, or rhonchi. GASTROINTESTINAL: Abdomen soft, non-tender, nondistended. MUSCULOSKELETAL: Extremities without clubbing, cyanosis, or edema. Left arm tremors. NEUROLOGICAL: Awake and alert. Oriented to self. Motor and sensory grossly within normal limits. Normal speech. A/P Problem List: (1) History of dementia ICD Code: Z86.59 Status: Acute (2) Dementia with behavioral disturbance ICD Code: F03.91 Status: Acute (3) Mild dehydration ICD Code: E86.0 Status: Acute (4) Insect bite ICD Code: W57.XXXA Status: Acute Assessment and Plan Patient is a 76-year-old male with primary medical history of hyperlipidemia, dementia, Alzheimer's with aggressive behavior who came in under Thompson act from senior care [facility] secondary to being violent towards fellow patients and staff. He is now admitted to inpatient psychiatry unit for further evaluation. Consulted for medical management, and insect bites. Dementia, Alzheimer's disease with agitation and aggressive behavior - Managed by psychiatry team Skin lesions Possible scabies. treat empirically with permethrin - Chlorhexidine wash daily - Apply bacitracin to the area covered with dry dressing - Benadryl for urticaria/pruritus - Wound care. Check wound cultures. Hyperlipidemia - Continue pravastatin - Check lipid panel in 3 months as an outpatient Left arm tremors, possible generalized tremors - On atenolol 100 mg daily, will decrease dose Atenol 50mg daily with parameters BP decreased with higher dose DVT prop ambulatory Full code discussed with the patient, nurse Problem Qualifiers (1) Dementia with behavioral disturbance: Qualified Code: G30.8 - Alzheimer's dementia with behavioral disturbance, unspecified timing of dementia onset Kavya Portillo MD May 14, 2017 16:33
[2017-05-14] MEDS ORDERED: PERMETHRIN 5% CREAM 60 GM TOPICAL ONE (16:45)
[2017-05-14 17:49] VITALS: BP 145/64; PULSE 86; RESP 18; TEMP 98.2; O2SAT 95
[2017-05-14 18:02] LABS: AUTOMATED NEUTROPHIL # 6.2 TH/MM3 (1.8-7.7); BASOPHIL # 0.1 TH/MM3 (0-0.2); BASOPHIL % 0.9 % (0.0-2.0); EOSINOPHIL # 0.9 TH/MM3 (0-0.4); EOSINOPHIL % 9.6 % (0.0-4.0); HEMATOCRIT 43.9 % (39.0-51.0); HEMO FLAGS DIFF FINAL; LYMPH % 13.6 % (9.0-44.0); LYMPHOCYTE # 1.2 TH/MM3 (1.0-4.8); MEAN CELL VOLUME 82.8 FL (80.0-100.0); MEAN CORPUSCULAR HEMOGLOBIN 28.6 PG (27.0-34.0); MEAN CORPUSCULAR HGB CONC 34.6 % (32.0-36.0); MONO % 6.5 % (0.0-8.0); NEUT % 69.4 % (16.0-70.0); PLATELET COUNT 183 TH/MM3 (150-450); RED CELL DISTRIBUTION WIDTH 14.6 % (11.6-17.2); WHITE BLOOD COUNT 8.9 TH/MM3 (4.0-11.0)
[2017-05-14 18:25] LABS: ALT (GPT) 19 U/L (12-78); ANION GAP 6 MEQ/L (5-15); AST (GOT) 17 U/L (15-37); BICARBONATE 30.9 MEQ/L (21.0-32.0); BLOOD UREA NITROGEN 24 MG/DL (7-18); CHLORIDE 103 MEQ/L (98-107); GLOMERULAR FILTRATION RATE 57 ML/MIN (>89); SODIUM (NA) 140 MEQ/L (136-145)
[2017-05-14 18:27] LABS: ALKALINE PHOSPHATASE 118 U/L (45-117); TOTAL BILIRUBIN ADULT 0.6 MG/DL (0.2-1.0)
[2017-05-14] MEDS: DONEPEZIL HCL 5 MG TAB PO SCH (21:48)
[2017-05-14] MEDS: SULFAMETHOXAZOLE-TRIMETHOPRIM DS 800-160 MG TAB PO SCH (21:48)
[2017-05-14] MEDS: PRAVASTATIN SOD 20 MG TAB PO SCH (21:48)
[2017-05-14] MEDS: QUEtiapine FUMARATE 200 MG TAB PO SCH (21:48)
[2017-05-14] MEDS: TAMSULOSIN HCL 0.4 MG CAP PO SCH (21:48)
[2017-05-14] MEDS: BACITRACIN TOP OINT 15 GM TUBE TOPICAL SCH (22:00)
[2017-05-15 05:56] VITALS: BP 102/50; PULSE 56; RESP 16; TEMP 96.6; O2SAT 94
[2017-05-15] MEDS: ATENOLOL 50 MG TAB PO SCH (08:58)
[2017-05-15] MEDS: risperiDONE 1 MG TAB PO SCH ×2 (12:12→18:21)
[2017-05-15] MEDS: SULFAMETHOXAZOLE-TRIMETHOPRIM DS 800-160 MG TAB PO SCH ×2 (12:12→21:58)
[2017-05-15] MEDS: MEMANTINE HCL 10 MG TAB PO SCH ×2 (12:13→21:57)
[2017-05-15] MEDS: ASPIRIN EC 81 MG TABEC PO SCH (12:13)
[2017-05-15] MEDS: PANTOPRAZOLE SOD 20 MG DELAYED RELEASE TAB PO SCH (12:14)
[2017-05-15] MEDS: HYDROCORTISONE 1% LOTN 120 ML BTL TOPICAL SCH ×3 (13:00→22:00)
[2017-05-15] MEDS: BACITRACIN TOP OINT 15 GM TUBE TOPICAL SCH ×2 (13:00→14:00)
--- NOTE | 2017-05-15 15:14 | HHI.PYPN ---
Subjective Remarks Patient seen in his room with forceps, continues diffusely confused thebehavioral problems. It appears patient has cultured MRSA out of a wound on his left upper medial thigh. Her having a wound consult address this issue Review of Systems Except as stated in HPI: all other systems reviewed are Neg Objective Alert: Yes [place]: Person, Place Mood: Calm Affect: Restricted Memory Intact: Comment (poor) Hallucinations: Other (none) Delusions: No Delusion Type: Other (none) Suicidal: Ideation (unable to determine) Homicidal: Ideation (unable to determine) Insight/Judgment Poor Labs Test 05/14/17 17:30 White Blood Count 8.9 TH/MM3 Red Blood Count 5.30 MIL/MM3 Hemoglobin 15.2 GM/DL Hematocrit 43.9 % Mean Corpuscular Volume 82.8 FL Mean Corpuscular Hemoglobin 28.6 PG Mean Corpuscular Hemoglobin 34.6 % Concent Red Cell Distribution Width 14.6 % Platelet Count 183 TH/MM3 Mean Platelet Volume 9.2 FL Neutrophils (%) (Auto) 69.4 % Lymphocytes (%) (Auto) 13.6 % Monocytes (%) (Auto) 6.5 % Eosinophils (%) (Auto) 9.6 % Basophils (%) (Auto) 0.9 % Neutrophils # (Auto) 6.2 TH/MM3 Lymphocytes # (Auto) 1.2 TH/MM3 Monocytes # (Auto) 0.6 TH/MM3 Eosinophils # (Auto) 0.9 TH/MM3 Basophils # (Auto) 0.1 TH/MM3 CBC Comment DIFF FINAL Differential Comment Sodium Level 140 MEQ/L Potassium Level 4.0 MEQ/L Chloride Level 103 MEQ/L Carbon Dioxide Level 30.9 MEQ/L Anion Gap 6 MEQ/L Blood Urea Nitrogen 24 MG/DL Creatinine 1.23 MG/DL Estimat Glomerular Filtration 57 ML/MIN Rate Random Glucose 96 MG/DL Calcium Level 9.3 MG/DL Total Bilirubin 0.6 MG/DL Aspartate Amino Transf 17 U/L (AST/SGOT) Alanine Aminotransferase 19 U/L (ALT/SGPT) Alkaline Phosphatase 118 U/L Total Protein 7.5 GM/DL Albumin 3.6 GM/DL Date/Time Procedure Status Source Growth 05/14/17 15:30 Gram Stain - Final Resulted Wound Leg 05/14/17 15:30 Wound Culture - Preliminary Resulted S. Aureus Mrsa Strep Not A,B D Vitals/IOs Vital Signs Date Time Temp Pulse Resp B/P Pulse Ox O2 Delivery O2 Flow Rate FiO2 05/15/17 05:56 96.6 56 16 102/50 94 Intake and Output 05/14/17 05/14/17 05/15/17 08:00 16:00 00:00 Intake Total 240 ml 360 ml 240 ml Balance 240 ml 360 ml 240 ml Assessment & Plan Problem List: (1) Dementia with behavioral disturbance ICD Code: F03.91 Assessment & Plan Estimated LOS: days patient continues diffusely confused demented, but no significant behavioral problems. He has though had his wound on his left upper thigh cultured positive for MRSA Justification for Cont. Inpt. At this time patient will decompensate if placed in a lower level of care Discharge Planning To be determined Request HC Surrog/Guard Advoc?: Yes Problem Qualifiers (1) Dementia with behavioral disturbance: Qualified Code: G30.8 - Alzheimer's dementia with behavioral disturbance, unspecified timing of dementia onset Peter Fang MD May 15, 2017 15:14
[2017-05-15] MEDS: MUPIROCIN 2% OINT 22 GM TUBE TOPICAL SCH (17:00)
[2017-05-15] MEDS: COLLAGENASE OINT 30 GM TUBE TOPICAL SCH (17:00)
--- NOTE | 2017-05-15 17:06 | PD.WCN.NOT ---
Wound Consult Description: L thigh wound Communicated with: CESILIA Rosa and Braxton GARZA Recommendation: Please cleanse wound to L inner thigh with normal saline only and apply 50/50 mix of Mupirocin and Santyl ointment to wound bed and cover with slightly moistened fluffed 2x2 gauze pad lightly packed into wound bed. Secure dressing with bordered gauze and change dressing daily. Please apply skin prep before applying adhesive to skin. Additional Information: Patient seen on [facility] 2500 unit for wound to L inner thigh that might need debridement. Patient laying in bed for wound assessment.Wound noted to L inner thigh is open to air. Cleansed wound with normal saline. Wound bed presents with ~50% pale red granulation tissue and ~50% slough. Wound measures 1.9cm x 1.8cm x ~0.8 cm. Wound is not active draining, but has a moist wound bed. Scant sanguinous/ yellow exudate is noted on gauze pad after cleansing that is without odor. Wound culture is positive for MRSA, and Strep not A, B, D. Periwound is noted with erythema circumferentially that extends ~0.3 cm out form wound bed. Induration is assessed in the periwound from 9 to 6 o'clock. Applied bacitracin to saline moistened 2x2 gauze pad and loosely packed into wound bed. Covered with dry 4x4 gauze pad. Skin prep applied before secured dressing with paper tape. Mini Diaz [facility] May 15, 2017 17:06
--- NOTE | 2017-05-15 17:25 | HHI.PR ---
Subjective Remarks Follow-up visit left leg cellulitis, MRSA. Patient seen and examined today. States is doing well. Pain is manageable. Denies fevers, chills, nausea, vomiting, diarrhea. Objective Vitals Vital Signs Date Time Temp Pulse Resp B/P Pulse Ox O2 Delivery O2 Flow Rate FiO2 05/15/17 05:56 96.6 56 16 102/50 94 05/14/17 17:49 98.2 86 18 145/64 95 I/O 05/14/17 05/14/17 05/14/17 05/15/17 05/15/17 05/15/17 07:00 15:00 23:00 07:00 15:00 23:00 Intake Total 600 ml 240 ml 960 ml Balance 600 ml 240 ml 960 ml Intake Oral 600 ml 960 ml Oral Supplement 240 ml # Voids 1 2 1 Result Diagram: 05/14/17172905/14/171729 Objective Remarks GENERAL: This is a well-nourished, well-developed patient, in no apparent distress. SKIN: Warm and dry. Bilateral lower extremity multiple erythematous rash with scratch montez all over. Left thigh wound open, erythematous, edematous surrounding area, wound bed with thick slough HEAD: Normocephalic. No temporal or scalp tenderness. EYES: Pupils equal round and reactive. No scleral icterus. No injection or drainage. ENT: Nose without bleeding. Throat without erythema. Uvula midline. Airway patent. NECK: Trachea midline. No JVD or lymphadenopathy. Supple, nontender, no meningeal signs. CARDIOVASCULAR: Regular rate and rhythm without murmurs, gallops, or rubs. RESPIRATORY: Clear to auscultation. Breath sounds equal bilaterally. No wheezes , rales, or rhonchi. GASTROINTESTINAL: Abdomen soft, non-tender, nondistended. MUSCULOSKELETAL: Extremities without clubbing, cyanosis, or edema. Left arm tremors. NEUROLOGICAL: Awake and alert. Oriented to self, place. Motor and sensory grossly within normal limits. Normal speech. A/P Problem List: (1) History of dementia ICD Code: Z86.59 Status: Acute (2) Dementia with behavioral disturbance ICD Code: F03.91 Status: Acute (3) Mild dehydration ICD Code: E86.0 Status: Acute (4) Insect bite ICD Code: W57.XXXA Status: Acute Assessment and Plan Patient is a 76-year-old male with primary medical history of hyperlipidemia, dementia, Alzheimer's with aggressive behavior who came in under Thompson act from long-term [facility] secondary to being violent towards fellow patients and staff. He is now admitted to inpatient psychiatry unit for further evaluation. Consulted for medical management, and insect bites. Dementia, Alzheimer's disease with agitation and aggressive behavior - Managed by psychiatry team Left leg cellulitis - Wound culture came back staph aureus MRSA, strep not A, B D - Patient was started on Bactrim, will continue. Follow-up sensitivity - Spoke with wound care nurse, wound care recommendation would be 50% percentile 50% mupirocin to be applied on the wound, performed debridement - Continue to monitor. Contact isolation - Add Lactinex Skin lesions, rash bilateral lower extremity Possible scabies, treated empirically with permethrin - Atarax when necessary - Hydrocortisone twice a day Hyperlipidemia - Continue pravastatin - Check lipid panel in 3 months as an outpatient Left arm tremors, possible generalized tremors - Atenol 50mg daily with parameters DVT prop ambulatory Full code Discussed with patient, nursing, Dr. Portillo Problem Qualifiers (1) Dementia with behavioral disturbance: Qualified Code: G30.8 - Alzheimer's dementia with behavioral disturbance, unspecified timing of dementia onset Laura Clayton May 15, 2017 17:25
[2017-05-15 17:36] VITALS: BP 109/59; PULSE 70; RESP 18; TEMP 98.7; O2SAT 100
[2017-05-15] MEDS: PRAVASTATIN SOD 20 MG TAB PO SCH (21:58)
[2017-05-15] MEDS: DONEPEZIL HCL 5 MG TAB PO SCH (21:58)
[2017-05-15] MEDS: TAMSULOSIN HCL 0.4 MG CAP PO SCH (21:58)
[2017-05-15] MEDS: LACTOBACILLUS ACIDOPHILUS TAB PO SCH (21:58)
[2017-05-15] MEDS: QUEtiapine FUMARATE 200 MG TAB PO SCH (21:58)
[2017-05-16] MEDS: HYDROCORTISONE 1% LOTN 120 ML BTL TOPICAL SCH ×3 (06:00→21:10)
[2017-05-16 07:20] VITALS: BP 123/60; PULSE 62; RESP 17; TEMP 98.1; O2SAT 97
[2017-05-16] MEDS: ATENOLOL 50 MG TAB PO SCH (09:00)
[2017-05-16] MEDS: COLLAGENASE OINT 30 GM TUBE TOPICAL SCH (09:00)
[2017-05-16] MEDS: MUPIROCIN 2% OINT 22 GM TUBE TOPICAL SCH (09:00)
[2017-05-16] MEDS: ASPIRIN EC 81 MG TABEC PO SCH (09:00)
[2017-05-16] MEDS: PANTOPRAZOLE SOD 20 MG DELAYED RELEASE TAB PO SCH (09:00)
[2017-05-16] MEDS: LACTOBACILLUS ACIDOPHILUS TAB PO SCH ×2 (09:00→21:09)
[2017-05-16] MEDS: risperiDONE 1 MG TAB PO SCH ×2 (09:00→18:00)
[2017-05-16] MEDS: MEMANTINE HCL 10 MG TAB PO SCH ×2 (09:00→21:09)
[2017-05-16] MEDS: SULFAMETHOXAZOLE-TRIMETHOPRIM DS 800-160 MG TAB PO SCH ×2 (09:00→21:09)
--- NOTE | 2017-05-16 14:05 | HHI.PYPN ---
Subjective Remarks Pt seen and discussed with staff. He has been compliant with meds and cooperative with care. No behavioral problems on unit. He reports that he is in a good mood and denies pain or discomfort. No SI/HI Objective Alert: Yes [place]: Person, Place Mood: Calm Affect: Restricted Memory Intact: Comment (poor) Hallucinations: Other (none) Delusions: No Delusion Type: Other (none) Suicidal: Ideation (unable to determine) Homicidal: Ideation (unable to determine) Insight/Judgment poor Labs Date/Time Procedure Status Source Growth 05/14/17 15:30 Gram Stain - Final Complete Wound Leg 05/14/17 15:30 Wound Culture - Final Complete S. Aureus Mrsa Strep Not A,B D Vitals/IOs Vital Signs Date Time Temp Pulse Resp B/P Pulse Ox O2 Delivery O2 Flow Rate FiO2 05/16/17 07:20 98.1 62 17 123/60 97 Intake and Output 05/15/17 05/15/17 05/15/17 07:59 15:59 23:59 Intake Total 960 ml 600 ml Balance 960 ml 600 ml Assessment & Plan Problem List: (1) Dementia with behavioral disturbance ICD Code: F03.91 Assessment & Plan Continue current tx plan. Estimated LOS: days Justification for Cont. Inpt. risk of decompensation Request HC Surrog/Guard Advoc?: Yes Problem Qualifiers (1) Dementia with behavioral disturbance: Qualified Code: G30.8 - Alzheimer's dementia with behavioral disturbance, unspecified timing of dementia onset Jennifer Durham MD May 16, 2017 14:05
--- NOTE | 2017-05-16 15:31 | HHI.PR ---
Subjective Remarks In bed. Says rash is improving. Says she is not feeling itchy anymore. No fever or chills. No n/v/d/c. Eating well. Objective Vitals Vital Signs Date Time Temp Pulse Resp B/P Pulse Ox O2 Delivery O2 Flow Rate FiO2 05/16/17 07:20 98.1 62 17 123/60 97 05/15/17 17:36 98.7 70 18 109/59 100 I/O 05/15/17 05/15/17 05/15/17 05/16/17 05/16/17 05/16/17 07:00 15:00 23:00 07:00 15:00 23:00 Intake Total 960 ml 600 ml 120 ml 240 ml Balance 960 ml 600 ml 120 ml 240 ml Intake Oral 960 ml 600 ml 120 ml 240 ml # Voids 2 1 1 1 Result Diagram: 05/14/17172905/14/171729 Imaging Last Impressions Head CT 04/09/171732 Signed Impressions: Service Date/Time: March 18:11 - CONCLUSION: Negative noncontrast CT. Chago Jara MD Chest X-Ray 04/09/171732 Signed Impressions: Service Date/Time: March 17:42 - CONCLUSION: No acute disease. Chago Jara MD Objective Remarks GENERAL: This is a well-nourished, well-developed patient, in no apparent distress. SKIN: Dry itchy skin. Rash on BL LE up to thighs, excoriations noted. Left inner thigh area open lesion, positive erythema, no edema, no drainage noted. CARDIOVASCULAR: Regular rate and rhythm without murmurs, gallops, or rubs. RESPIRATORY: Clear to auscultation. Breath sounds equal bilaterally. No wheezes , rales, or rhonchi. GASTROINTESTINAL: Abdomen soft, non-tender, nondistended. MUSCULOSKELETAL: Extremities without clubbing, cyanosis, or edema. Left arm tremors. NEUROLOGICAL: Awake and alert. Oriented to self. Motor and sensory grossly within normal limits. Normal speech. A/P Problem List: (1) History of dementia ICD Code: Z86.59 Status: Acute (2) Dementia with behavioral disturbance ICD Code: F03.91 Status: Acute (3) Mild dehydration ICD Code: E86.0 Status: Acute (4) Insect bite ICD Code: W57.XXXA Status: Acute Assessment and Plan Patient is a 76-year-old male with primary medical history of hyperlipidemia, dementia, Alzheimer's with aggressive behavior who came in under Thompson act from sn[facility] secondary to being violent towards fellow patients and staff. He is now admitted to inpatient psychiatry unit for further evaluation. Consulted for medical management, and insect bites. Dementia, Alzheimer's disease with agitation and aggressive behavior Managed by psychiatry team Left leg cellulitis Wound culture came back staph aureus MRSA, strep not A, B D Appreciate wound care nurse, wound care recommendation would be 50% percentile 50% mupirocin to be applied on the wound, also s./p performed debridement Continue to monitor. Contact isolation Add Lactinex Skin lesions, rash bilateral lower extremity - Possible scabies, treated empirically with permethrin Atarax when necessary Hydrocortisone twice a day Resolving. Itching subsided Hyperlipidemia Continue pravastatin Check lipid panel in 3 months as an outpatient Left arm tremors, possible generalized tremors Atenol 50mg daily with parameters DVT prop ambulatory Full code Discussed with patient, nurse Problem Qualifiers (1) Dementia with behavioral disturbance: Qualified Code: G30.8 - Alzheimer's dementia with behavioral disturbance, unspecified timing of dementia onset Kavya Portillo MD May 16, 2017 15:31
[2017-05-16 18:00] VITALS: BP 99/53; PULSE 51; RESP 18; TEMP 98.2; O2SAT 98
[2017-05-16] MEDS: DONEPEZIL HCL 5 MG TAB PO SCH (21:09)
[2017-05-16] MEDS: TAMSULOSIN HCL 0.4 MG CAP PO SCH (21:09)
[2017-05-16] MEDS: QUEtiapine FUMARATE 200 MG TAB PO SCH (21:09)
[2017-05-16] MEDS: PRAVASTATIN SOD 20 MG TAB PO SCH (21:10)
[2017-05-16] MEDS: LORazepam 1 MG TAB PO PRN (22:29)
[2017-05-17 06:00] VITALS: BP 119/59; PULSE 87; RESP 17; TEMP 97.6; O2SAT 95
[2017-05-17] MEDS: HYDROCORTISONE 1% LOTN 120 ML BTL TOPICAL SCH ×3 (06:03→21:27)
[2017-05-17] MEDS: MEMANTINE HCL 10 MG TAB PO SCH ×2 (08:17→21:26)
[2017-05-17] MEDS: ATENOLOL 50 MG TAB PO SCH (08:17)
[2017-05-17] MEDS: SULFAMETHOXAZOLE-TRIMETHOPRIM DS 800-160 MG TAB PO SCH ×2 (08:17→21:26)
[2017-05-17] MEDS: ASPIRIN EC 81 MG TABEC PO SCH (08:17)
[2017-05-17] MEDS: LACTOBACILLUS ACIDOPHILUS TAB PO SCH ×2 (08:17→21:26)
[2017-05-17] MEDS: PANTOPRAZOLE SOD 20 MG DELAYED RELEASE TAB PO SCH (08:18)
[2017-05-17] MEDS: COLLAGENASE OINT 30 GM TUBE TOPICAL SCH (08:18)
[2017-05-17] MEDS: MUPIROCIN 2% OINT 22 GM TUBE TOPICAL SCH (08:19)
[2017-05-17] MEDS: risperiDONE 1 MG TAB PO SCH ×2 (09:23→17:55)
--- NOTE | 2017-05-17 17:15 | HHI.PYPN ---
Subjective Remarks Pt seen and discussed with staff. Pt has been wandering into other rooms and laying on beds, but staff report that he is cooperative and pleasant with redirection. Poor sleep last night. No aggression or agitation. He denies pain or discomfort. Mood is euthymic. Objective Alert: Yes [place]: Person, Place Mood: Calm Affect: Restricted Memory Intact: Comment (poor) Hallucinations: Other (none) Delusions: No Delusion Type: Other (none) Suicidal: Ideation (unable to determine) Homicidal: Ideation (unable to determine) Insight/Judgment poor Labs Date/Time Procedure Status Source Growth 05/14/17 15:30 Gram Stain - Final Complete Wound Leg 05/14/17 15:30 Wound Culture - Final Complete S. Aureus Mrsa Strep Not A,B D Vitals/IOs Vital Signs Date Time Temp Pulse Resp B/P Pulse Ox O2 Delivery O2 Flow Rate FiO2 05/17/17 06:00 97.6 87 17 119/59 95 Intake and Output 05/16/17 05/16/17 05/17/17 08:00 16:00 00:00 Intake Total 360 ml 840 ml Balance 360 ml 840 ml Assessment & Plan Problem List: (1) Dementia with behavioral disturbance ICD Code: F03.91 Assessment & Plan Continue current tx plan. Estimated LOS: days Justification for Cont. Inpt. risk of decompensation Request HC Surrog/Guard Advoc?: Yes Problem Qualifiers (1) Dementia with behavioral disturbance: Qualified Code: G30.8 - Alzheimer's dementia with behavioral disturbance, unspecified timing of dementia onset Jennifer Durham MD May 17, 2017 17:15
--- NOTE | 2017-05-17 17:50 | HHI.PR ---
Subjective Remarks At the margin of the bed. Denies chest pain, sob, n/v/d/c. No fever or chills. Patient says skin is not itchy, wound at the tight is healing. There is no draining. He is ambulating without problems. Objective Vitals Vital Signs Date Time Temp Pulse Resp B/P Pulse Ox O2 Delivery O2 Flow Rate FiO2 05/17/17 06:00 97.6 87 17 119/59 95 05/16/17 18:00 98.2 51 18 99/53 98 I/O 05/16/17 05/16/17 05/16/17 05/17/17 05/17/17 05/17/17 06:59 14:59 22:59 06:59 14:59 22:59 Intake Total 120 ml 240 ml 840 ml 360 ml 480 ml Balance 120 ml 240 ml 840 ml 360 ml 480 ml Intake Oral 120 ml 240 ml 840 ml 360 ml Oral Supplement 480 ml # Voids 1 1 2 Result Diagram: 05/14/17172905/14/171729 Imaging Last Impressions Head CT 04/09/171732 Signed Impressions: Service Date/Time: March 18:11 - CONCLUSION: Negative noncontrast CT. Chago Jara MD Chest X-Ray 04/09/171732 Signed Impressions: Service Date/Time: March 17:42 - CONCLUSION: No acute disease. Chago Jara MD Objective Remarks GENERAL: This is a well-nourished, well-developed patient, in no apparent distress. SKIN: Dry itchy skin. Rash on BL LE up to thighs, excoriations noted. Left inner thigh area open lesion, positive erythema, no edema, no drainage noted. CARDIOVASCULAR: Regular rate and rhythm without murmurs, gallops, or rubs. RESPIRATORY: Clear to auscultation. Breath sounds equal bilaterally. No wheezes , rales, or rhonchi. GASTROINTESTINAL: Abdomen soft, non-tender, nondistended. MUSCULOSKELETAL: Extremities without clubbing, cyanosis, or edema. Left arm tremors. NEUROLOGICAL: Awake and alert. Oriented to self. Motor and sensory grossly within normal limits. Normal speech. A/P Problem List: (1) History of dementia ICD Code: Z86.59 Status: Acute (2) Dementia with behavioral disturbance ICD Code: F03.91 Status: Acute (3) Mild dehydration ICD Code: E86.0 Status: Acute (4) Insect bite ICD Code: W57.XXXA Status: Acute Assessment and Plan Patient is a 76-year-old male with primary medical history of hyperlipidemia, dementia, Alzheimer's with aggressive behavior who came in under Thompson act from [facility] secondary to being violent towards fellow patients and staff. He is now admitted to inpatient psychiatry unit for further evaluation. Consulted for medical management, and insect bites. Dementia, Alzheimer's disease with agitation and aggressive behavior Managed by psychiatry team Left leg cellulitis Wound culture came back staph aureus MRSA, strep not A, B D Appreciate wound care nurse, wound care recommendation would be 50% percentile 50% mupirocin to be applied on the wound, also s./p performed debridement Continue to monitor. Contact isolation Add Lactinex Skin lesions, rash bilateral lower extremity - Possible scabies, treated empirically with permethrin Atarax when necessary Hydrocortisone twice a day Resolving. Itching subsided Hyperlipidemia Continue pravastatin Check lipid panel in 3 months as an outpatient Left arm tremors, possible generalized tremors Atenol 50mg daily with parameters DVT prop ambulatory Full code Discussed with patient, nurse Problem Qualifiers (1) Dementia with behavioral disturbance: Qualified Code: G30.8 - Alzheimer's dementia with behavioral disturbance, unspecified timing of dementia onset Kavya Portillo MD May 17, 2017 17:50
[2017-05-17] MEDS: LORazepam 1 MG TAB PO PRN (17:56)
[2017-05-17 18:29] VITALS: BP 138/66; PULSE 59; RESP 17; TEMP 98.2; O2SAT 98
[2017-05-17] MEDS: PRAVASTATIN SOD 20 MG TAB PO SCH (21:26)
[2017-05-17] MEDS: TAMSULOSIN HCL 0.4 MG CAP PO SCH (21:26)
[2017-05-17] MEDS: QUEtiapine FUMARATE 200 MG TAB PO SCH (21:26)
[2017-05-17] MEDS: DONEPEZIL HCL 5 MG TAB PO SCH (21:26)
[2017-05-18] MEDS: HYDROCORTISONE 1% LOTN 120 ML BTL TOPICAL SCH ×3 (06:04→21:34)
[2017-05-18 07:01] VITALS: BP 124/56; PULSE 58; TEMP 98.3; O2SAT 95
[2017-05-18 08:07] LABS: HEMATOCRIT 41.6 % (39.0-51.0); MEAN CELL VOLUME 82.8 FL (80.0-100.0); MEAN CORPUSCULAR HEMOGLOBIN 28.8 PG (27.0-34.0); MEAN CORPUSCULAR HGB CONC 34.8 % (32.0-36.0); PLATELET COUNT 151 TH/MM3 (150-450); RED BLOOD COUNT 5.02 MIL/MM3 (4.50-5.90); RED CELL DISTRIBUTION WIDTH 14.3 % (11.6-17.2); REVIEW FLAG FINAL; WHITE BLOOD COUNT 8.8 TH/MM3 (4.0-11.0)
[2017-05-18 08:33] LABS: BICARBONATE 22.3 MEQ/L (21.0-32.0); POTASSIUM 4.1 MEQ/L (3.5-5.1)
[2017-05-18] MEDS: MEMANTINE HCL 10 MG TAB PO SCH ×2 (08:38→21:34)
[2017-05-18] MEDS: ATENOLOL 50 MG TAB PO SCH (08:39)
[2017-05-18] MEDS: PANTOPRAZOLE SOD 20 MG DELAYED RELEASE TAB PO SCH (08:39)
[2017-05-18] MEDS: ASPIRIN EC 81 MG TABEC PO SCH (08:39)
[2017-05-18] MEDS: SULFAMETHOXAZOLE-TRIMETHOPRIM DS 800-160 MG TAB PO SCH ×2 (08:39→21:34)
[2017-05-18] MEDS: LACTOBACILLUS ACIDOPHILUS TAB PO SCH ×2 (08:39→21:34)
[2017-05-18] MEDS: risperiDONE 1 MG TAB PO SCH ×2 (08:42→18:00)
[2017-05-18] MEDS: COLLAGENASE OINT 30 GM TUBE TOPICAL SCH (08:43)
[2017-05-18] MEDS: MUPIROCIN 2% OINT 22 GM TUBE TOPICAL SCH (09:00)
--- NOTE | 2017-05-18 10:57 | PD.TTN ---
Present for Treatment Team Treatment Team Staff: Provider (Dr Fang), Psych Therapist (Sharlene ), Occupational Therapist (Tara) Patient Problems 1. Discharge planning 2. Medication compliance 3. Knowledge deficit 4. Lack of coping skills Progress Toward Goals Provider Input: Pt needs merca treated and then placement Nurse Input: cooperative Psych Therapist Input: remians in room on isolaition no behaviroal problem reported s/w daughter and she would like [facility] as [facility] working on referrals Occupational Therapist Input: Not coming to groups at this time Sharlene Spence STUDENT LIAISON OFFICER May 18, 2017 10:57
--- NOTE | 2017-05-18 14:34 | HHI.PYPN ---
Subjective Remarks Patient seen in his room with nurse Mark and medical student Siena. Chart review. Patient compliant medication. Patient coping well with the isolation related to his MRSA infection. He continues calm pleasantly confused. Review of Systems Except as stated in HPI: all other systems reviewed are Neg Objective Alert: Yes [place]: Person, Place Mood: Calm Affect: Restricted Memory Intact: Comment (poor) Hallucinations: Other (none) Delusions: No Delusion Type: Other (none) Suicidal: Ideation (unable to determine) Homicidal: Ideation (unable to determine) Insight/Judgment Very poor Labs Test 05/18/17 06:44 White Blood Count 8.8 TH/MM3 Red Blood Count 5.02 MIL/MM3 Hemoglobin 14.5 GM/DL Hematocrit 41.6 % Mean Corpuscular Volume 82.8 FL Mean Corpuscular Hemoglobin 28.8 PG Mean Corpuscular Hemoglobin 34.8 % Concent Red Cell Distribution Width 14.3 % Platelet Count 151 TH/MM3 Mean Platelet Volume 9.1 FL Sodium Level 136 MEQ/L Potassium Level 4.1 MEQ/L Chloride Level 103 MEQ/L Carbon Dioxide Level 22.3 MEQ/L Anion Gap 11 MEQ/L Blood Urea Nitrogen 26 MG/DL Creatinine 1.09 MG/DL Estimat Glomerular Filtration 66 ML/MIN Rate Random Glucose 87 MG/DL Calcium Level 9.1 MG/DL Date/Time Procedure Status Source Growth 05/14/17 15:30 Gram Stain - Final Complete Wound Leg 05/14/17 15:30 Wound Culture - Final Complete S. Aureus Mrsa Strep Not A,B D Vitals/IOs Vital Signs Date Time Temp Pulse Resp B/P Pulse Ox O2 Delivery O2 Flow Rate FiO2 05/18/17 07:01 98.3 58 124/56 95 05/17/17 18:29 17 Intake and Output 05/17/17 05/17/17 05/17/17 07:59 15:59 23:59 Intake Total 360 ml 1200 ml Balance 360 ml 1200 ml Assessment & Plan Problem List: (1) Dementia with behavioral disturbance ICD Code: F03.91 Assessment & Plan Estimated LOS: days patient continues confused demented though no behavioral problems. Continues to cope well with the isolation related to his MRSA Justification for Cont. Inpt. At this time patient will decompensate placed in a lower level of care Discharge Planning To be determined Request HC Surrog/Guard Advoc?: Yes Problem Qualifiers (1) Dementia with behavioral disturbance: Qualified Code: G30.8 - Alzheimer's dementia with behavioral disturbance, unspecified timing of dementia onset Peter Fang MD May 18, 2017 14:34
[2017-05-18 18:26] VITALS: BP 110/63; PULSE 58; RESP 19; TEMP 98.2; O2SAT 94
[2017-05-18] MEDS: TAMSULOSIN HCL 0.4 MG CAP PO SCH (21:34)
[2017-05-18] MEDS: QUEtiapine FUMARATE 200 MG TAB PO SCH (21:34)
[2017-05-18] MEDS: DONEPEZIL HCL 5 MG TAB PO SCH (21:34)
[2017-05-18] MEDS: PRAVASTATIN SOD 20 MG TAB PO SCH (21:34)
[2017-05-19 05:34] VITALS: BP 90/63; PULSE 74; RESP 16; TEMP 97.4; O2SAT 97
[2017-05-19] MEDS: HYDROCORTISONE 1% LOTN 120 ML BTL TOPICAL SCH ×3 (06:13→22:00)
[2017-05-19] MEDS: risperiDONE 1 MG TAB PO SCH ×2 (08:55→17:28)
[2017-05-19] MEDS: PANTOPRAZOLE SOD 20 MG DELAYED RELEASE TAB PO SCH (08:55)
[2017-05-19] MEDS: SULFAMETHOXAZOLE-TRIMETHOPRIM DS 800-160 MG TAB PO SCH ×2 (08:56→21:02)
[2017-05-19] MEDS: ASPIRIN EC 81 MG TABEC PO SCH (08:56)
[2017-05-19] MEDS: LACTOBACILLUS ACIDOPHILUS TAB PO SCH ×2 (08:56→21:01)
[2017-05-19] MEDS: MEMANTINE HCL 10 MG TAB PO SCH ×2 (08:56→21:02)
[2017-05-19] MEDS: ATENOLOL 50 MG TAB PO SCH (08:57)
[2017-05-19] MEDS: MUPIROCIN 2% OINT 22 GM TUBE TOPICAL SCH (09:00)
[2017-05-19] MEDS: COLLAGENASE OINT 30 GM TUBE TOPICAL SCH (09:00)
--- NOTE | 2017-05-19 11:40 | HHI.PYPN ---
Subjective Remarks Patient seen in his room with medical student Siena, patient calm cooperative continues diffusely confused but no behavioral issues. Now continue treatment Review of Systems Except as stated in HPI: all other systems reviewed are Neg Objective Alert: Yes [place]: Person, Place Mood: Calm Affect: Restricted Memory Intact: Comment (poor) Hallucinations: Other (none) Delusions: No Delusion Type: Other (none) Suicidal: Ideation (unable to determine) Homicidal: Ideation (unable to determine) Insight/Judgment Very poor Labs Date/Time Procedure Status Source Growth 05/14/17 15:30 Gram Stain - Final Complete Wound Leg 05/14/17 15:30 Wound Culture - Final Complete S. Aureus Mrsa Strep Not A,B D Vitals/IOs Vital Signs Date Time Temp Pulse Resp B/P Pulse Ox O2 Delivery O2 Flow Rate FiO2 05/19/17 05:34 97.4 74 16 90/63 97 Intake and Output 05/18/17 05/18/17 05/18/17 07:59 15:59 23:59 Intake Total 480 ml 1440 ml Balance 480 ml 1440 ml Assessment & Plan Problem List: (1) Dementia with behavioral disturbance ICD Code: F03.91 Assessment & Plan Estimated LOS: days patient continues confused demented the no behavioral problems. For now continue treatment. Justification for Cont. Inpt. At this time patient may decompensate if not placed in an appropriate level of care Discharge Planning To be determined Request HC Surrog/Guard Advoc?: Yes Problem Qualifiers (1) Dementia with behavioral disturbance: Qualified Code: G30.8 - Alzheimer's dementia with behavioral disturbance, unspecified timing of dementia onset Peter Fang MD May 19, 2017 11:40
[2017-05-19 19:33] VITALS: BP 140/63; PULSE 68; RESP 18; TEMP 98.4; O2SAT 97
[2017-05-19] MEDS: PRAVASTATIN SOD 20 MG TAB PO SCH (21:02)
[2017-05-19] MEDS: QUEtiapine FUMARATE 200 MG TAB PO SCH (21:02)
[2017-05-19] MEDS: TAMSULOSIN HCL 0.4 MG CAP PO SCH (21:02)
[2017-05-19] MEDS: DONEPEZIL HCL 5 MG TAB PO SCH (21:02)
[2017-05-20 04:51] VITALS: BP 112/58; PULSE 65; RESP 16; TEMP 97.7; O2SAT 96
[2017-05-20] MEDS: HYDROCORTISONE 1% LOTN 120 ML BTL TOPICAL SCH ×3 (06:00→21:35)
[2017-05-20] MEDS: risperiDONE 1 MG TAB PO SCH ×2 (08:00→17:08)
[2017-05-20] MEDS: LACTOBACILLUS ACIDOPHILUS TAB PO SCH ×2 (08:55→21:35)
[2017-05-20] MEDS: ASPIRIN EC 81 MG TABEC PO SCH (08:55)
[2017-05-20] MEDS: SULFAMETHOXAZOLE-TRIMETHOPRIM DS 800-160 MG TAB PO SCH ×2 (08:55→21:35)
[2017-05-20] MEDS: MEMANTINE HCL 10 MG TAB PO SCH ×2 (08:55→21:35)
[2017-05-20] MEDS: PANTOPRAZOLE SOD 20 MG DELAYED RELEASE TAB PO SCH (08:56)
[2017-05-20] MEDS: ATENOLOL 50 MG TAB PO SCH (08:57)
[2017-05-20] MEDS: COLLAGENASE OINT 30 GM TUBE TOPICAL SCH (09:00)
[2017-05-20] MEDS: MUPIROCIN 2% OINT 22 GM TUBE TOPICAL SCH (09:00)
--- NOTE | 2017-05-20 15:48 | HHI.PYPN ---
Subjective Remarks Patient seen in his room with nurse Katherine, chart reviewed. Patient coping with isolation needed related to his MRSA, compliant medications. He continues to isolate confused with no behavioral problems Review of Systems Except as stated in HPI: all other systems reviewed are Neg Objective Alert: Yes [place]: Person, Place Mood: Calm Affect: Restricted Memory Intact: Comment (poor) Hallucinations: Other (none) Delusions: No Delusion Type: Other (none) Suicidal: Ideation (unable to determine) Homicidal: Ideation (unable to determine) Insight/Judgment Very poor Vitals/IOs Vital Signs Date Time Temp Pulse Resp B/P Pulse Ox O2 Delivery O2 Flow Rate FiO2 05/20/17 04:51 97.7 65 16 112/58 96 Intake and Output 05/19/17 05/19/17 05/19/17 07:59 15:59 23:59 Intake Total 840 ml 1080 ml Balance 840 ml 1080 ml Assessment & Plan Problem List: (1) Dementia with behavioral disturbance ICD Code: F03.91 Assessment & Plan Estimated LOS: days patient continues demented confuse the no behavior problems. He is coping with the isolation Justification for Cont. Inpt. At this time patient will decompensate if placed in a lower level of care Request HC Surrog/Guard Advoc?: Yes Problem Qualifiers (1) Dementia with behavioral disturbance: Qualified Code: G30.8 - Alzheimer's dementia with behavioral disturbance, unspecified timing of dementia onset Peter Fang MD May 20, 2017 15:48
--- NOTE | 2017-05-20 17:43 | HHI.PR ---
Subjective Remarks Follow-up on patient with left leg cellulitis and recent scabies infection. Patient seen and examined today. Patient sleeping but easily awakens to voice. Patient states he feels good. He denies any acute complaints at all. Denies any fever or chills. Denies any itching or rash. Denies any chest pain or shortness of breath. Denies any nausea, vomiting or abdominal pain. Objective Vitals Vital Signs Date Time Temp Pulse Resp B/P Pulse Ox O2 Delivery O2 Flow Rate FiO2 05/20/17 04:51 97.7 65 16 112/58 96 05/19/17 19:33 98.4 68 18 140/63 97 I/O 05/19/17 05/19/17 05/19/17 05/20/17 05/20/17 05/20/17 07:00 15:00 23:00 07:00 15:00 23:00 Intake Total 840 ml 1080 ml 480 ml Balance 840 ml 1080 ml 480 ml Intake Oral 840 ml 1080 ml 480 ml # Voids 2 1 1 Result Diagram: 05/18/17 0644 05/18/17 0644 Imaging Last Impressions Head CT 04/09/171732 Signed Impressions: Service Date/Time: March 18:11 - CONCLUSION: Negative noncontrast CT. Chago Jara MD Chest X-Ray 04/09/171732 Signed Impressions: Service Date/Time: March 17:42 - CONCLUSION: No acute disease. Chago Jara MD Objective Remarks GENERAL: This is a well-nourished, well-developed patient, in no apparent distress. Awake and alert. SKIN: Dry itchy skin. Rash improved. Wound left inner thigh dressed. Dressing C/D/I. CARDIOVASCULAR: Regular rate and rhythm without murmurs, gallops, or rubs. RESPIRATORY: Clear to auscultation. Breath sounds equal bilaterally. No wheezes , rales, or rhonchi. GASTROINTESTINAL: Abdomen soft, non-tender, nondistended. MUSCULOSKELETAL: Extremities without clubbing, cyanosis, or edema. No tremors appreciated. NEUROLOGICAL: Awake and alert. Oriented to self. Motor and sensory grossly within normal limits. Normal speech. Medications and IVs Current Medications Medications (Trade) Dose Ordered Sig/Janine Route Start Time Stop Time Status Last Admin (Tylenol) 650 mg Q4H PRN PO 04/10/17 11:45 05/17/17 17:55 (Milk Of Magnesia Liq) 30 ml DAILY PRN PO 04/10/17 11:45 (Mag-Al Plus Susp Liq) 30 ml Q6H PRN PO 04/10/17 11:45 (Ecotrin Ec) 81 mg DAILY PO 04/11/17 11:00 05/20/17 08:55 (Aricept) 10 mg HS PO 04/11/17 21:00 05/19/17 21:02 (Pravachol) 20 mg HS PO 04/11/17 21:00 05/19/17 21:02 (Flomax) 0.4 mg HS PO 04/11/17 21:00 05/19/17 21:02 (Namenda) 10 mg BID PO 04/11/17 11:00 05/20/17 08:55 (Protonix) 20 mg DAILY PO 04/11/17 11:00 05/20/17 08:56 (Tenormin) 50 mg DAILY PO 04/18/17 09:00 05/20/17 08:57 (Ativan) 1 mg Q8H PRN PO 04/19/17 01:15 05/17/17 17:56 (Ativan Inj) 1 mg Q8H PRN IM 04/19/17 01:15 (risperDAL) 1 mg DAILY@08,18 PO 04/30/17 18:00 05/20/17 17:08 (SEROquel) 400 mg HS PO 05/04/17 21:00 05/19/17 21:02 (Atarax) 25 mg Q8H PRN PO 05/14/17 07:45 (Hydrocortisone 1% Lotion) 1 applic Q8HR TOPICAL 05/14/17 07:45 05/20/17 14:00 (Bactrim Ds 800-160 Mg) 1 tab Q12HR PO 05/14/17 21:00 05/28/17 20:59 05/20/17 08:55 (Santyl Oint) 1 applic DAILY TOPICAL 05/15/17 17:00 05/20/17 09:00 (Bactroban 2% Oint) 1 applic DAILY TOPICAL 05/15/17 17:00 05/20/17 09:00 (Lactinex) 1 tab Q12HR PO 05/15/17 21:00 05/29/17 20:59 05/20/17 08:55 A/P Problem List: (1) History of dementia ICD Code: Z86.59 Status: Acute (2) Dementia with behavioral disturbance ICD Code: F03.91 Status: Acute (3) Mild dehydration ICD Code: E86.0 Status: Acute (4) Insect bite ICD Code: W57.XXXA Status: Acute Assessment and Plan Patient is a 76-year-old male with primary medical history of hyperlipidemia, dementia, Alzheimer's with aggressive behavior who came in under Thompson act from [facility] secondary to being violent towards fellow patients and staff. He is now admitted to inpatient psychiatry unit for further evaluation. Consulted for medical management, and insect bites. Dementia, Alzheimer's disease with agitation and aggressive behavior Managed by psychiatry team Left leg cellulitis Wound culture came back staph aureus MRSA, strep not A, B D Appreciate wound care nurse, wound care recommendation - Please cleanse wound to L inner thigh with normal saline only and apply 50/50 mix of Mupirocin and Santyl ointment to wound bed and cover with slightly moistened fluffed 2x2 gauze pad lightly packed into wound bed. Secure dressing with bordered gauze and change dressing daily. Continue to monitor. Contact isolation Continue Lactinex Skin lesions, rash bilateral lower extremity - Possible scabies, treated empirically with permethrin Atarax when necessary Hydrocortisone twice a day Resolving. Itching subsided Hyperlipidemia Continue pravastatin Check lipid panel in 3 months as an outpatient Left arm tremors, possible generalized tremors Improved Atenol 50mg daily with parameters DVT prop ambulatory Full code Discussed with patient, nursing staff and Dr. Portillo Patient is medically cleared for discharge. Problem Qualifiers (1) Dementia with behavioral disturbance: Qualified Code: G30.8 - Alzheimer's dementia with behavioral disturbance, unspecified timing of dementia onset Rena Grover May 20, 2017 17:43
[2017-05-20 18:00] VITALS: BP 118/76; PULSE 57; RESP 16; TEMP 98; O2SAT 95
[2017-05-20] MEDS: QUEtiapine FUMARATE 200 MG TAB PO SCH (21:35)
[2017-05-20] MEDS: DONEPEZIL HCL 5 MG TAB PO SCH (21:35)
[2017-05-20] MEDS: PRAVASTATIN SOD 20 MG TAB PO SCH (21:35)
[2017-05-20] MEDS: TAMSULOSIN HCL 0.4 MG CAP PO SCH (21:35)
[2017-05-21] MEDS: HYDROCORTISONE 1% LOTN 120 ML BTL TOPICAL SCH (05:41)
[2017-05-21 06:00] VITALS: BP 104/70; PULSE 80; RESP 16; TEMP 96.9; O2SAT 99
[2017-05-21] MEDS: risperiDONE 1 MG TAB PO SCH (08:00)
[2017-05-21] MEDS: SULFAMETHOXAZOLE-TRIMETHOPRIM DS 800-160 MG TAB PO SCH (09:00)
[2017-05-21] MEDS: ASPIRIN EC 81 MG TABEC PO SCH (09:00)
[2017-05-21] MEDS: PANTOPRAZOLE SOD 20 MG DELAYED RELEASE TAB PO SCH (09:00)
[2017-05-21] MEDS: LACTOBACILLUS ACIDOPHILUS TAB PO SCH (09:00)
[2017-05-21] MEDS: COLLAGENASE OINT 30 GM TUBE TOPICAL SCH (09:00)
[2017-05-21] MEDS: MEMANTINE HCL 10 MG TAB PO SCH (09:00)
[2017-05-21] MEDS: MUPIROCIN 2% OINT 22 GM TUBE TOPICAL SCH (09:00)
[2017-05-21] MEDS: ATENOLOL 50 MG TAB PO SCH (09:00)
[2017-05-21] MEDS ORDERED: MUPI2OIN TOPICAL (09:10)
[2017-05-21] MEDS ORDERED: SERO400T PO (09:10)
[2017-05-21] MEDS ORDERED: LACT PO (09:10)
[2017-05-21] MEDS ORDERED: COLL30T TOPICAL (09:10)
[2017-05-21] MEDS ORDERED: HYDR1LOT8 TOPICAL (09:10)
[2017-05-21] MEDS ORDERED: SULF1TAB23 PO (09:14)
[2017-05-21] MEDS ORDERED: RISP1 PO (09:14)
--- NOTE | 2017-05-21 09:22 | HHI.DS ---
Psychiatry Discharge Summary Inpatient Psychiatric care?: Yes Advance Directive: No Mental Health AdvanceDirective: No Health Care Proxy: Yes Admission Admission Date Apr 10, 2017 at 11:33 Admission Diagnosis: (1) Dementia with behavioral disturbance ICD Code: F03.91 Brief History Pt seen and discussed wiht staff. Chart reviewed. Pt is a 76 YOWM with a hx of dementia who was admitted to [facility] under a BA due to aggressive behavior at the group home that he resides. Staff state that pt required two ETOs since admission due to aggression and dangerous behavior. He is now on a 1:1 for safety. He stated to the RN that his father was talking to him. Staff state that he wanders and exit seeks and is impulsive, but has been cooperative with medications. Pt is pleasant during interview. He is oriented to self only. He reports year as 1971 and the POTUS as "Eisenhower". Tobacco Use In Past 30 Days: No Tobacco Past 30 Days Alcohol Use: Monthly or Less Hospital Course Patient was initially set for discharge approximately 1 month ago. However because she was on scheduled Haldol referral source at the last moment refused to accept him. Thus she was continued with his admission. He has since been changed to oral Respinol continues to do well continues demented but pleasantly so. Is been no behavioral problems. He has developed MRSA that is being treated at the present time. We have now found to placement at the [facility] was aware of his medical conditions asthma except of them to his program today. Thus patient will be discharged today to [facility] with Rx 1 month to follow-up both medical and mental health services through their facility Results Blood Pressure 104 / 70 Vital Signs Date Time Temp Pulse Resp B/P Pulse Ox O2 Delivery O2 Flow Rate FiO2 05/21/17 06:00 96.9 80 16 104/70 99 Please see EMR for full lab results Summary of Procedures None done Imaging Last Impressions Head CT 04/09/171732 Signed Impressions: Service Date/Time: March 18:11 - CONCLUSION: Negative noncontrast CT. Chago Jara MD Chest X-Ray 04/09/171732 Signed Impressions: Service Date/Time: March 17:42 - CONCLUSION: No acute disease. Chago Jara MD Pending results at discharge: No Medications # of Antipsychotic meds at D/C: 1 Approp Antipsych med options 1 - Minimum of three failed multiple trials of monotherapy. 2 - Documented plan to taper to monotherapy due to previous use of multiple meds OR cross-taper in progress at D/C. 3 - Documentation of augmentation of Clozapine. 4 - Justification other than those listed in allowable values 1-3, document here : Discharge Discharge Date: May 21, 2017 Discharge Diagnosis: (1) Dementia with behavioral disturbance Diagnosis: Principal ICD Code: F03.91 Mental Status Exam at Disch Alert white male calm cooperative. He is normal active. His mood is euthymic to somewhat restricted with decreased range intensity of his affect. Speech rate and rhythm is slow and somewhat disorganized. There are no auditory or visual hallucinations noted no delusions noted. Insight and judgment judgment is poor. Cognition is impaired Pt Condition on Discharge: Stable Discharge Disposition: Discharge to SNF Discharge Instructions Diet Instructions: As Tolerated, No Restrictions Activities you can perform: Regular-No Restrictions Scheduled Appointment: [facility] and rehab Discharge Time > 30 minutes Discharge/Advance Care Plan Health Problems: (1) Dementia with behavioral disturbance Goals to promote your health * To prevent worsening of your condition and complications * To maintain your health at the optimal level Directions to meet your goals Take your medications as prescribed Follow your dietary instruction Follow activity as directed Keep your appointments as scheduled Take your immunizations and boosters as scheduled If your symptoms worsen call your PCP, if no PCP go to Urgent Care Center or Emergency Room For 11/05 questions related to your inpatient stay or results of tests pending at discharge, please contact Dr. Peter Fang at Smoking is Dangerous to Your Health. Avoid second hand smoking Problem Qualifiers (1) Dementia with behavioral disturbance: Qualified Code: G30.8 - Alzheimer's dementia with behavioral disturbance, unspecified timing of dementia onset Peter Fang MD May 21, 2017 09:22
== END 2017-05-21 14:05 | DRG 57 ==
LOC: NEPE 17:08 → NEDA 04-10 11:33 → H250 04-10 13:10
PROVIDERS: ADMIT Psychiatry & Neurology Psychiatry; ATTEND Psychiatry & Neurology Psychiatry
DX: G30.9 Alzheimer's disease, unspecified (principal); I95.9 Hypotension, unspecified; L03.116 Cellulitis of left lower limb; F02.81 Dementia in other diseases classified elsewhere, unspecified severity, with behavioral disturbance; E86.0 Dehydration; I10 Essential (primary) hypertension; G25.2 Other specified forms of tremor; B86 Scabies; E78.00 Pure hypercholesterolemia, unspecified; N40.0 Benign prostatic hyperplasia without lower urinary tract symptoms; E78.5 Hyperlipidemia, unspecified; S70.361A Insect bite (nonvenomous), right thigh, initial encounter; S40.862A Insect bite (nonvenomous) of left upper arm, initial encounter; G47.00 Insomnia, unspecified; B95.62 Methicillin resistant Staphylococcus aureus infection as the cause of diseases classified elsewhere; W57.XXXA Bitten or stung by nonvenomous insect and other nonvenomous arthropods, initial encounter; Z91.83 Wandering in diseases classified elsewhere
CPT/HCPCS: 70450; 71010; 80048; 80053; 80061; 80307; 81001; 83036; 84443; 85025; 85027; 86403; 87070; 87147; 87186; 87205; 96372; J1630; J2060